=== PATIENT | male | born 1955 | race Caucasian/White ===

== ENCOUNTER 2018-11-24 04:56 | Inpatient (IN) ==
[2018-11-24] MEDS ORDERED: FUROSEMIDE 40 MG/4 ML VIAL IV ONE (05:33)
--- NOTE | 2018-11-24 05:40 | Emergency Department Note ---
SOB HPI - General Chief Complaint: Shortness of Breath/Dyspnea Stated Complaint: short of breathe Time Seen by Provider: 11/24/18 05:25 Mode of arrival: EMS - History of Present Illness This is a dialysis patient was supposed to start dialysis 1/2-hour ago but he was too short of breath and so came to the emergency room. He has a history of heart failure cardiac arrest respiratory failure in the past. He does appear to grossly be fluid overloaded. However he did break a rib last week and saw Dr. Viera on for some sort of cough syndrome but was not given any medication. He does have a history of congestive heart failure fluid overload cardiac arrest and respiratory failure in the past. He is lethargic. - Related Data Home Medications Medication Instructions Recorded Confirmed aspirin 81 mg tablet,delayed 81 mg PO QDAY tab 02/10/15 05/24/17 release insulin U- 100 regular human 100 See Dose Instructions SUB-Q 02/10/15 05/24/17 unit/mL injection solution .COMPLEX ml insulin glargine (U- 100) 100 60 unit SUB-Q BID ml 01/03/16 05/24/17 unit/mL subcutaneous solution prednisoLONE 1% OPHTH DROPS [Pred 1 gtt OD DAILY 08/22/16 05/24/17 Forte Ophth Drops] amLODIPine [Norvasc] 0.5 tab PO DAILY 05/24/17 05/24/17 cyanocobalamin (vit B-12) 1,000 1,000 mcg PO QDAY 10/18/17 mcg tablet lubiprostone 24 mcg capsule 24 mcg PO QDAY PRN cap 10/18/17 minocycline 50 mg capsule 50 mg PO BID cap 10/18/17 Previous Rx's Medication Instructions Recorded pramipexole 0.25 mg tablet 0.25 mg PO HS #30 tab 04/09/18 calcium acetate 667 mg tablet 667 mg PO TID #90 tab 05/15/18 sevelamer HCl 800 mg tablet 2,400 mg PO TID #270 tab 06/23/18 vitamin B complex-vitamin C 100 1 tab PO QDAY #90 tab 07/21/18 mg-folic acid 1 mg tablet gabapentin 100 mg capsule 300 mg PO QDAY #90 cap 10/08/18 allopurinol 100 mg tablet 50 mg PO QDAY 90 Days #45 tab 10/21/18 losartan 50 mg tablet 50 mg PO QDAY #90 tab 10/21/18 rosuvastatin 10 mg tablet 10 mg PO QDAY #30 tab 10/21/18 Allergies Allergy/AdvReac Type Severity Reaction Status Date / Time iron [IRON] Allergy Severe Anaphylaxis Verified 11/19/16 10:55 acetaminophen [From [place]] Allergy Mild Hives Verified 11/19/16 10:55 hydrocodone [From [place]] Allergy Mild Hives Verified 11/19/16 10:55 exenatide [From [place]] Allergy Unknown Unknown Verified 11/19/16 10:55 lisinopril Allergy Unknown Unknown Verified 11/19/16 10:55 Review of Systems All systems ED: reviewed and negative except as stated. Past Medical History - Past Medical History [facility] Narrative: Medical History Cardiac arrest (Acute) Respiratory failure (Acute) Congestive heart failure (Acute) Fluid overload (Acute) Acute decompensated heart failure (Acute) Cellulitis of toe (Acute) Hypoxia (Acute) Acute respiratory failure (Acute) Pulmonary edema with congestive heart failure (Acute) Acute respiratory failure with hypoxia (Acute) Anemia (Chronic) Upper respiratory tract infection (Chronic) Hypertensive renal disease with renal failure (Chronic) Hypertensive renal disease (Chronic) Edema (Chronic) Diabetes mellitus type 2 in obese (Chronic) Chronic kidney disease, stage IV (severe) (Chronic) Vitamin D deficiency (Acute) Tobacco abuse (Acute) Testosterone deficiency (Acute) Sleep apnea (Chronic) Secondary hyperparathyroidism of renal origin (Chronic 08/12/13) Proteinuria (Chronic) Peripheral neuropathy (Acute) Peptic ulcer disease (Acute) Osteoarthritis, knee (Acute) Obesity (Acute) Muscle cramps (Acute 03/07/14) 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 (Acute) Hypertension, essential (Acute) Hyperlipemia (Acute) Hyperkalemia (Acute 07/12/14) HTN (hypertension) (Chronic) Gastroesophageal reflux (Acute) Erectile dysfunction (Acute) Diabetic nephropathy (Acute) Diabetes mellitus type II, uncontrolled (Chronic) Osteoarthrosis (Acute) Congestive heart failure (Acute) Colon polyps (Acute) Chronic obstructive pulmonary disease (Acute) Chronic kidney disease, stage II (mild) (Acute) CAD (coronary artery disease) (Acute) Back pain (Acute) Anemia in chronic kidney disease (Chronic 08/12/13) Past Surgical History History of arthroscopic knee surgery (Acute) History of cataract surgery (Chronic) Family History Sister Diabetes mellitus Father Acute myocardial infarction, Onset Age: 52 Mother Obesity Medical history: Reports: arthritis, COPD, DM, hyperlipidemia, hypertension, renal disease - Social History smoking status: Never smoker Physical Exam Limitations: altered mental status General appearance: lethargic Head: atraumatic Eye: Present: normal appearance ENT: normal exam Neck: Present: normal inspection Chest: Present: normal inspection Respiratory: Present: rales/crackles Cardiovascular: Present: regular rate, normal rhythm, normal heart sounds Abdominal: Present: soft. Absent: distention, tenderness Neurological: Present: alert Psychiatric: Present: normal affect Skin: Present: dry Course Vital Signs Pulse Rate 80 11/24/18 04:57 Respiratory Rate 27 H 11/24/18 04:57 Blood Pressure 153/68 11/24/18 04:57 Pulse Oximetry (%) 100 11/24/18 04:57 Pulse Rate 77 11/24/18 07:17 Respiratory Rate 21 11/24/18 07:17 Blood Pressure 128/55 11/24/18 07:17 Pulse Oximetry (%) 97 11/24/18 07:17 Shortness of Breath/Dyspnea - [facility] Narrative Medical decision making narrative: Portable chest x-ray is not great quality but probably shows fluid overload. I discussed the case with Dr. Mendes and Dr. Ferris and we will start the patient on BiPAP moving to the ICU and initiate dialysis there. He also does still make some urine so we will give Lasix 40 mg IV. Chest x-ray also read by the radiologist as not excluding pneumonia. Did blood cultures and started him on Levaquin and Rocephin. - Lab Data Result diagrams: 11/24/18 05:40 11/24/18 05:40 Lab Results 11/24/18 11/24/18 11/24/18 Range/Units 05:40 05:40 05:40 WBC 14.6 H (4.5-11.0) K/mcL RBC 4.84 (4.50-5.90) M/mcL Hgb 13.0 L (13.5-16.5) g/dL Hct 42.3 (41.0-55.0) % MCV 87.4 (80.0-100.0) fL MCH 26.9 (26.0-34.0) pg MCHC 30.8 L (31.0-36.0) g/dL RDW 18.4 H (11.5-14.5) % Plt Count 256 (140-440) K/mcL MPV 8.8 (7.4-10.4) fL Gran % 91.0 H (38.0-78.0) % Lymph % (Auto) 2.8 L (15.5-49.0) % Grand % (Auto) 5.9 (1.0-12.0) % Eos % (Auto) 0.1 (0.0-7.0) % Baso % (Auto) 0.2 (0.0-2.0) % Gran # 13.3 H (1.8-8.0) K/mcL Lymph # (Auto) 0.4 L (1.5-4.8) K/mcL Grand # (Auto) 0.9 (0.1-0.9) K/mcL Eos # (Auto) 0 (0.0-0.7) K/mcL Baso # (Auto) 0 (0.0-0.3) K/mcL Sodium 135 (133-145) mmol/L Potassium 6.8 H* (3.3-5.1) mmol/L Chloride 88 L (96-108) mmol/L Carbon Dioxide 19 L (22-30) mmol/L Anion Gap 28.0 H (8-16) BUN 91 H (8-23) mg/dl Creatinine 8.7 H* (0.7-1.2) mg/dl GFR Calculation 6 Glucose 111 H (70-105) mg/dL Calcium 8.0 L (8.6-10.4) mg/dl Total Bilirubin 0.6 (0.0-1.0) mg/dL AST 54 H (0-37) U/l ALT 36 (0-40) U/l Alkaline Phosphatase 133 H (39-117) U/L Troponin T 0.23 H* (0-0.03) ng/ml NT-Pro-B Natriuret Pep 88336.0 H (0-125) pg/ml Total Protein 7.5 (5.9-8.4) gm/dL Albumin 4.0 (3.2-5.2) gm/dL Globulin 3.5 (2.2-3.7) gm/dL Albumin/Globulin Ratio 1.1 (1.0-2.3) Procalcitonin (<0.10) ng/mL 11/24/18 Range/Units 05:40 WBC (4.5-11.0) K/mcL RBC (4.50-5.90) M/mcL Hgb (13.5-16.5) g/dL Hct (41.0-55.0) % MCV (80.0-100.0) fL MCH (26.0-34.0) pg MCHC (31.0-36.0) g/dL RDW (11.5-14.5) % Plt Count (140-440) K/mcL MPV (7.4-10.4) fL Gran % (38.0-78.0) % Lymph % (Auto) (15.5-49.0) % Grand % (Auto) (1.0-12.0) % Eos % (Auto) (0.0-7.0) % Baso % (Auto) (0.0-2.0) % Gran # (1.8-8.0) K/mcL Lymph # (Auto) (1.5-4.8) K/mcL Grand # (Auto) (0.1-0.9) K/mcL Eos # (Auto) (0.0-0.7) K/mcL Baso # (Auto) (0.0-0.3) K/mcL Sodium (133-145) mmol/L Potassium (3.3-5.1) mmol/L Chloride (96-108) mmol/L Carbon Dioxide (22-30) mmol/L Anion Gap (8-16) BUN (8-23) mg/dl Creatinine (0.7-1.2) mg/dl GFR Calculation Glucose (70-105) mg/dL Calcium (8.6-10.4) mg/dl Total Bilirubin (0.0-1.0) mg/dL AST (0-37) U/l ALT (0-40) U/l Alkaline Phosphatase (39-117) U/L Troponin T (0-0.03) ng/ml NT-Pro-B Natriuret Pep (0-125) pg/ml Total Protein (5.9-8.4) gm/dL Albumin (3.2-5.2) gm/dL Globulin (2.2-3.7) gm/dL Albumin/Globulin Ratio (1.0-2.3) Procalcitonin 0.99 (<0.10) ng/mL - Radiology Data Radiology results reviewed: Yes I reviewed the patient's radiology results. Disposition Pt seen by CABLEWAY OPERATOR/PA only: No Clinical Impression: Community acquired pneumonia, Congestive heart failure, Fluid overload, Chronic kidney disease, stage IV (severe) Disposition: Xfer As Inpt ([facility]) Condition: Fair Time of Disposition: 08:54
--- NOTE | 2018-11-24 05:47 | XRay Report ---
INDICATION: History of congestive heart failure. Dyspnea. TECHNIQUE: AP chest x-ray,portable semiupright COMPARISON: Previous examination dated 03/12/2017 FINDINGS:Previous median sternotomy. There is mild cardiomegaly. Upper lobe vascularity is prominent suggesting pulmonary congestion. Upright PA and lateral chest x-ray recommended when clinically appropriate. There is mild left basilar infiltrate. This may be benign volume loss but pneumonia is possible. Clinical correlation and follow-up radiographs are necessary. IMPRESSION: 1. Mild cardiomegaly and probable pulmonary congestion 2. Left lower lobe parenchymal density consistent with atelectasis or pneumonia. 3. Upright PA and lateral chest x-ray is recommended when clinically appropriate Interpreted and Authenticated by: Chris Pérez 11/24/18
[2018-11-24] MEDS ORDERED: LEVOFLOXACIN 750 MG/150 ML BAG IV ONE (06:16)
[2018-11-24] MEDS ORDERED: cefTRIAXone 1 GM VIAL IV ONE (06:16)
[2018-11-24 06:41] LABS: Basophils # (Auto) 0 K/mcL (0.0-0.3); Basophils % (Auto) 0.2 % (0.0-2.0); Eosinophils # (Auto) 0 K/mcL (0.0-0.7); Eosinophils % (Auto) 0.1 % (0.0-7.0); Lymphocytes # (Auto) 0.4 K/mcL (1.5-4.8); Lymphocytes % (Auto) 2.8 % (15.5-49.0); Mean Cell Volume 87.4 fL (80.0-100.0); Mean Corpuscular HGB Conc 30.8 g/dL (31.0-36.0); Monocytes # (Auto) 0.9 K/mcL (0.1-0.9); Monocytes % (Auto) 5.9 % (1.0-12.0); Platelet Count 256 K/mcL (140-440); RBC 4.84 M/mcL (4.50-5.90); Red Cell Distribution Width 18.4 % (11.5-14.5)
[2018-11-24] MEDS ORDERED: VANCOMYCIN 1,500 MG in 0.9 % SODIUM CHLORIDE 500 ML IV ONE ×2 (06:53→15:30)
[2018-11-24 06:59] LABS: ALT/SGPT 36 U/l (0-40); Albumin/Globulin Ratio 1.1 (1.0-2.3); Alkaline Phosphatase 133 U/L (39-117); Blood Urea Nitrogen 91 mg/dl (8-23)
[2018-11-24] MEDS ORDERED: CALCIUM GLUCONATE 4.65 MEQ/10 ML VIAL IV ONE (07:10)
--- NOTE | 2018-11-24 07:50 | Internal Med History&Physical ---
Medical - H&P: HPI Patient information: Note initiated : 11/24/18 at 7:40 am Service Date, if different from initiated Date: [] Patient: Delonte Gutierres a 63 y/o M admitted on for SOB . Chief Complaint: [] History of present illness: Mr. Gutierres is a 63 year old M with a very complicated medical history, and sees multiple providers in different medical systems, he presents to the ER today accompanied by his daughter for evaluation of shortness of breath, cough, weakness and lethargy. The patient is unable to provide a meaningful history, most of the history is from chart review and talking with the daughter who is at bed side. The patient has been in his usual self, and had his dialysis as per schedule. The patient had a fall a day before his previous dialysis I believe, he had pain on the left side of the chest, he was admitted at [facility] and diagnosed with a rib fracture. Patient was given pain medications, the patient had some cough, but otherwise did not have any other issues. Yesterday the patient was noted to be weak, had cough, and had shortness of breath on minimal exertion. The daughter this morning when she woke up to get the patient for dialysis noted that he was unable to stand and his mental status was noted at baseline. He was therefore brought to the emergency room for further evaluation. The patient has had right-sided below-knee amputation done I believe for peripheral vascular disease, according to the daughter the patient left leg was not significantly discolored when she put the socks on. During my evaluation today in the emergency room the patient's left leg appeared to be purplish in color, and was cold to touch. According to the daughter this was new since last night. In the emergency room on presentation patient was afebrile, tachypneic, heart rate 80 blood pressure 155/ 60 saturating 100% on 2 L, the patient labs show WBC count of 14.6 hemoglobin 13 platelets 256, sodium 135 potassium 6.8 bicarbonate 19 creatinine 8.7 glucose 111, lactic acid 1.8, troponin 0 0.23 has been elevated in the past, pro calcitonin 0.99. Blood gas, venous, shows pH of 7.13, PCO2 66 PO2 32 EKG shows sinus rhythm incomplete right bundle branch block. Chest x-ray shows left lower lobe pneumonia versus atelectasis mild cardiomegaly and pulmonary congestion. Echocardiogram done in 2014 showed mild aortic stenosis left ventricular hypertrophy and normal left ventricular ejection fraction. The left lower extremity had positive Doppler, however no palpable pulses, the foot was cool to touch, not sure if this is a chronic finding or an acute findi ng however according to the daughter this is a new finding since yesterday. We will get a CT angios done on the left foot. Nephrology has been consulted in the ED, urgent dialysis scheduled. Patient is being admitted to the hospital for further management ROS unobtainable: due to mental status Medical - H&P: PMH Medical history: Medical History Diabetes Mellitus Type II,Polyneuropathy in Diabetes Mellitus,Degenerative Joint Disease,Chronic Back Pain,CHF,Left Knee Osteoarthritis,CAD,COPD,Right Plantar Fasciitis,Colon Polyp(s),GERD,Hyperkalemia,PUD,Secondary Hyperparathyroidism, hx of MRSA, SCC Left neck Webster exc 01/22/18. Surgical history: Past Surgical History Past Surgical History: Reviewed, no changes required. Left Knee Arthroscopy x 3, Left Heart Catheterization and Angiography, 12/19/2005, Lucita, Right Foot I&D with Wound Debridement, 09/19/2010, Lino, Colonoscopy x 2, 01/23/2006 and 10/12/2014, Marissa, EGD, 10/13/2014, Marissa, Radionuclide Myocardial Perfusion, 10/02/2010, Excision of Left Cataract(s), 11/2015, Open heart surgery, Right 5th toe amputation, 08/31/16, [facility], Right partial 5th metatarsal amputation, 09/20/16, [facility], Right 3rd and 4th TMA, 11/25/16, Sayda [facility],, Right 1st, 2nd and 4th transmetatarsal amputation, 03/12/17, Ahmed tube shunt with graft right eye, 06/17/2017 - Dann [facility]lejo [facility] at [facility], Right knee amputation MAY 2017.Revised Amputation August 2017 Pertinent family history: Family History Sister Diabetes mellitus Father Acute myocardial infarction, Onset Age: 52 Mother Obesity Medical - H&P: Meds Home Medications Medication Instructions Recorded Confirmed Type aspirin 81 mg tablet,delayed 81 mg PO QDAY tab 02/10/15 05/24/17 History release insulin U- 100 regular human 100 See Dose Instructions SUB-Q 02/10/15 05/24/17 History unit/mL injection solution .COMPLEX ml insulin glargine (U- 100) 100 60 unit SUB-Q BID ml 01/03/16 05/24/17 History unit/mL subcutaneous solution prednisoLONE 1% OPHTH DROPS [Pred 1 gtt OD DAILY 08/22/16 05/24/17 History Forte Ophth Drops] amLODIPine [Norvasc] 0.5 tab PO DAILY 05/24/17 05/24/17 History cyanocobalamin (vit B-12) 1,000 1,000 mcg PO QDAY 10/18/17 History mcg tablet lubiprostone 24 mcg capsule 24 mcg PO QDAY PRN cap 10/18/17 History minocycline 50 mg capsule 50 mg PO BID cap 10/18/17 History pramipexole 0.25 mg tablet 0.25 mg PO HS #30 tab 04/09/18 Rx calcium acetate 667 mg tablet 667 mg PO TID #90 tab 05/15/18 Rx sevelamer HCl 800 mg tablet 2,400 mg PO TID #270 tab 06/23/18 Rx vitamin B complex-vitamin C 100 1 tab PO QDAY #90 tab 07/21/18 Rx mg-folic acid 1 mg tablet gabapentin 100 mg capsule 300 mg PO QDAY #90 cap 10/08/18 Rx allopurinol 100 mg tablet 50 mg PO QDAY 90 Days #45 tab 10/21/18 Rx losartan 50 mg tablet 50 mg PO QDAY #90 tab 10/21/18 Rx rosuvastatin 10 mg tablet 10 mg PO QDAY #30 tab 10/21/18 Rx Allergies Allergy/AdvReac Type Severity Reaction Status Date / Time iron [IRON] Allergy Severe Anaphylaxis Verified 11/19/16 10:55 acetaminophen [From [place]] Allergy Mild Hives Verified 11/19/16 10:55 hydrocodone [From [place]] Allergy Mild Hives Verified 11/19/16 10:55 exenatide [From [place]] Allergy Unknown Unknown Verified 11/19/16 10:55 lisinopril Allergy Unknown Unknown Verified 11/19/16 10:55 Medical - H&P: Exam - Constitutional Vitals: Pulse Resp BP Pulse Ox 77 21 128/55 97 11/24/18 07:17 11/24/18 07:17 11/24/18 07:17 11/24/18 07:17 Exam: GENERAL: The patient is a well-developed, obese , well-nourished in no apparent distress. Is drowys, and and oriented x 1. VITAL SIGNS: Reviewed and as noted elsewhere. HEENT: Head is normocephalic and atraumatic. Extraocular muscles are intact. Pupils are equal, round, and reactive to light. Nares appeared normal. Mouth appears any without lesions. Mucous membranes are dry. NECK: Normal to inspection, Supple, No lymphadenopathy or thyromegaly. LUNGS: Air entry equal on both sides, decreased air entry on both sides, prolonged exp phase, mild exp wheeze, bibasilar crackles, No accessory muscles of respiration, pt on bipap. HEART: Regular rate and rhythm normal, S1 and S2 heard, no Gallop, S3 or Rub Noted, systolic murmur mitral region, s4 heard, ABDOMEN: Soft, nontender, and nondistended. Positive bowel sounds. No hepatosplenomegaly was noted. EXTREMITIES: No cyanosis, clubbing, rash, Right bka, Left leg, has edema ++, foot cold to touch, purplish huse, but has significant v aricosities, no DP to palpation, but doppler positive. NEUROLOGIC: Cranial nerves II through XII are grossly intact. Motor and Sensory System Grossly Intact PSYCHIATRIC: drowsy on bipap SKIN: No jaundice, No rash noted. Medical - H&P: Reslt - Labs CBC & Chem 7: 11/24/18 05:40 11/24/18 05:40 Labs: Short CBC 11/24/18 Range/Units 05:40 WBC 14.6 H (4.5-11.0) K/mcL Hgb 13.0 L (13.5-16.5) g/dL Hct 42.3 (41.0-55.0) % Plt Count 256 (140-440) K/mcL BMP 11/24/18 05:40 Sodium 135 Potassium 6.8 H* Chloride 88 L Carbon Dioxide 19 L BUN 91 H Creatinine 8.7 H* Glucose 111 H Calcium 8.0 L Cardiac Enzymes 11/24/18 Range/Units 05:40 Troponin T 0.23 H* (0-0.03) ng/ml Liver Function 11/24/18 Range/Units 05:40 Total Bilirubin 0.6 (0.0-1.0) mg/dL AST 54 H (0-37) U/l ALT 36 (0-40) U/l Alkaline Phosphatase 133 H (39-117) U/L Albumin 4.0 (3.2-5.2) gm/dL Medical - H&P: A/P - Narrative A/P Narrative: A/P Acute on chr Hypoxic/Hypercapenic Respiratory Failure Acute COPD Exacerbation Acute CHF Exacerbation, Diastolic End Stage Renal Disease, On HD, followed by Dr Mendes Peripheral Vascular disease Health Care Associated Pneumonia. Acute Hyperkalemia Diabetes Mellitus CAD s/p CABG HTN HLD Chr back pain Peripheral neuropathy Plan Admit to ICU on BIPAP for respirtory management. Nephrology consulted for urgent Hemodialysis Given possible acute on chronic limb ischemia, will get CTA of the left leg, before HD. Medical Management of Hyperkalemia/ Calcium and lasix given, HD planned soon. 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
[2018-11-24] MEDS ORDERED: IOPAMIDOL 100 ML BOTTLE IV ONE (08:34)
[2018-11-24] MEDS ORDERED: NALOXONE HCL 0.4 MG/ML VIAL IV PRN (09:00)
[2018-11-24] MEDS ORDERED: DEXTROSE 31 GM ORAL.SUSP PO PRN (09:00)
[2018-11-24] MEDS ORDERED: ONDANSETRON 4 MG/2 ML VIAL IV PRN (09:00)
[2018-11-24] MEDS ORDERED: ACETAMINOPHEN 325 MG TABLET PO PRN (09:00)
[2018-11-24] MEDS ORDERED: NALOXONE HCL 0.4 MG/ML VIAL ONE (09:00)
[2018-11-24] MEDS ORDERED: VANCOMYCIN PER PHARMACY IV ONE (09:00)
[2018-11-24] MEDS ORDERED: DEXTROSE 50% 50 ML VIAL IV PRN (09:00)
[2018-11-24] MEDS ORDERED: IPRATROPIUM/ALBUTEROL 3 ML AMPUL.NEB NEB ONE (09:01)
--- NOTE | 2018-11-24 09:08 | Cat Scan Report ---
CLINICAL INFORMATION: Diabetes. Previous right below the knee amputation. Cold left foot TECHNIQUE: 80 mL contrast material injected. Routine distal aortogram and runoff performed. MIP and MPR reformatted images were obtained COMPARISON: None FINDINGS: Previous right below the knee amputation. Calcifications in the distal abdominal aorta. No abdominal aortic aneurysm. There is dense calcification in the common iliac arteries bilaterally. There is no stenosis or occlusion. External iliac arteries are negative. There is calcification in the right common femoral artery. This vessel is patent without stenosis. There is extensive calcification in the right superficial femoral artery. There are multiple stenoses estimated at approximately 50% diameter. There is a stent in the distal right superficial femoral artery. No definite contrast is identified within the stent lumen consistent with complete occlusion. The right popliteal artery is opacified proximally. There is dense calcification of the distal popliteal artery. I believe this is patent. There is calcification of the anterior tibial artery without definite occlusion. Posterior tibial artery and peroneal artery are calcified and probably occluded. There is a 3 cm subcutaneous fluid collection at the right BKA stump. There is dense calcification of the left common femoral artery. There is 50% diameter stenosis of the proximal left superficial femoral artery. There are is extensive calcified plaque in the left superficial femoral artery. There is extensive luminal irregularity with short segment stenoses and occlusions. Left popliteal artery is patent. There is 50% diameter stenosis of the distal left popliteal artery. There is calcification of the left tibial peroneal trunk and short segment occlusion. Anterior and posterior tibial arteries are calcified. Left anterior tibial artery is occluded. There is distal reconstitution. Left posterior tibial artery is patent to the ankle. Incidental note is made of a popliteal cyst There is no pelvic mass. No free pelvic fluid. No localized fluid collections. There is prominent fecal material within the rectum. No pelvic or sacral fracture. No hip fracture. No evidence for osteomyelitis. No fracture. IMPRESSION: 1. Extensive calcified atherosclerotic plaque. Previous right below the knee amputation 2. Stent in the distal right superficial femoral artery. This is occluded. Multiple stenoses of 50% or greater in the right superficial femoral artery 3. Extensive calcification of the left superficial femoral artery with short segmental stenoses and occlusions. Left popliteal artery is patent 4. Hemodynamically significant stenosis of the distal left popliteal artery 5. Occlusion of the left tibial peroneal trunk. Complete occlusion of the left anterior tibial artery with distal reconstitution Interpreted and Authenticated by: Chris Pérez 11/24/18
[2018-11-24] MEDS: PANTOPRAZOLE 40 MG TABLET PO SCH (09:13)
[2018-11-24] MEDS: HEPARIN 5,000 UNIT/ML VIAL SQ SCH ×2 (09:17→22:17)
[2018-11-24] MEDS: methylPREDNISolone SOD SUCC 125 MG/2 ML VIAL IV SCH ×3 (09:18→22:17)
[2018-11-24] MEDS ORDERED: CEFEPIME 1 GM VIAL IV ONE (10:00)
[2018-11-24] MEDS ORDERED: LORazepam 2 MG/ML VIAL IV ONE (10:04)
[2018-11-24] MEDS: IPRATROPIUM/ALBUTEROL 3 ML AMPUL.NEB NEB SCH ×4 (11:12→22:48)
[2018-11-24] MEDS: INSULIN LISPRO 1 UNIT/0.01 ML UNIT SQ SCH ×3 (14:38→21:10)
[2018-11-24] MEDS: 0.9 % SODIUM CHLORIDE 10 ML SYRINGE IV SCH ×2 (14:38→22:17)
[2018-11-24] MEDS ORDERED: VANCOMYCIN PER PHARMACY IV SCH (15:30)
[2018-11-24] MEDS ORDERED: 0.9 % SODIUM CHLORIDE 250 ML IV ONE (15:45)
[2018-11-24] MEDS ORDERED: 0.9 % SODIUM CHLORIDE 500 ML IV ONE ×2 (16:23→21:48)
--- NOTE | 2018-11-24 18:14 | Nephrology Consult Note ---
History of Present Illness - Reason for Consult Patient information: Note initiated : 11/24/18 at 6:08 pm Service Date, if different from initiated Date: [] Patient: Delonte Gutierres 63 y/o M admitted on 11/24/18 for SOB . 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 His daughter was driving him to dialysis this am and found him very SOB and confused and she reports an episode of vomiting and hence brought him to ED instead. Patient was evaluated in the ED and found hypoxic, encephalopathic and his labs were significant for elevated white count, hyperkalemia, acidosis and his CXR showed mild pulmonary congestion and possible atelectasis vs pna He was also noted to purplish discoloration of his right LE and it was cold and hence CTA was obtained The patient was started on bipap ventilation The patient was ? hospitalised at [facility] for his rib fracture He is been treated for possible HCAP PNA, and encephalopathy Review of Systems All systems PM: reviewed and no additional remarkable complaints except as stated (in HPI) Past History Past medical history: DM type 2 with retinopathy, neuropathy, nephropathy ESRD on HD anemia of CKD secondary hyperparathyroidism HTN CHF KEY on cpap dyslipidemia PVD ? COPD Past surgical history: S/P avf s/p CABG and mitral valve repair h/o left BKA Past family history: not pertinent Past social history: lives with his retired h/o smoking, currently using nicotine patch remote history of smoking marijuana and use of cocaine Medications and Allergies Home Medications Medication Instructions Recorded Confirmed Type aspirin 81 mg tablet,delayed 81 mg PO QDAY tab 02/10/15 11/24/18 History release insulin U- 100 regular human 100 See Dose Instructions SUB-Q 02/10/15 11/24/18 History unit/mL injection solution .COMPLEX ml insulin glargine (U- 100) 100 55 unit SUB-Q BID ml 01/03/16 11/24/18 History unit/mL subcutaneous solution prednisoLONE 1% OPHTH DROPS [Pred 1 gtt OD DAILY 08/22/16 11/24/18 History Forte Ophth Drops] amLODIPine [Norvasc] 2.5 mg PO DAILY 05/24/17 11/24/18 History cyanocobalamin (vit B-12) 1,000 1,000 mcg PO QDAY 10/18/17 11/24/18 History mcg tablet lubiprostone 24 mcg capsule 24 mcg PO QDAY PRN cap 10/18/17 11/24/18 History minocycline 50 mg capsule 50 mg PO BID cap 10/18/17 11/24/18 History calcium acetate 667 mg tablet 667 mg PO TID #90 tab 05/15/18 11/24/18 Rx vitamin B complex-vitamin C 100 1 tab PO QDAY #90 tab 07/21/18 11/24/18 Rx mg-folic acid 1 mg tablet allopurinol 100 mg tablet 50 mg PO QDAY 90 Days #45 tab 10/21/18 11/24/18 Rx losartan 50 mg tablet 50 mg PO QDAY #90 tab 10/21/18 11/24/18 Rx rosuvastatin 10 mg tablet 10 mg PO QDAY #30 tab 10/21/18 11/24/18 Rx DULoxetine HCL [Cymbalta] 60 mg PO DAILY 11/24/18 11/24/18 History Furosemide [Lasix] 160 mg PO BID 11/24/18 11/24/18 History Gabapentin [Neurontin] 100 mg PO QDAY 11/24/18 11/24/18 History Gabapentin [Neurontin] 200 mg PO HS 11/24/18 11/24/18 History Latanoprost/Pf [Latanoprost 0.005% 1 drp OU DAILY 11/24/18 11/24/18 History Eye Drop] Pramipexole [Mirapex] 0.125 mg PO HS 11/24/18 11/24/18 History Pramipexole [Mirapex] 0.25 mg PO HS 11/24/18 11/24/18 History Ranitidine HCl [Heartburn Relief] 150 mg PO BID 11/24/18 11/24/18 History Sevelamer HCl [Renagel] 800 mg PO TID 11/24/18 11/24/18 History oxyCODONE HCL [Oxycodone HCl] 1 - 2 tab PO Q6 PRN 11/24/18 11/24/18 History Allergies Allergy/AdvReac Type Severity Reaction Status Date / Time iron [IRON] Allergy Severe Anaphylaxis Verified 11/19/16 10:55 acetaminophen [From [place]] Allergy Mild Hives Verified 11/19/16 10:55 hydrocodone [From [place]] Allergy Mild Hives Verified 11/19/16 10:55 exenatide [From [place]] Allergy Unknown Unknown Verified 11/19/16 10:55 lisinopril AdvReac Mild Cough Verified 11/24/18 09:25 Exam - Vital Signs Vital signs: Temp Pulse Resp BP Pulse Ox 99.5 F H 86 18 74/44 95 11/24/18 14:35 11/24/18 16:03 11/24/18 16:03 11/24/18 16:01 11/24/18 16:03 - General Appearance General appearance: appears started age, chronically ill EENT: mucous membranes moist Neck: no JVD Respiratory: rales, course breath sounds Cardiology: no rub, edema, irregular rhythm Gastrointestinal: no tenderness, no guarding Integumentary: no rash Neurologic: obtunded Musculoskeletal: no erythema, no cyanosis Results - Lab Results 11/24/18 05:40 11/24/18 05:40 Most recent lab results Calcium 8.0 mg/dl (8.6-10.4) L 11/24/18 05:40 Assessment and Plan (1) ESRD (end stage renal disease) on dialysis Status: Acute (2) Metabolic acidosis with respiratory acidosis Status: Acute (3) Community acquired pneumonia Status: Acute (4) Acute respiratory failure Status: Acute (5) Hyperkalemia Status: Acute - Narrative A/P Narrative: esrd on HD, patient with hyperkalemia, severe metabolic and respiratory acidosis, PNA, AMS from multifactorial etiology HD done today for 4 hrs using revaclear dialyser, 1K/2K dialysate for 2 hrs each, 2.5Ca, UF goal of 3.8L achieved with using QB 350ml/min, QD 800ml/min patient did become mildly hypotensive post dialysis for which he received IV fluid bolus consider pressors if no improvement will monitor for needs of HD please dose meds to dialysis Will follow along
[2018-11-24] MEDS ORDERED: THIAMINE 100 MG in 0.9 % SODIUM CHLORIDE 50 ML IV ONE (20:36)
[2018-11-24] MEDS ORDERED: THIAMINE 100 MG/ML VIAL ONE (20:50)
[2018-11-24 21:40] LABS: Basophils # (Auto) 0 K/mcL (0.0-0.3); Basophils % (Auto) 0 % (0.0-2.0); Eosinophils # (Auto) 0 K/mcL (0.0-0.7); Eosinophils % (Auto) 0 % (0.0-7.0); Granulocytes % (Auto) 93.4 % (38.0-78.0); Lymphocytes # (Auto) 0.2 K/mcL (1.5-4.8); Mean Cell Volume 86.8 fL (80.0-100.0); Monocytes # (Auto) 0.5 K/mcL (0.1-0.9); Monocytes % (Auto) 4.6 % (1.0-12.0); Platelet Count 188 K/mcL (140-440); RBC 4.78 M/mcL (4.50-5.90); Red Cell Distribution Width 17.9 % (11.5-14.5)
[2018-11-24 22:02] LABS: ALT/SGPT 41 U/l (0-40); Albumin 3.4 gm/dL (3.2-5.2); Albumin/Globulin Ratio 1.1 (1.0-2.3); Alkaline Phosphatase 101 U/L (39-117); Bilirubin,Direct < 0.2 mg/dL (0.0-0.3); Blood Urea Nitrogen 47 mg/dl (8-23); Gamma Glutamyl Transpeptidase 34 U/L (8-61); Uric Acid 4.7 mg/dL (2.5-8.0)
[2018-11-25 02:50] LABS: Amphetamine Screen,Urine SUSPECT POSITIVE (NONDETECTED); Benzodiazepines Screen,Urine NONE DETECTED (NONDETECTED); Cocaine Screen,Urine NONE DETECTED (NONDETECTED); Opiate Screen,Urine NONE DETECTED (NONDETECTED); Oxycodone, Urine Screen SUSPECT POSITIVE (NONDETECTED)
[2018-11-25] MEDS: IPRATROPIUM/ALBUTEROL 3 ML AMPUL.NEB NEB SCH ×3 (03:19→11:02)
[2018-11-25] MEDS: 0.9 % SODIUM CHLORIDE 10 ML SYRINGE IV SCH ×2 (05:28→13:53)
[2018-11-25] MEDS: methylPREDNISolone SOD SUCC 125 MG/2 ML VIAL IV SCH ×2 (05:28→13:53)
[2018-11-25 06:17] LABS: Basophils # (Auto) 0 K/mcL (0.0-0.3); Basophils % (Auto) 0 % (0.0-2.0); Eosinophils # (Auto) 0 K/mcL (0.0-0.7); Eosinophils % (Auto) 0 % (0.0-7.0); Granulocytes % (Auto) 93.4 % (38.0-78.0); Lymphocytes # (Auto) 0.3 K/mcL (1.5-4.8); Mean Cell Volume 87.6 fL (80.0-100.0); Mean Corpuscular HGB Conc 31.1 g/dL (31.0-36.0); Monocytes # (Auto) 0.7 K/mcL (0.1-0.9); Monocytes % (Auto) 4.6 % (1.0-12.0); Platelet Count 170 K/mcL (140-440); RBC 4.46 M/mcL (4.50-5.90); Red Cell Distribution Width 18.1 % (11.5-14.5)
[2018-11-25] MEDS: PANTOPRAZOLE 40 MG TABLET PO SCH (07:23)
[2018-11-25 07:43] LABS: ALT/SGPT 40 U/l (0-40); Albumin 3.1 gm/dL (3.2-5.2); Alkaline Phosphatase 94 U/L (39-117); Bilirubin,Direct < 0.2 mg/dL (0.0-0.3); Blood Urea Nitrogen 57 mg/dl (8-23); Gamma Glutamyl Transpeptidase 31 U/L (8-61); Uric Acid 5.7 mg/dL (2.5-8.0)
--- NOTE | 2018-11-25 08:30 | XRay Report ---
INDICATION: Pneumonia TECHNIQUE: AP chest x-ray,portable semiupright COMPARISON: Previous examinations dated 11/24/2018 and 03/12/2017 FINDINGS:Significant interval worsening. Bilateral diffuse pulmonary parenchymal infiltrates are not present. These are new. This rapid change suggests diffuse pulmonary edema. Clinical correlation is necessary. Pneumonia or ARDS or possible. IMPRESSION: 1. Significantly worse chest x-ray since 11/24/2018 2. Diffuse pulmonary parenchymal infiltrates. Findings are most consistent with pulmonary edema. Pneumonia or ARDS are possible Interpreted and Authenticated by: Chris Pérez 11/25/18
[2018-11-25] MEDS: HEPARIN 5,000 UNIT/ML VIAL SQ SCH (08:46)
[2018-11-25] MEDS: INSULIN LISPRO 1 UNIT/0.01 ML UNIT SQ SCH ×2 (08:46→13:51)
[2018-11-25] MEDS ORDERED: CEFEPIME 1 GM VIAL IV SCH (09:00)
[2018-11-25] MEDS ORDERED: THIAMINE 100 MG in 0.9 % SODIUM CHLORIDE 50 ML IV SCH (09:00)
--- NOTE | 2018-11-25 11:40 | Transfer Summary ---
Transfer Discharge Sum: Prov Patient information: Note initiated : 11/25/18 at 11:38 am Service Date, if different from initiated Date: [] Patient: eDlonte Gutierres 63 y/o M admitted on 11/24/18 for SOB . Chief Complaint: [] Date of admission: 11/24/18 08:29 Discharge Date: 11/25/18 Consults: 11/24/18 Consult to Physician [CONS] Stat Comment: Consulting Provider: Melinda Mendes Reason For Exam: Physician to Consult Consult to Physician [CONS] Stat Comment: Consulting Provider: Sridevi Ferris Reason For Exam: Physician to Consult Discharging clinician: Sridevi Ferris Transfer Discharge Sum: Med - Medications Active and Home Medications: Home Medications aspirin 81 mg tablet,delayed release 81 mg PO QDAY tab 02/10/15 [History Confirmed 11/24/18] insulin U- 100 regular human 100 unit/mL injection solution See Dose Instructions SUB-Q .COMPLEX ml 02/10/15 [History Confirmed 11/24/18] insulin glargine (U- 100) 100 unit/mL subcutaneous solution 55 unit SUB-Q BID ml 01/03/16 [History Confirmed 11/24/18] prednisoLONE 1% OPHTH DROPS [Pred Forte Ophth Drops] 1 gtt OD DAILY 08/22/16 [History Confirmed 11/24/18] amLODIPine [Norvasc] 2.5 mg PO DAILY 05/24/17 [History Confirmed 11/24/18] cyanocobalamin (vit B-12) 1,000 mcg tablet 1,000 mcg PO QDAY 10/18/17 [History Confirmed 11/24/18] lubiprostone 24 mcg capsule 24 mcg PO QDAY PRN cap 10/18/17 [History Confirmed 11/24/18] minocycline 50 mg capsule 50 mg PO BID cap 10/18/17 [History Confirmed 11/24/18] calcium acetate 667 mg tablet 667 mg PO TID #90 tab 05/15/18 [Rx Confirmed 11/24/18] vitamin B complex-vitamin C 100 mg-folic acid 1 mg tablet 1 tab PO QDAY #90 tab 07/21/18 [Rx Confirmed 11/24/18] allopurinol 100 mg tablet 50 mg PO QDAY 90 Days #45 tab 10/21/18 [Rx Confirmed 11/24/18] losartan 50 mg tablet 50 mg PO QDAY #90 tab 10/21/18 [Rx Confirmed 11/24/18] rosuvastatin 10 mg tablet 10 mg PO QDAY #30 tab 10/21/18 [Rx Confirmed 11/24/18] DULoxetine HCL [Cymbalta] 60 mg PO DAILY 11/24/18 [History Confirmed 11/24/18] Furosemide [Lasix] 160 mg PO BID 11/24/18 [History Confirmed 11/24/18] Gabapentin [Neurontin] 100 mg PO QDAY 11/24/18 [History Confirmed 11/24/18] Gabapentin [Neurontin] 200 mg PO HS 11/24/18 [History Confirmed 11/24/18] Latanoprost/Pf [Latanoprost 0.005% Eye Drop] 1 drp OU DAILY 11/24/18 [History Confirmed 11/24/18] Pramipexole [Mirapex] 0.125 mg PO HS 11/24/18 [History Confirmed 11/24/18] Pramipexole [Mirapex] 0.25 mg PO HS 11/24/18 [History Confirmed 11/24/18] Ranitidine HCl [Heartburn Relief] 150 mg PO BID 11/24/18 [History Confirmed 11/24/18] Sevelamer HCl [Renagel] 800 mg PO TID 11/24/18 [History Confirmed 11/24/18] oxyCODONE HCL [Oxycodone HCl] 1 - 2 tab PO Q6 PRN 11/24/18 [History Confirmed 11/24/18] Active Medications Acetaminophen (Tylenol) 650 mg PO Q4-6HP PRN PRN Reason: PAIN/FEVER > 101 Albuterol/Ipratropium (Duoneb) 3 ml NEB Q4HRT [facility] Last Admin: 11/25/18 11:02 Dose: 3 ml Documented by: Cefepime HCl (Maxipime) 0.5 gm IV Q24H [facility] Last Admin: 11/25/18 09:48 Dose: 0.5 gm Documented by: Dextrose (Dextrose 50%) 0 ml IV UD PRN PRN Reason: Hypoglycemia Diagnostic Test (Pha) (Accu-Chek) 1 each FS ACHS [facility] Last Admin: 11/25/18 08:17 Dose: 1 each Documented by: Glucose (Insta-Glucose) 15 gm PO PRN PRN PRN Reason: Hypoglycemia Heparin Sodium (Porcine) (Heparin) 5,000 unit SQ Q12 [facility] Last Admin: 11/25/18 08:46 Dose: 5,000 unit Documented by: Thiamine HCl 100 mg/ Sodium (Chloride) 51 mls @ 50 mls/hr IV DAILY [facility] Stop: 11/27/18 10:02 Last Infusion: 11/25/18 09:49 Dose: Infused Documented by: Insulin Human Lispro (Humalog) 0 unit SQ ACHS [facility]; Protocol Last Admin: 11/25/18 08:46 Dose: 6 unit Documented by: Methylprednisolone Sodium Succinate (Solu-Medrol) 62.5 mg IV Q8 [facility] Last Admin: 11/25/18 05:28 Dose: 62.5 mg Documented by: Naloxone HCl (Narcan) 0.1 mg IV Q2MIN PRN PRN Reason: Opiate Reversal Last Admin: 11/24/18 16:57 Dose: 0.1 mg Documented by: Ondansetron HCl (Zofran) 4 mg IV Q4-6HP PRN PRN Reason: Nausea And Vomiting Pantoprazole Sodium (Protonix) 40 mg PO QAMAC [facility] Last Admin: 11/25/18 07:23 Dose: Not Given Documented by: Sodium Chloride (Saline Flush) 10 ml IV Q8 [facility] Last Admin: 11/25/18 05:28 Dose: 10 ml Documented by: Vancomycin HCl (Vancomycin Per Pharmacy) 1 order IV UD [facility]; Protocol Transfer Discharge Sum: Hosp Hospital course: Mr. Gutierres is a 63 year old M with a very complicated medical history, and sees multiple providers in different medical systems, he presents to the ER today accompanied by his daughter for evaluation of shortness of breath, cough, weakness and lethargy. The patient is unable to provide a meaningful history, most of the history is from chart review and talking with the daughter who is at bed side. The patient has been in his usual self, and had his dialysis as per schedule. The patient had a fall a day before his previous dialysis I believe, he had pain on the left side of the chest, he was admitted at [facility] and diagnosed with a rib fracture. Patient was given pain medications, the patient had some cough, but otherwise did not have any other issues. Yesterday the patient was noted to be weak, had cough, and had shortness of breath on minimal exertion. The daughter this morning when she woke up to get the patient for dialysis noted that he was unable to stand and his mental status was noted at baseline. He was therefore brought to the emergency room for further evaluation. The patient has had right-sided below-knee amputation done I believe for peripheral vascular disease, according to the daughter the patient left leg was not significantly discolored when she put the socks on. During my evaluation today in the emergency room the patient's left leg appeared to be purplish in color, and was cold to touch. According to the daughter this was new since last night. In the emergency room on presentation patient was afebrile, tachypneic, heart rate 80 blood pressure 155/ 60 saturating 100% on 2 L, the patient labs show WBC count of 14.6 hemoglobin 13 platelets 256, sodium 135 potassium 6.8 bicarbonate 19 creatinine 8.7 glucose 111, lactic acid 1.8, troponin 0 0.23 has been elevated in the past, pro calcitonin 0.99. Blood gas, venous, shows pH of 7.13, PCO2 66 PO2 32 EKG shows sinus rhythm incomplete right bundle branch block. Chest x-ray shows left lower lobe pneumonia versus atelectasis mild cardiomegaly and pulmonary congestion. Echocardiogram done in 2014 showed mild aortic stenosis left ventricular hypertrophy and normal left ventricular ejection fraction. The left lower extremity had positive Doppler, however no palpable pulses, the foot was cool to touch, not sure if this is a chronic finding or an acute finding however according to the daughter this is a new finding since yesterday. We will get a CT angios done on the left foot. Nephrology has been consulted in the ED, urgent dialysis scheduled. The patient was altered throughout yesterday, and briefly responding to narcan, the patient had HD done, post hemodialysis labs showed persisting acidosis. The patient continued to need BiPAP support since yesterday, patient's ABG done today shows pH of 7.23, PCO2 44 PO2 99, lactic acid is 3.3, the patient had a lactic acid of 1.8 on presentation, it was 2.8 yesterday evening and has gone up to 3.3 today. The patient's leukocytosis is worse today, has more than 10% bands. The patient's labs chemistry shows persistent acidosis with a bicarb of 17. Hyperkalemia thankfully has resolved. Chest x-ray done today shows bilateral ARDS which is significantly changed compared to yesterday. The patient troponin also is worse from 0.23 on admission to 0.6 today. Although the patient's mental status is better he remains on BiPAP, with high oxygen needs, the patient has persistent acidosis with worsening lactic acidosis. The patient has severe vasculopathy, end-stage renal disease on dialysis, although he is maintaining his blood pressure at this time I feel that the patient needs more intensive management with the help of an power system electrical engineer and possibly a asphalt machine operator. The patient was presented to Dr. Schultz at [facility] who aggressively accepted the patient for transfer - Time Spent with Patient Total time spent providing and/or coordinating transfer services: Greater than 30 minutes Transfer Discharge Sum: Exam - Constitutional Vitals: Vital Signs Temp Pulse Resp BP Pulse Ox 11/25/18 11:01 99.4 F H 17 122/46 98 11/25/18 10:00 99.7 F H 20 110/39 97 11/25/18 09:44 87 25 H 97 11/25/18 09:00 99.6 F H 18 97/64 97 11/25/18 08:00 99.4 F H 18 124/55 97 11/25/18 07:47 99.6 F H 11/25/18 07:28 84 17 95 11/25/18 07:15 84 11/25/18 07:00 99.5 F H 19 113/55 88 L 11/25/18 06:00 99.7 F H 84 13 123/56 100 11/25/18 05:59 99.7 F H 12 11/25/18 05:10 99.8 F H 88 9 L 98 11/25/18 05:01 99.8 F H 87 14 129/57 100 11/25/18 04:01 87 12 132/57 97 11/25/18 03:13 85 8 L 96 11/25/18 03:01 86 15 132/56 97 11/25/18 03:00 86 12 96 11/25/18 02:01 85 14 121/55 98 11/25/18 02:00 98 11/25/18 01:01 85 0 L 117/53 97 11/25/18 01:00 82 14 96 11/25/18 00:01 62 15 131/64 86 L 04/01/19 23:02 81 14 97 11/24/18 23:01 83 14 106/44 97 11/24/18 22:48 84 15 95 11/24/18 22:45 87 16 11/24/18 22:01 86 16 125/45 97 11/24/18 21:01 86 25 H 107/47 96 11/24/18 20:46 17 83/51 11/24/18 20:31 86 18 92/57 92 11/24/18 20:30 88 23 H 94 11/24/18 20:25 83 18 90 11/24/18 20:16 85 20 101/53 90 11/24/18 20:01 135 H 19 106/60 92 11/24/18 20:00 94 11/24/18 19:46 85 19 118/59 97 11/24/18 19:31 84 16 114/56 95 11/24/18 19:16 84 18 99/60 98 11/24/18 19:01 84 14 103/59 97 11/24/18 18:46 82 14 98/53 97 11/24/18 18:45 86 18 11/24/18 18:44 83 16 97 11/24/18 18:31 83 16 101/54 97 11/24/18 18:16 84 14 102/56 96 11/24/18 18:12 79 15 96 11/24/18 18:01 81 14 100/55 98 11/24/18 17:46 93.8 F L 84 15 103/59 97 11/24/18 17:31 99.1 F H 84 23 H 93/57 96 11/24/18 17:16 97.1 F 79 16 90/49 97 11/24/18 17:01 97.6 F 79 17 82/44 96 11/24/18 16:58 97.0 F 77 13 79/48 96 11/24/18 16:46 13 77/42 11/24/18 16:31 17 72/45 11/24/18 16:16 85 13 74/40 96 11/24/18 16:04 86 17 81/41 95 11/24/18 16:03 86 18 95 11/24/18 16:01 80 16 74/44 94 11/24/18 15:50 91 H 22 95 11/24/18 15:46 21 89/70 04/19 15:37 81 20 81/53 93 11/24/18 15:32 19 76/41 11/24/18 15:19 18 84/47 11/24/18 15:17 19 76/50 11/24/18 15:02 77 20 81/56 94 11/24/18 15:00 93 H 104/70 11/24/18 14:57 98 H 20 104/70 94 11/24/18 14:56 98 H 22 87/58 93 11/24/18 14:51 21 69/50 11/24/18 14:50 103 H 85/49 11/24/18 14:48 42 L 22 80/63 91 11/24/18 14:47 23 H 85/49 11/24/18 14:39 22 118/47 11/24/18 14:36 32 L 25 H 78/64 90 11/24/18 14:35 99.5 F H 104 H 118/47 11/24/18 14:31 23 H 89/75 11/24/18 14:22 35 H 115/70 11/24/18 14:20 98 H 23 H 89/56 11/24/18 14:16 35 H 76/64 11/24/18 14:05 102 H 117/95 11/24/18 14:00 16 117/95 95 11/24/18 13:50 104 H 117/61 11/24/18 13:47 101 H 26 H 97 11/24/18 13:45 23 H 117/61 11/24/18 13:35 98 H 104/70 11/24/18 13:30 23 H 104/70 11/24/18 13:20 97 H 125/68 11/24/18 13:16 24 H 125/68 11/24/18 13:05 98 H 118/66 11/24/18 13:02 28 H 118/66 11/24/18 12:50 95 H 118/73 11/24/18 12:46 26 H 118/73 11/24/18 12:35 100 H 123/64 11/24/18 12:30 22 123/64 11/24/18 12:22 24 H 11/24/18 12:20 101 H 106/65 11/24/18 12:15 26 H 106/65 11/24/18 12:05 95 H 98/71 11/24/18 12:00 28 H 98/71 11/24/18 11:50 92 H 100/61 11/24/18 11:45 90 25 H 100/61 100 Intake and Output 11/24/18 11/25/18 11/25/18 21:59 05:59 13:59 Intake Total 1183 500 51 Output Total 6392 165 Balance -5209 335 51 Intake: IV 1183 500 51 Sodium Chloride 0.9% 250 ml @ 250 Wide Open IV BOLUS ONE Rx#: [id number] Sodium Chloride 0.9% 500 ml @ 433 500 Wide Open IV BOLUS ONE Rx#: [id number] Vitamin B1 100 mg In Sodium 51 Chloride 0.9% 50 ml @ 50 mls/hr IV DAILY [facility] Rx#:[id number] Vancomycin 1,500 mg In Sodium 500 Chloride 0.9% 500 ml @ 333.3 mls/hr IV ONCE ONE Rx#: [id number] Output: Urine Catheter Amount 165 Hemodialysis UF 6392 Other: Urine Appearance Clear Clear Uretheral (Torrez) Clear Clear Urine Color Light Laurita Light Laurita Uretheral (Torrez) Bright Yellow Light Laurita Urine Odor Strong Uretheral (Torrez) Strong Stool Size Large Moderate Stool Color Ziggy Colored Brown Stool Consistency Soft Soft # of times incontinent of 1 Bowels Weight 245 lb 2 oz Additional comments: Constitutional; Afebrile, cooperative, alert, not in distress. Respiratory system: Air Entry equal on both sides, on bipap, dorothy rales, no wheezing CVS- Rate rhythm regular, S1,S2 heard, no gallop, no rub. Abdomen- Soft nontender abdomen, no organomegaly, no tenderness, no guarding or rigidity, MONOTYPER- AOOx3, moving all extremities, no gross focal deficit noted. Transfer Discharge Sum: Data Procedures and tests throughout hospitalization: Pending Orders 11/24/18 Consult to Physician [CONS] Stat Consult to Physician [CONS] Stat 11/24/18 06:35 Blood Culture Stat 11/24/18 07:04 DIALYSIS [Hemodialysis Treatment] .ROUTINE 11/24/18 07:15 Resuscitation Status Routine 11/24/18 09:00 Case Management Referral .Routine Admit as Inpatient Routine Bedrest w/bedside commode .ROUTINE Condition Routine Elevate head of bed .ROUTINE IV Insertion/Management QSHIFT Intake and Output Q4H Oral hygiene .ROUTINE VTE Risk: Assessment ONCE Weight Monitoring QHS Renal/Consistent Carbohydrate Diet Acetaminophen [Tylenol] 650 mg PO Q4-6HP PRN Dextrose 50% See Dose Instructions IV UD PRN Dextrose [Insta-Glucose] 15 gm PO PRN PRN Heparin 5,000 unit SQ Q12 Naloxone HCl [Narcan] 0.1 mg IV Q2MIN PRN Ondansetron [Zofran] 4 mg IV Q4-6HP PRN Pantoprazole [Protonix] 40 mg PO QAMAC methylPREDNISolone SOD SUCC [Solu-MEDROL] 62.[address] to Adjust Diet/Supplements as Needed Routine Occupational Therapy Eval & Tx DAILY Physical Therapy Eval & Tx QD-BID Continuous pulse oximetry .ROUTINE Incentive Spirometry Assess/Tx Q4H Nebulizer management .Routine 11/24/18 11:00 Ipratropium/Albuterol [Duoneb] 3 ml NEB Q4HRT 11/24/18 11:30 Accu-Chek 1 each FS ACHS Insulin Lispro [HumaLOG] See Dose Instructions SQ ACHS 11/24/18 14:00 0.9 % Sodium Chloride [Saline Flush] 10 ml IV Q8 11/24/18 15:30 Vancomycin Per Pharmacy 1 order IV UD 11/24/18 16:58 Torrez [Indwelling Urinary Catheter] CONT 11/25/18 09:00 Cefepime [Maxipime] 0.5 gm IV Q24H Thiamine [Vitamin B1] 100 mg 0.9 % Sodium Chloride [Sodium Chloride 0.9%] 50 ml IV DAILY Transfer Discharge Sum: A/P - Plan Overall status at transfer: patient is not back to baseline Disposition: Xfer [facility] [place] [place] Quality Measure Queries - VTE Deep Vein Thrombosis/Pulmonary Embolism Present on Admission: No
[2018-12-01 09:52] LABS: Blood Urea Nitrogen 129 mg/dl (8-23)
== END 2018-11-25 14:17 | disposition short-term general hospital (02) | DRG 190 ==
LOC: ED 04:56 → ICU 08:29
PROVIDERS: ADMIT Internal Medicine; ATTEND Internal Medicine

== ENCOUNTER 2019-03-16 04:57 | Inpatient (IN) ==
[2019-03-16] MEDS ORDERED: CLINDAMYCIN 150 MG CAPSULE PO ONE (05:54)
[2019-03-16] MEDS ORDERED: 0.9 % SODIUM CHLORIDE 500 ML IV ONE ×2 (05:54→19:04)
[2019-03-16] MEDS ORDERED: AZITHROMYCIN 500 MG in DEXTROSE 5% IN WATER 250 ML IV ONE (05:54)
[2019-03-16] MEDS ORDERED: cefTRIAXone 1 GM in DEXTROSE 5% IN WATER 50 ML IV ONE (05:54)
--- NOTE | 2019-03-16 06:09 | Emergency Department Note ---
Fever HPI - General Chief Complaint: Fever Stated Complaint: fever Time Seen by Provider: 03/16/19 05:53 Mode of arrival: EMS - History of Present Illness HPI Narrative: Patient sent over from dialysis before his dialysis run secondary to temperature of 100.5 when he checked in for dialysis. He does wear BiPAP at 90. O2 sats were less than 90%. MD complaint: fever - Related Data Home Medications Medication Instructions Recorded Confirmed aspirin 81 mg tablet,delayed 81 mg PO QDAY tab 02/10/15 11/24/18 release insulin U- 100 regular human 100 See Dose Instructions SUB-Q 02/10/15 11/24/18 unit/mL injection solution .COMPLEX ml insulin glargine (U- 100) 100 55 unit SUB-Q BID ml 01/03/16 11/24/18 unit/mL subcutaneous solution prednisoLONE 1% OPHTH DROPS [Pred 1 gtt OD DAILY 08/22/16 11/24/18 [place]e Ophth Drops] amLODIPine [Norvasc] 2.5 mg PO DAILY 05/24/17 11/24/18 cyanocobalamin (vit B-12) 1,000 1,000 mcg PO QDAY 10/18/17 11/24/18 mcg tablet lubiprostone 24 mcg capsule 24 mcg PO QDAY PRN cap 10/18/17 11/24/18 minocycline 50 mg capsule 50 mg PO BID cap 10/18/17 11/24/18 DULoxetine HCL [Cymbalta] 60 mg PO DAILY 11/24/18 11/24/18 Furosemide [Lasix] 160 mg PO BID 11/24/18 11/24/18 Gabapentin [Neurontin] 100 mg PO QDAY 11/24/18 11/24/18 Gabapentin [Neurontin] 200 mg PO HS 11/24/18 11/24/18 Latanoprost/Pf [Latanoprost 0.005% 1 drp OU DAILY 11/24/18 11/24/18 Eye Drop] Pramipexole [Mirapex] 0.125 mg PO HS 11/24/18 11/24/18 Pramipexole [Mirapex] 0.25 mg PO HS 11/24/18 11/24/18 Ranitidine HCl [Heartburn Relief] 150 mg PO BID 11/24/18 11/24/18 Sevelamer HCl [Renagel] 800 mg PO TID 11/24/18 11/24/18 oxyCODONE HCL [Oxycodone HCl] 1 - 2 tab PO Q6 PRN 11/24/18 11/24/18 Previous Rx's Medication Instructions Recorded calcium acetate 667 mg tablet 667 mg PO TID #90 tab 05/15/18 vitamin B complex-vitamin C 100 1 tab PO QDAY #90 tab 07/21/18 mg-folic acid 1 mg tablet allopurinol 100 mg tablet 50 mg PO QDAY 90 Days #45 tab 10/21/18 losartan 50 mg tablet 50 mg PO QDAY #90 tab 10/21/18 rosuvastatin 10 mg tablet 10 mg PO QDAY #30 tab 10/21/18 vitamin B complex-vitamin C-folic 1 tab PO QDAY #30 tab 02/16/19 acid 0.8 mg tablet Allergies Allergy/AdvReac Type Severity Reaction Status Date / Time iron [IRON] Allergy Severe Anaphylaxis Verified 11/19/16 10:55 acetaminophen [From [place]] Allergy Mild Hives Verified 11/19/16 10:55 hydrocodone [From [place]] Allergy Mild Hives Verified 11/19/16 10:55 exenatide [From [place]] Allergy Unknown Unknown Verified 11/19/16 10:55 lisinopril AdvReac Mild Cough Verified 11/24/18 09:25 Review of Systems All systems ED: reviewed and negative except as stated. Constitutional: Reports: fever, chills, sweats, other (shaking chills this morning and.) ENT ED: Denies: ear pain Cardiovascular: Denies: chest pain Respiratory: Reports: shortness of breath, cough, wheezes Gastrointestinal: Denies: abdominal pain, nausea, vomiting, diarrhea, constipation Genitourinary: Denies: dysuria, frequency, urgency Musculoskeletal: Denies: back pain Neurological: Reports: weakness Endocrine: Reports: fatigue Fever PMH - Past Medical History Medical history: Reports: arthritis, COPD, DM, hyperlipidemia, hypertension, ob esity, renal disease Reports: Decubitus Ulcers, Cellulitis, Other (history of osteomyelitis) Surgical history ED: Reports: orthopedic, other, other (status post BKA amputation right leg) Family history: Reports: non-contributory - Social History smoking status: Current every day smoker Alcohol use: Reports: Occasionally Drug use: Reports: none Physical Exam General appearance: alert, in distress Head: atraumatic, normocephalic Eye: Present: normal appearance, EOMI ENT: normal exam, normal oropharynx, mucous membranes moist, TM's normal bila terally, normal external ear exam Neck: Present: normal inspection, full ROM, trachea midline. Absent: tenderness, meningismus, lymphadenopathy Chest: Present: normal inspection, symmetric chest wall rise. Absent: tenderness Respiratory: Present: respiratory distress, rales/crackles, wheezes Cardiovascular: Present: regular rate, normal rhythm, tachycardia, normal heart sounds Abdominal: Present: soft, normal bowel sounds. Absent: distention, tenderness, guarding, rebound : Present: normal inspection Extremities: Present: normal inspection, other (status post BKA on the right leg without ulcerations.) Back: Absent: CVA tenderness (R), CVA tenderness (L) Neurological: Present: alert, oriented X3, CN II-XII intact Psychiatric: Present: normal affect Skin: Present: warm, diaphoretic, normal color Course Vital Signs Temperature 99.5 F H 03/16/19 04:58 Pulse Rate 91 H 03/16/19 04:58 Respiratory Rate 18 03/16/19 04:58 Blood Pressure 130/76 03/16/19 04:58 Pulse Oximetry (%) 83 L 03/16/19 04:58 Temperature 100.8 F H 03/16/19 06:09 Pulse Rate 78 03/16/19 07:32 Respiratory Rate 18 03/16/19 04:58 Blood Pressure 112/70 03/16/19 07:32 Pulse Oximetry (%) 93 03/16/19 07:32 Fever - MDM Narrative Medical decision making narrative: Patient started on IV antibiotics. Given clindamycin as he does have a risk factors for aspiration in. He is scheduled to have a barium swallow study done this week to evaluate his esophagus. He might be chronically aspirating, pneumonia is right-sided which would also favor aspiration in. It does however have risk factors i.e. smoking one half pack a day. He was started on nebulizer treatments. It is not particularly wheezy thus the steroids not indicated at this time. His potassium came back elevated thus we gave him some calcium in. I discussed hospitalization with the store group manager and Dr. Ferris - Lab Data Lab results reviewed: Yes I reviewed the patient's lab results. Result diagrams: 03/16/19 06:28 03/16/19 06:27 Lab Results 03/16/19 03/16/19 03/16/19 Range/Units 06:27 06:27 06:28 WBC 19.4 H (4.5-11.0) K/mcL RBC 3.47 L (4.50-5.90) M/mcL Hgb 9.7 L (13.5-16.5) g/dL Hct 29.3 L (41.0-55.0) % MCV 84.5 (80.0-100.0) fL MCH 27.9 (26.0-34.0) pg MCHC 33.1 (31.0-36.0) g/dL RDW 16.0 H (11.5-14.5) % Plt Count 296 (140-440) K/mcL MPV 8.0 (7.4-10.4) fL Gran % 92.6 H (38.0-78.0) % Lymph % (Auto) 2.9 L (15.5-49.0) % [place] % (Auto) 3.0 (1.0-12.0) % Eos % (Auto) 0.9 (0.0-7.0) % Baso % (Auto) 0.6 (0.0-2.0) % Gran # 17.9 H (1.8-8.0) K/mcL Lymph # (Auto) 0.6 L (1.5-4.8) K/mcL [place] # (Auto) 0.6 (0.1-0.9) K/mcL Eos # (Auto) 0.2 (0.0-0.7) K/mcL Baso # (Auto) 0.1 (0.0-0.3) K/mcL VBG Lactic Acid (0.5-2.0) mmol/L Sodium 134 (133-145) mmol/L Potassium 6.1 H* (3.3-5.1) mmol/L Chloride 94 L (96-108) mmol/L Carbon Dioxide 24 (22-30) mmol/L Anion Gap 16.0 (8-16) BUN 58 H (8-23) mg/dl Creatinine 8.0 H* (0.7-1.2) mg/dl GFR Calculation 6 Glucose 160 H (70-105) mg/dL Calcium 7.8 L (8.6-10.4) mg/dl Total Bilirubin 0.3 (0.0-1.0) mg/dL AST 19 (0-37) U/l ALT 18 (0-40) U/l Alkaline Phosphatase 108 (39-117) U/L C-Reactive Protein 6.2 H (0.0-0.8) mg/dl Total Protein 6.5 (5.9-8.4) gm/dL Albumin 3.3 (3.2-5.2) gm/dL Globulin 3.2 (2.2-3.7) gm/dL Albumin/Globulin Ratio 1.0 (1.0-2.3) Procalcitonin 0.74 (<0.10) ng/mL 03/16/19 Range/Units 06:28 WBC (4.5-11.0) K/mcL RBC (4.50-5.90) M/mcL Hgb (13.5-16.5) g/dL Hct (41.0-55.0) % MCV (80.0-100.0) fL MCH (26.0-34.0) pg MCHC (31.0-36.0) g/dL RDW (11.5-14.5) % Plt Count (140-440) K/mcL MPV (7.4-10.4) fL Gran % (38.0-78.0) % Lymph % (Auto) (15.5-49.0) % [place] % (Auto) (1.0-12.0) % Eos % (Auto) (0.0-7.0) % Baso % (Auto) (0.0-2.0) % Gran # (1.8-8.0) K/mcL Lymph # (Auto) (1.5-4.8) K/mcL [place] # (Auto) (0.1-0.9) K/mcL Eos # (Auto) (0.0-0.7) K/mcL Baso # (Auto) (0.0-0.3) K/mcL VBG Lactic Acid 1.2 (0.5-2.0) mmol/L Sodium (133-145) mmol/L Potassium (3.3-5.1) mmol/L Chloride (96-108) mmol/L Carbon Dioxide (22-30) mmol/L Anion Gap (8-16) BUN (8-23) mg/dl Creatinine (0.7-1.2) mg/dl GFR Calculation Glucose (70-105) mg/dL Calcium (8.6-10.4) mg/dl Total Bilirubin (0.0-1.0) mg/dL AST (0-37) U/l ALT (0-40) U/l Alkaline Phosphatase (39-117) U/L C-Reactive Protein (0.0-0.8) mg/dl Total Protein (5.9-8.4) gm/dL Albumin (3.2-5.2) gm/dL Globulin (2.2-3.7) gm/dL Albumin/Globulin Ratio (1.0-2.3) Procalcitonin (<0.10) ng/mL Disposition Pt seen by GLASS GLAZIER/PA only: No Clinical Impression: Pneumonia, Diabetes mellitus type 2 in obese, Anemia in chronic kidney disease, Gastroesophageal reflux, Congestive heart failure Disposition: Xfer As Inpt ([facility]) Condition: Fair
[2019-03-16] MEDS ORDERED: IPRATROPIUM/ALBUTEROL 3 ML AMPUL.NEB NEB ONE (06:13)
[2019-03-16 07:08] LABS: Basophils # (Auto) 0.1 K/mcL (0.0-0.3); Basophils % (Auto) 0.6 % (0.0-2.0); Eosinophils # (Auto) 0.2 K/mcL (0.0-0.7); Eosinophils % (Auto) 0.9 % (0.0-7.0); Granulocytes % (Auto) 92.6 % (38.0-78.0); Hematocrit 29.3 % (41.0-55.0); Hemoglobin 9.7 g/dL (13.5-16.5); Lymphocytes # (Auto) 0.6 K/mcL (1.5-4.8); Lymphocytes % (Auto) 2.9 % (15.5-49.0); Mean Cell Volume 84.5 fL (80.0-100.0); Mean Corpuscular HGB Conc 33.1 g/dL (31.0-36.0); Monocytes # (Auto) 0.6 K/mcL (0.1-0.9); Platelet Count 296 K/mcL (140-440); RBC 3.47 M/mcL (4.50-5.90); WBC 19.4 K/mcL (4.5-11.0)
[2019-03-16 07:28] LABS: ALT/SGPT 18 U/l (0-40); AST/SGOT 19 U/l (0-37); Albumin 3.3 gm/dL (3.2-5.2); Alkaline Phosphatase 108 U/L (39-117); Bilirubin,Total 0.3 mg/dL (0.0-1.0); Blood Urea Nitrogen 58 mg/dl (8-23); C-Reactive Protein 6.2 mg/dl (0.0-0.8); Calcium 7.8 mg/dl (8.6-10.4); Carbon Dioxide 24 mmol/L (22-30); Chloride 94 mmol/L (96-108); Globulin 3.2 gm/dL (2.2-3.7); Glomerular Filtration Rate 6; Glucose 160 mg/dL (70-105)
[2019-03-16] MEDS ORDERED: CALCIUM GLUCONATE 7 MEQ in DEXTROSE 5% IN WATER 50 ML IV ONE (07:50)
[2019-03-16] MEDS ORDERED: PANTOPRAZOLE 40 MG VIAL IV ONE (07:54)
--- NOTE | 2019-03-16 08:23 | XRay Report ---
HISTORY: Pneumonia and fever FINDINGS: There are patchy alveolar infiltrates throughout both lungs, right worse than left. There is mild elevation of the right diaphragm. The heart is mildly enlarged but magnified by portable technique. The patient has had prior coronary bypass surgery. Pulmonary vessels cannot be evaluated due to the infiltrates. No pleural effusion is present. Comparison with the prior exam from 11/25/18 shows the pneumonia is less severe today than it was previously. IMPRESSION: Moderate bilateral pneumonia Interpreted and Authenticated by: Charles Viera 03/16/19
--- NOTE | 2019-03-16 08:27 | Internal Med History&Physical ---
Medical - H&P: HPI Patient information: Note initiated : 03/16/19 at 8:21 am Service Date, if different from initiated Date: [] Patient: Delonte Gutierres a 63 y/o M admitted on for Fever. Chief Complaint: [] History of present illness: Mr. Gutierres is a 63 year old M with multiple medical issues, presents to the emergency room today from dialysis unit for evaluation of fever. The patient did not have dialysis. The patient woke up at around 3 AM this morning for his regular dialysis session, his noticed that he had a low-grade temperature and given some aspirin. He showed up to the dialysis center and they noted that he had a fever, and they sent him to the emergency room for evaluation. The patient admits to having some chronic cough that has been bothering him for the last 2 months, he has some difficulty in swallowing and notes that food does get stuck in his esophagus, he does have some nausea and reflux disease secondary to this. He has scheduled GI follow-up for further evaluation of this issue. The patient has no chest pain, nonproductive cough, does have some shortness of breath, but no wheezing. He has nausea secondary to his GI issues no vomiting no abdominal pain no bowel bladder complaints. No new joint pains, he does have chronic wounds and scabs all over his body, he does have a wound on his left hand which he believes is new, denies any acute trauma to that hand. No evidence of infection there.The patient has chronic eye issues, I believe diabetic retinopathy and is followed by ophthalmology for same. On presenting to the emergency room he had a low-grade temperature 99.5, 100.51 rectal, heart rate around 90 blood pressure 130/76 saturating 83% on room air. He uses BiPAP at night otherwise no oxygen needs. Labs showed a white count of 19,400 hemoglobin 9.7 platelets 96 lactic acid 1.2 chemistry relevant for potassium of 6.1 bicarb of 24 creatinine of 8 glucose 160 procalcitonin 0.74 chest x-ray shows pneumonia predominantly on the right side but there are some infiltrates on the left official read is pending Patient is given Rocephin azithromycin and clindamycin in the emergency room, and admitted to the hospital for further management nephrology has been consulted from the emergency room Blood cultures were not drawn prior to antibiotic administration All systems: reviewed and no additional remarkable complaints except as stated (as per HPI rest negative) Medical - H&P: PMH Medical history: Medical History Cardiac arrest (Acute) Respiratory failure (Acute) Congestive heart failure (Acute) Fluid overload (Acute) Acute decompensated heart failure (Acute) Cellulitis of toe (Acute) Hypoxia (Acute) Acute respiratory failure (Acute) Pulmonary edema with congestive heart failure (Acute) Acute respiratory failure with hypoxia (Acute) Anemia (Chronic) Upper respiratory tract infection (Chronic) Hypertensive renal disease with renal failure (Chronic) Hypertensive renal disease (Chronic) Edema (Chronic) Diabetes mellitus type 2 in obese (Chronic) Chronic kidney disease, stage IV (severe) (Chronic) Vitamin D deficiency (Acute) Tobacco abuse (Acute) Testosterone deficiency (Acute) Sleep apnea (Chronic) Secondary hyperparathyroidism of renal origin (Chronic 08/12/13) Proteinuria (Chronic) Peripheral neuropathy (Acute) Peptic ulcer disease (Acute) Osteoarthritis, knee (Acute) Obesity (Acute) Muscle cramps (Acute 03/07/14) [facility] current use of insulin (Acute) Hypertension, essential (Acute) Hyperlipemia (Acute) Hyperkalemia (Acute 07/12/14) HTN (hypertension) (Chronic) Gastroesophageal reflux (Acute) Erectile dysfunction (Acute) Diabetic nephropathy (Acute) Diabetes mellitus type II, uncontrolled (Chronic) Osteoarthrosis (Acute) Congestive heart failure (Acute) Colon polyps (Acute) Chronic obstructive pulmonary disease (Acute) Chronic kidney disease, stage II (mild) (Acute) CAD (coronary artery disease) (Acute) Back pain (Acute) Anemia in chronic kidney disease (Chronic 08/12/13) Surgical history: Past Surgical History History of arthroscopic knee surgery (Acute) History of cataract surgery (Chronic) Pertinent family history: Family History Sister Diabetes mellitus Father Acute myocardial infarction, Onset Age: 52 Mother Obesity Medical - H&P: Meds Home Medications Medication Instructions Recorded Confirmed Type aspirin 81 mg tablet,delayed 81 mg PO QDAY tab 02/10/15 11/24/18 History release insulin U- 100 regular human 100 See Dose Instructions SUB-Q 02/10/15 11/24/18 History unit/mL injection solution .COMPLEX ml insulin glargine (U- 100) 100 55 unit SUB-Q BID ml 01/03/16 11/24/18 History unit/mL subcutaneous solution prednisoLONE 1% OPHTH DROPS [Pred 1 gtt OD DAILY 08/22/16 11/24/18 History Forte Ophth Drops] amLODIPine [Norvasc] 2.5 mg PO DAILY 05/24/17 11/24/18 History cyanocobalamin (vit B-12) 1,000 1,000 mcg PO QDAY 10/18/17 11/24/18 History mcg tablet lubiprostone 24 mcg capsule 24 mcg PO QDAY PRN cap 10/18/17 11/24/18 History minocycline 50 mg capsule 50 mg PO BID cap 10/18/17 11/24/18 History calcium acetate 667 mg tablet 667 mg PO TID #90 tab 05/15/18 11/24/18 Rx vitamin B complex-vitamin C 100 1 tab PO QDAY #90 tab 07/21/18 11/24/18 Rx mg-folic acid 1 mg tablet allopurinol 100 mg tablet 50 mg PO QDAY 90 Days #45 tab 10/21/18 11/24/18 Rx losartan 50 mg tablet 50 mg PO QDAY #90 tab 10/21/18 11/24/18 Rx rosuvastatin 10 mg tablet 10 mg PO QDAY #30 tab 10/21/18 11/24/18 Rx DULoxetine HCL [Cymbalta] 60 mg PO DAILY 11/24/18 11/24/18 History Furosemide [Lasix] 160 mg PO BID 11/24/18 11/24/18 History Gabapentin [Neurontin] 100 mg PO QDAY 11/24/18 11/24/18 History Gabapentin [Neurontin] 200 mg PO HS 11/24/18 11/24/18 History Latanoprost/Pf [Latanoprost 0.005% 1 drp OU DAILY 11/24/18 11/24/18 History Eye Drop] Pramipexole [Mirapex] 0.125 mg PO HS 11/24/18 11/24/18 History Pramipexole [Mirapex] 0.25 mg PO HS 11/24/18 11/24/18 History Ranitidine HCl [Heartburn Relief] 150 mg PO BID 11/24/18 11/24/18 History Sevelamer HCl [Renagel] 800 mg PO TID 11/24/18 11/24/18 History oxyCODONE HCL [Oxycodone HCl] 1 - 2 tab PO Q6 PRN 11/24/18 11/24/18 History vitamin B complex-vitamin C-folic 1 tab PO QDAY #30 tab 02/16/19 Rx acid 0.8 mg tablet Allergies Allergy/AdvReac Type Severity Reaction Status Date / Time iron [IRON] Allergy Severe Anaphylaxis Verified 11/19/16 10:55 acetaminophen [From [place]] Allergy Mild Hives Verified 11/19/16 10:55 hydrocodone [From [place]] Allergy Mild Hives Verified 11/19/16 10:55 exenatide [From [place]] Allergy Unknown Unknown Verified 11/19/16 10:55 lisinopril AdvReac Mild Cough Verified 11/24/18 09:25 Medical - H&P: Exam - Constitutional Vitals: Temp Pulse Resp BP Pulse Ox 100.8 F H 84 18 102/83 90 03/16/19 06:09 03/16/19 07:47 03/16/19 04:58 03/16/19 08:02 03/16/19 07:47 Exam: GENERAL: The patient is a well-developed, well-nourished in no apparent distress. Is alert and oriented x3. VITAL SIGNS: Reviewed and as noted elsewhere. HEENT: Head is normocephalic and atraumatic. Extraocular muscles are intact. Pupils are equal, oval bilaterally (post procedure), and reactive to light. Nares appeared normal. Mouth appears any without lesions. Mucous membranes are dry NECK: Normal to inspection, Supple, No lymphadenopathy or thyromegaly. LUNGS: Air entry equal on both sides, no wheezing, crackles or rhonchi noted. No accessory muscles of respiration HEART: Regular rate and rhythm normal, S1 and S2 heard, no Gallop, S3 or Rub Noted, systolic murmur, tricuspid,mitral region. ABDOMEN: Soft, nontender, and nondistended. Positive bowel sounds. No hepatosplenomegaly was noted. large panns EXTREMITIES: No cyanosis, clubbing, rash, lesions or edema. Rigth bka, multiple ulcerative lesions on left little finger. no e/o acute infection NEUROLOGIC: Cranial nerves II through XII are grossly intact. Motor and Sensory System Grossly Intact PSYCHIATRIC: Normal affect, Normal Mood. Appropriate Behavior. SKIN: No ulceration or wounds noted, No jaundice, Medical - H&P: Reslt - Labs CBC & Chem 7: 03/16/19 06:28 03/16/19 06:27 Labs: Short CBC 03/16/19 Range/Units 06:28 WBC 19.4 H (4.5-11.0) K/mcL Hgb 9.7 L (13.5-16.5) g/dL Hct 29.3 L (41.0-55.0) % Plt Count 296 (140-440) K/mcL BMP 03/16/19 06:27 Sodium 134 Potassium 6.1 H* Chloride 94 L Carbon Dioxide 24 BUN 58 H Creatinine 8.0 H* Glucose 160 H Calcium 7.8 L Liver Function 03/16/19 Range/Units 06:27 Total Bilirubin 0.3 (0.0-1.0) mg/dL AST 19 (0-37) U/l ALT 18 (0-40) U/l Alkaline Phosphatase 108 (39-117) U/L Albumin 3.3 (3.2-5.2) gm/dL Medical - H&P: A/P - Narrative A/P Narrative: A/P Acute hypoxic Respiratory Failure Health care associated Pneumonia DM with vascular complications Diabetic Retinopathy S/p BKA Skin wounds Diabetic Retinopathy HTN ESRD on HD HLD CAD s/p CABG Mitral Valve replacement Chronic Anticoagulation Sepsis, per SIRS criteria Hyperkalemia Chronic Gout Chronic wounds Plan Admit to Tele nephrology consulted for HD, IV vanco, zosyn, Zithromax for HCAP pna, blood and sputum cx, deescalate abx per microbiology results SSI insulin for glucose control Resume home meds once appropriate hold bp meds x 24 hrs till bp is stable Resume cardiac meds check inr, Coumadin management per pharmacy cover wounds with guaze, topical bacitracin DVT on coumadin Full code Cardiac, renal, carb consistent diet. 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
[2019-03-16 08:59] LABS: INR 3.1 (0.9-1.1); Prothrombin Time 31.2 sec (11.9-14.5)
--- NOTE | 2019-03-16 09:00 | Nephrology Consult Note ---
History of Present Illness - Reason for Consult Patient information: Note initiated : 03/16/19 at 8:58 am Patient: Delonte Gutierres 63 y/o M admitted on for Fever. Chief Complaint: Fever Consult date: 03/16/19 end stage renal disease, hyperkalemia Requesting physician: Sridevi Ferris - Chief Complaint Fever - History of Present Illness Delonte Gutierres is a 63-year-old male with end-stage renal disease on chronic hemodialysis (at [facility], on MWF), referred to ED this morning for fever. He was diagnosed with pneumonia and being admitted. He reported chronic cough some difficulty in swallowing for the past 2 months. Review of Systems Constitutional: fever(s), lethargy Nose, mouth and throat: no nasal congestion, no sore throat Cardiovascular: no chest pain, no palpatations Respiratory: cough, dyspnea Gastrointestinal: no nausea, no vomiting Genitourinary: no dysuria, no hematuria Musculoskeletal: deformity, no joint swelling Integumentary: no rash, no wounds Neurological: no confusion, no focal weakness Psychiatric: no anxiety, no panic attacks Endocrine: no cold intolerance, no heat intolerance Hematologic/Lymphatic: no easy bleeding, no easy bruising Allergic/Immunologic: no tongue swelling, no uticaria Past History Past medical history: Medical History Cardiac arrest (Acute) Respiratory failure (Acute) Congestive heart failure (Acute) Fluid overload (Acute) Acute decompensated heart failure (Acute) Cellulitis of toe (Acute) Hypoxia (Acute) Acute respiratory failure (Acute) Pulmonary edema with congestive heart failure (Acute) Acute respiratory failure with hypoxia (Acute) Anemia (Chronic) Upper respiratory tract infection (Chronic) Hypertensive renal disease with renal failure (Chronic) Hypertensive renal disease (Chronic) Edema (Chronic) Diabetes mellitus type 2 in obese (Chronic) Chronic kidney disease, stage IV (severe) (Chronic) Vitamin D deficiency (Acute) Tobacco abuse (Acute) Testosterone deficiency (Acute) Sleep apnea (Chronic) Secondary hyperparathyroidism of renal origin (Chronic 08/12/13) Proteinuria (Chronic) Peripheral neuropathy (Acute) Peptic ulcer disease (Acute) Osteoarthritis, knee (Acute) Obesity (Acute) Muscle cramps (Acute 03/07/14) 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 (Acute) Hypertension, essential (Acute) Hyperlipemia (Acute) Hyperkalemia (Acute 07/12/14) HTN (hypertension) (Chronic) Gastroesophageal reflux (Acute) Erectile dysfunction (Acute) Diabetic nephropathy (Acute) Diabetes mellitus type II, uncontrolled (Chronic) Osteoarthrosis (Acute) Congestive heart failure (Acute) Colon polyps (Acute) Chronic obstructive pulmonary disease (Acute) Chronic kidney disease, stage II (mild) (Acute) CAD (coronary artery disease) (Acute) Back pain (Acute) Anemia in chronic kidney disease (Chronic 08/12/13) Past surgical history: Past Surgical History History of arthroscopic knee surgery (Acute) History of cataract surgery (Chronic) Past family history: Family History Sister Diabetes mellitus Father Acute myocardial infarction, Onset Age: 52 Mother Obesity Medications and Allergies Home Medications Medication Instructions Recorded Confirmed Type aspirin 81 mg tablet,delayed 81 mg PO QDAY tab 02/10/15 11/24/18 History release insulin U- 100 regular human 100 See Dose Instructions SUB-Q 02/10/15 11/24/18 History unit/mL injection solution .COMPLEX ml insulin glargine (U- 100) 100 55 unit SUB-Q BID ml 01/03/16 11/24/18 History unit/mL subcutaneous solution prednisoLONE 1% OPHTH DROPS [Pred 1 gtt OD DAILY 08/22/16 11/24/18 History Forte Ophth Drops] amLODIPine [Norvasc] 2.5 mg PO DAILY 05/24/17 11/24/18 History cyanocobalamin (vit B-12) 1,000 1,000 mcg PO QDAY 10/18/17 11/24/18 History mcg tablet lubiprostone 24 mcg capsule 24 mcg PO QDAY PRN cap 10/18/17 11/24/18 History minocycline 50 mg capsule 50 mg PO BID cap 10/18/17 11/24/18 History calcium acetate 667 mg tablet 667 mg PO TID #90 tab 05/15/18 11/24/18 Rx vitamin B complex-vitamin C 100 1 tab PO QDAY #90 tab 07/21/18 11/24/18 Rx mg-folic acid 1 mg tablet allopurinol 100 mg tablet 50 mg PO QDAY 90 Days #45 tab 10/21/18 11/24/18 Rx losartan 50 mg tablet 50 mg PO QDAY #90 tab 10/21/18 11/24/18 Rx rosuvastatin 10 mg tablet 10 mg PO QDAY #30 tab 10/21/18 11/24/18 Rx DULoxetine HCL [Cymbalta] 60 mg PO DAILY 11/24/18 11/24/18 History Furosemide [Lasix] 160 mg PO BID 11/24/18 11/24/18 History Gabapentin [Neurontin] 100 mg PO QDAY 11/24/18 11/24/18 History Gabapentin [Neurontin] 200 mg PO HS 11/24/18 11/24/18 History Latanoprost/Pf [Latanoprost 0.005% 1 drp OU DAILY 11/24/18 11/24/18 History Eye Drop] Pramipexole [Mirapex] 0.125 mg PO HS 11/24/18 11/24/18 History Pramipexole [Mirapex] 0.25 mg PO HS 11/24/18 11/24/18 History Ranitidine HCl [Heartburn Relief] 150 mg PO BID 11/24/18 11/24/18 History Sevelamer HCl [Renagel] 800 mg PO TID 11/24/18 11/24/18 History oxyCODONE HCL [Oxycodone HCl] 1 - 2 tab PO Q6 PRN 11/24/18 11/24/18 History vitamin B complex-vitamin C-folic 1 tab PO QDAY #30 tab 02/16/19 Rx acid 0.8 mg tablet Allergies Allergy/AdvReac Type Severity Reaction Status Date / Time iron [IRON] Allergy Severe Anaphylaxis Verified 11/19/16 10:55 acetaminophen [From Jones] Allergy Mild Hives Verified 11/19/16 10:55 hydrocodone [From [facility]] Allergy Mild Hives Verified 11/19/16 10:55 exenatide [From [place]] Allergy Unknown Unknown Verified 11/19/16 10:55 lisinopril AdvReac Mild Cough Verified 11/24/18 09:25 Exam - Vital Signs Vital signs: Temp Pulse Resp BP Pulse Ox 100.8 F H 84 18 111/68 90 03/16/19 06:09 03/16/19 07:47 03/16/19 04:58 03/16/19 08:31 03/16/19 07:47 - General Appearance General appearance: chronically ill, fatigue EENT: mucous membranes moist Neck: supple Respiratory: rales Cardiology: edema Gastrointestinal: no tenderness Integumentary: warm and dry Neurologic: no focal deficit, alert and oriented x3 Musculoskeletal: deformities Psychiatric: mood/affect appropriate, cooperative Results - Lab Results 03/16/19 06:28 03/16/19 06:27 Most recent lab results Calcium 7.8 mg/dl (8.6-10.4) L 03/16/19 06:27 Assessment and Plan (1) ESRD (end stage renal disease) on dialysis Delonte Gutierres is a 63-year-old male with end-stage renal disease on chronic hemodialysis (at [facility], on MWF), referred to ED this morning for fever. He was diagnosed with pneumonia and being admitted. End-stage renal disease on chronic hemodialysis, last dialysis on 03/13/19. Hyperkalemia. Fluid overload. Chronic anemia due to ESRD. Plan: Hemodialysis today for 4 hours, QB/QD 400/800, dialysate (Potassium 2, Bicarbonate 30, Calcium 2.5, Sodium 138), UF target 4000 ml, Heparin 1000 unit bolus, 500 unit per hour. Status: Chronic Priority: Medium (2) Hyperkalemia Please see above Status: Acute Priority: High (3) Fluid overload Please see above Status: Chronic Priority: Medium (4) Anemia due to end stage renal disease Please see above Status: Chronic Priority: Medium
[2019-03-16] MEDS ORDERED: VANCOMYCIN PER PHARMACY IV SCH (09:37)
[2019-03-16] MEDS ORDERED: ACETAMINOPHEN 325 MG TABLET PO PRN (09:37)
[2019-03-16] MEDS ORDERED: PIPERACILLIN SODIUM/TAZOBACTAM 4.5 GM in DEXTROSE 5% IN WATER 50 ML IV ONE (09:37)
[2019-03-16] MEDS ORDERED: ONDANSETRON 4 MG/2 ML VIAL IV PRN (09:37)
[2019-03-16] MEDS ORDERED: NALOXONE HCL 0.4 MG/ML VIAL IV PRN (09:37)
[2019-03-16] MEDS ORDERED: DEXTROSE 50% 50 ML VIAL IV PRN (09:37)
[2019-03-16] MEDS ORDERED: DEXTROSE 31 GM ORAL.SUSP PO PRN (09:37)
[2019-03-16] MEDS ORDERED: VANCOMYCIN 1,500 MG in 0.9 % SODIUM CHLORIDE 500 ML IV ONE ×2 (10:00→20:00)
[2019-03-16] MEDS: INSULIN LISPRO 1 UNIT/0.01 ML UNIT SQ SCH ×3 (12:03→20:52)
[2019-03-16] MEDS ORDERED: ESOMEPRAZOLE 40 MG VIAL IV ONE (12:15)
[2019-03-16] MEDS: IPRATROPIUM/ALBUTEROL 3 ML AMPUL.NEB NEB SCH ×2 (13:16→18:54)
[2019-03-16] MEDS: PIPERACILLIN SODIUM/TAZOBACTAM 2.25 GM in DEXTROSE 5% IN WATER 50 ML IV SCH ×2 (16:45→20:53)
[2019-03-16] MEDS: 0.9 % SODIUM CHLORIDE 10 ML SYRINGE IV SCH ×2 (17:15→20:53)
[2019-03-16] MEDS ORDERED: HYDROmorphone 2 MG TABLET ONE (20:28)
[2019-03-16] MEDS: HYDROmorphone 2 MG TABLET PO PRN (20:30)
[2019-03-16] MEDS: FUROSEMIDE 80 MG TABLET PO SCH (20:52)
[2019-03-16] MEDS: ATORVASTATIN 20 MG TABLET PO SCH (20:52)
[2019-03-16] MEDS: TIMOLOL 0.5% OPHTH DROPS BOTTLE 5ML OD SCH (20:53)
[2019-03-16] MEDS: EYE OU SCH (20:53)
[2019-03-16] MEDS: LATANOPROST 0.005% OU SCH (20:53)
[2019-03-16] MEDS ORDERED: ROSUVASTATIN 10 MG TABLET PO SCH (21:00)
[2019-03-16] MEDS ORDERED: INSULIN GLARGINE, HUMAN 1 UNIT/0.01 ML SQ SCH (21:00)
[2019-03-16] MEDS: PRAMIPEXOLE 0.25 MG TABLET PO SCH (21:12)
[2019-03-17] MEDS: HYDROmorphone 2 MG TABLET PO PRN ×3 (00:38→20:57)
[2019-03-17] MEDS: IPRATROPIUM/ALBUTEROL 3 ML AMPUL.NEB NEB SCH ×4 (00:38→18:33)
[2019-03-17] MEDS: PIPERACILLIN SODIUM/TAZOBACTAM 2.25 GM in DEXTROSE 5% IN WATER 50 ML IV SCH (05:42)
[2019-03-17] MEDS: 0.9 % SODIUM CHLORIDE 10 ML SYRINGE IV SCH ×3 (05:42→21:00)
[2019-03-17 06:45] LABS: Basophils # (Auto) 0.1 K/mcL (0.0-0.3); Basophils % (Auto) 0.5 % (0.0-2.0); Eosinophils # (Auto) 0.1 K/mcL (0.0-0.7); Eosinophils % (Auto) 1.3 % (0.0-7.0); Granulocytes % (Auto) 83.7 % (38.0-78.0); Hematocrit 26.7 % (41.0-55.0); Hemoglobin 8.6 g/dL (13.5-16.5); INR 3.1 (0.9-1.1); Lymphocytes # (Auto) 0.8 K/mcL (1.5-4.8); Lymphocytes % (Auto) 7.7 % (15.5-49.0); Mean Cell Volume 87.2 fL (80.0-100.0); Mean Corpuscular HGB Conc 32.1 g/dL (31.0-36.0); Mean Platelet Volume 7.9 fL (7.4-10.4); Monocytes # (Auto) 0.7 K/mcL (0.1-0.9); Monocytes % (Auto) 6.8 % (1.0-12.0); Platelet Count 251 K/mcL (140-440); Prothrombin Time 31.8 sec (11.9-14.5); RBC 3.06 M/mcL (4.50-5.90); Red Cell Distribution Width 17.4 % (11.5-14.5); WBC 10.7 K/mcL (4.5-11.0)
[2019-03-17 06:53] LABS: ALT/SGPT 17 U/l (0-40); AST/SGOT 14 U/l (0-37); Albumin 2.8 gm/dL (3.2-5.2); Albumin/Globulin Ratio 0.9 (1.0-2.3); Alkaline Phosphatase 92 U/L (39-117); Bilirubin,Direct < 0.2 mg/dL (0.0-0.3); Bilirubin,Total 0.3 mg/dL (0.0-1.0); Blood Urea Nitrogen 35 mg/dl (8-23); Calcium 7.3 mg/dl (8.6-10.4); Carbon Dioxide 21 mmol/L (22-30); Chloride 99 mmol/L (96-108); Globulin 3.1 gm/dL (2.2-3.7); Glomerular Filtration Rate 11; Glucose 313 mg/dL (70-105); Lactate Dehydrogenase 238 U/L (94-250); Phosphorous 4.6 mg/dL (2.7-4.5); Triglycerides 110 mg/dl (<150); Uric Acid 3.4 mg/dL (2.5-8.0)
--- NOTE | 2019-03-17 07:06 | Nephrology Progress Note ---
Subjective Patient information: Note initiated : 03/17/19 at 7:03 am Patient: Delonte Gutierres 63 y/o M admitted on 03/16/19 for Fever. Chief Complaint: Fever Pertinent ROS: Weakness Feels better Objective - Vital Signs Vital signs: Vital Signs Temp Pulse Resp BP BP Pulse Ox 03/17/19 04:01 98.1 F 16 116/67 97 03/17/19 00:01 97.8 F 16 115/46 96 03/16/19 20:01 98.2 F 16 124/53 97 03/16/19 20:00 16 97 03/16/19 18:55 84 18 03/16/19 16:50 72 102/50 03/16/19 16:31 97.6 F 16 110/44 100 03/16/19 16:28 106/58 03/16/19 16:25 97.3 F 66 106/58 03/16/19 16:16 111/51 03/16/19 16:10 67 111/51 03/16/19 16:01 108/50 98 03/16/19 15:55 71 108/50 03/16/19 15:51 94/67 03/16/19 15:46 101/20 03/16/19 15:44 95/54 03/16/19 15:40 73 94/67 03/16/19 15:31 80/55 03/16/19 15:29 84/44 03/16/19 15:25 72 84/55 03/16/19 15:16 91/52 98 03/16/19 15:10 72 91/52 03/16/19 15:01 107/52 95 03/16/19 14:55 75 107/52 03/16/19 14:40 77 102/55 03/16/19 14:30 104/53 03/16/19 14:25 73 03/16/19 14:16 102/53 98 03/16/19 14:10 70 102/53 03/16/19 14:01 78 114/61 96 03/16/19 13:55 75 114/61 03/16/19 13:46 77 119/54 95 03/16/19 13:40 68 119/54 03/16/19 13:33 76 118/63 100 03/16/19 13:25 72 118/63 03/16/19 13:19 82 89/61 92 03/16/19 13:16 85 99/59 94 03/16/19 13:15 80 18 94 03/16/19 13:10 71 99/59 03/16/19 13:01 88 119/72 98 03/16/19 12:55 76 119/72 03/16/19 12:46 88 126/69 98 03/16/19 12:40 85 126/66 03/16/19 12:31 80 126/66 97 03/16/19 12:25 81 115/66 03/16/19 12:23 78 115/66 95 03/16/19 12:01 98.2 F 78 18 128/67 98 03/16/19 12:00 98.2 F 81 128/67 03/16/19 11:01 78 126/75 95 03/16/19 10:10 82 133/61 97 03/16/19 09:21 98.1 F 70 18 118/55 87 L 03/16/19 09:00 98.1 F 18 118/55 88 L 03/16/19 08:31 111/68 03/16/19 08:17 98/63 03/16/19 08:13 105/69 03/16/19 08:02 102/83 03/16/19 07:47 84 115/67 90 03/16/19 07:32 78 112/70 93 03/16/19 07:17 84 128/74 92 Intake and Output 03/16/19 03/17/19 03/17/19 21:59 05:59 13:59 Intake Total 600 1630 50 Output Total 250 200 Balance 350 1430 50 Intake: IV 550 550 50 Sodium Chloride 0.9% 500 ml @ 500 Wide Open IV BOLUS ONE Rx#: [id number] Zosyn 2.25 gm In Dextrose 5% in 50 50 50 Water 50 ml @ 100 mls/hr IV Q8H [facility] Rx#:[id number] Vancomycin 1,500 mg In Sodium 500 Chloride 0.9% 500 ml @ 333.3 mls/hr IV ONCE ONE Rx#: [id number] Oral 50 1080 Output: Void Amount 250 200 Other: Meal snack Percent of Meal Consumed 100% Feeding Ability Assist with Tray Set Up Urine Appearance Clear Clear Urine Color Dark Yellow Light Laurita Weight 241 lb 3.2 oz Intake & Output: Intake & Output 03/16/19 03/17/19 03/17/19 21:59 05:59 13:59 Intake Total 600 1630 50 Output Total 250 200 Balance 350 1430 50 Weight 241 lb 3.2 oz Intake: IV 550 550 50 Sodium Chloride 0.9% 500 ml @ 500 Wide Open IV BOLUS ONE Rx#: [id number] Zosyn 2.25 gm In Dextrose 5% in 50 50 50 Water 50 ml @ 100 mls/hr IV Q8H [facility] Rx#:[id number] Vancomycin 1,500 mg In Sodium 500 Chloride 0.9% 500 ml @ 333.3 mls/hr IV ONCE ONE Rx#: [id number] Oral 50 1080 Output: Void Amount 250 200 Other: Meal snack Percent of Meal Consumed 100% Feeding Ability Assist with Tray Set Up Urine Appearance Clear Clear Urine Color Dark Yellow Light Laurita - General Appearance General appearance: chronically ill, fatigue EENT: mucous membranes moist Neck: supple Respiratory: rales Cardiology: edema Gastrointestinal: no tenderness Integumentary: warm and dry Neurologic: no focal deficit, alert and oriented x3 Musculoskeletal: deformities Psychiatric: mood/affect appropriate, cooperative - Lab 03/17/19 03:45 03/17/19 03:45 Most recent lab results Calcium 7.3 mg/dl (8.6-10.4) L 03/17/19 03:45 Phosphorus 4.6 mg/dL (2.7-4.5) H 03/17/19 03:45 Magnesium 2.1 mg/dL (1.6-2.5) 03/17/19 03:45 Assessment and Plan (1) ESRD (end stage renal disease) on dialysis Delonte Gutierres is a 63-year-old male with end-stage renal disease on chronic hemodialysis (at [facility], on MWF), referred to ED from dialysis unit for fever and admitted for sepsis from pneumonia. End-stage renal disease on chronic hemodialysis. Progress: Last dialysis on 03/16/19. Hyperkalemia, persistent. Metabolic acidosis, new. Fluid overload, about 3-4 kg above dry weight. Chronic anemia due to ESRD. Plan: Hemodialysis today for 4 hours, QB/QD 400/800, dialysate (Potassium 2, Bicarbonate 35, Calcium 2.5, Sodium 138), UF target 3000 ml, Heparin 1000 unit bolus, 500 unit per hour. Recommend discontinuation of Spironolactone. Status: Chronic Priority: Medium (2) Hyperkalemia Please see above Status: Acute Priority: High (3) Metabolic acidosis Please see above Status: Acute Priority: High (4) Fluid overload Please see above Status: Chronic Priority: Medium (5) Anemia due to end stage renal disease Please see above Status: Chronic Priority: Medium
[2019-03-17] MEDS: INSULIN LISPRO 1 UNIT/0.01 ML UNIT SQ SCH ×4 (08:26→20:47)
[2019-03-17] MEDS: DULoxetine 30 MG CAPSULE PO SCH (08:26)
[2019-03-17] MEDS: SEVELAMER 800 MG TABLET PO SCH ×3 (08:27→17:58)
[2019-03-17] MEDS: CALCIUM ACETATE 667 MG CAPSULE PO SCH ×3 (08:27→17:58)
[2019-03-17] MEDS: GABAPENTIN 300 MG CAPSULE PO SCH (08:27)
[2019-03-17] MEDS: ALLOPURINOL 100 MG TABLET PO SCH (08:27)
[2019-03-17] MEDS: FOLIC ACID/VITAMIN B COMP W-C 1 TAB TABLET PO SCH (08:27)
[2019-03-17] MEDS: PANTOPRAZOLE 40 MG TABLET PO SCH (08:27)
[2019-03-17] MEDS: TIMOLOL 0.5% OPHTH DROPS BOTTLE 5ML OD SCH ×3 (08:28→20:48)
[2019-03-17] MEDS ORDERED: AZITHROMYCIN 250 MG TABLET PO SCH (09:00)
[2019-03-17] MEDS ORDERED: SPIRONOLACTONE 25 MG TABLET PO SCH (09:00)
[2019-03-17] MEDS ORDERED: AMIODARONE HCL 200 MG TABLET PO SCH (09:00)
[2019-03-17] MEDS: AMIODARONE HCL 200 MG TABLET PO SCH (09:18)
--- NOTE | 2019-03-17 10:04 | Internal Med Progress Note ---
Medical - PN: Subj Patient information: Note initiated : 03/17/19 at 9:58 am Service Date, if different from initiated Date: [] Patient: Delonte Gutierres a 63 y/o M admitted on 03/16/19 for Fever. Chief Complaint: [] Interval history: Mr. Gutierres is a 63 year old M with multiple medical issues, presents to the emergency room today from dialysis unit for evaluation of fever. The patient did not have dialysis. The patient woke up at around 3 AM this morning for his regular dialysis session, his noticed that he had a low-grade temperature and given some aspirin. He showed up to the dialysis center and they noted that he had a fever, and they sent him to the emergency room for evaluation. The patient admits to having some chronic cough that has been bothering him for the last 2 months, he has some difficulty in swallowing and notes that food does get stuck in his esophagus, he does have some nausea and reflux disease secondary to this. He has scheduled GI follow-up for further evaluation of this issue. The patient has no chest pain, nonproductive cough, does have some shortness of breath, but no wheezing. He has nausea secondary to his GI issues no vomiting no abdominal pain no bowel bladder complaints. No new joint pains, he does have chronic wounds and scabs all over his body, he does have a wound on his left hand which he believes is new, denies any acute trauma to that hand. No evidence of infection there.The patient has chronic eye issues, I believe diabetic retinopathy and is followed by ophthalmology for same. On presenting to the emergency room he had a low-grade temperature 99.5, 100.51 rectal, heart rate around 90 blood pressure 130/76 saturating 83% on room air. He uses BiPAP at night otherwise no oxygen needs. Labs showed a white count of 19,400 hemoglobin 9.7 platelets 96 lactic acid 1.2 chemistry relevant for potassium of 6.1 bicarb of 24 creatinine of 8 glucose 160 procalcitonin 0.74 chest x-ray shows pneumonia predominantly on the right side but there are some infiltrates on the left official read is pending Patient is given Rocephin azithromycin and clindamycin in the emergency room, and admitted to the hospital for further management nephrology has been consulted from the emergency room Blood cultures were not drawn prior to antibiotic administration 03/17 Patient seen and examined, no acute overnight events. Doing well. Had hemodialysis yesterday, potassium still elevated today. Patient is on spironolactone. I reviewed this with the tobacco checkout clerk who advised to not continue this medication. Will stop spironolactone. Patient's blood cultures in 1 bottle is positive, gene isolation pending, patient is on vancomycin and Zosyn. Clinically improving Patient does not want to be on a cardiac diet I will remove his restrictions Pertinent ROS: Denies headache, dizziness Denies chest pain, palpitations Denies cough or shortness of breath Denies abdominal pain, nausea or vomiting. - Constitutional Vitals: Vital Signs Temp Pulse Resp BP Pulse Ox 96.8 F L 70 18 132/60 99 03/17/19 09:25 03/17/19 09:49 03/17/19 07:40 03/17/19 09:49 03/17/19 07:40 Period Temp Pulse Resp BP Sys/Michael Pulse Ox Last 24 Hr 96.8 F-98.2 F 66-88 16-18 80-133/20-75 92-100 Intake and Output 03/16/19 03/17/19 03/17/19 21:59 05:59 13:59 Intake Total 600 1630 410 Output Total 250 200 Balance 350 1430 410 Weight 241 lb 3.2 oz Intake & Output: Intake & Output 03/16/19 03/17/19 03/17/19 21:59 05:59 13:59 Intake Total 600 1630 410 Output Total 250 200 Balance 350 1430 410 Weight 241 lb 3.2 oz Intake: IV 550 550 50 Sodium Chloride 0.9% 500 ml @ 500 Wide Open IV BOLUS ONE Rx#: [id number] Zosyn 2.25 gm In Dextrose 5% in 50 50 50 Water 50 ml @ 100 mls/hr IV Q8H [facility] Rx#:[id number] Vancomycin 1,500 mg In Sodium 500 Chloride 0.9% 500 ml @ 333.3 mls/hr IV ONCE ONE Rx#: [id number] Oral 50 1080 360 Output: Void Amount 250 200 Other: Meal snack Breakfast Percent of Meal Consumed 100% 100% Feeding Ability Assist with Tray Set Up Assist with Tray Set Up Urine Appearance Clear Clear Urine Color Dark Yellow Light Laurita Exam: Constitutional; Afebrile, cooperative, alert, not in distress. Respiratory system: Air Entry equal on both sides, No crackles or wheezing, no rhonchi. CVS- Rate rhythm regular, S1,S2 heard, no gallop, no rub. Abdomen- Soft nontender abdomen, no organomegaly, no tenderness, no guarding or rigidity, ENTRY LEVEL ACCOUNT MANAGER- AOOx3, moving all extremities, no gross focal deficit noted. . Medical - PN: Obj Da - Labs CBC & Chem 7: 03/17/19 03:45 03/17/19 03:45 Labs: Abnormal Lab Results 03/17/19 03/17/19 03/17/19 03:45 03:45 03:45 WBC RBC 3.06 L Hgb 8.6 L Hct 26.7 L RDW 17.4 H Gran % 83.7 H Lymph % (Auto) 7.7 L Gran # 9.0 H Lymph # (Auto) 0.8 L PT 31.8 H INR 3.1 H Potassium 5.6 H Chloride Carbon Dioxide 21 L BUN 35 H Creatinine 5.1 H* Glucose 313 H Calcium 7.3 L Phosphorus 4.6 H C-Reactive Protein Albumin 2.8 L Albumin/Globulin Ratio 0.9 L 03/16/19 03/16/19 03/16/19 06:28 06:27 06:27 WBC 19.4 H RBC 3.47 L Hgb 9.7 L Hct 29.3 L RDW 16.0 H Gran % 92.6 H Lymph % (Auto) 2.9 L Gran # 17.9 H Lymph # (Auto) 0.6 L PT 31.2 H INR 3.1 H Potassium 6.1 H* Chloride 94 L Carbon Dioxide BUN 58 H Creatinine 8.0 H* Glucose 160 H Calcium 7.8 L Phosphorus C-Reactive Protein 6.2 H Albumin Albumin/Globulin Ratio Meds: Medications Acetaminophen (Tylenol) 650 mg PO Q6HP PRN PRN Reason: PAIN/FEVER > 101 Albuterol/Ipratropium (Duoneb) 3 ml NEB Q6HRT [facility] Last Admin: 03/17/19 07:30 Dose: 3 ml Documented by: Allopurinol (Zyloprim) 50 mg PO QDAY [facility] Last Admin: 03/17/19 08:27 Dose: 50 mg Documented by: Amiodarone HCl (Cordarone) 50 mg PO [facility] Last Admin: 03/17/19 09:18 Dose: 50 mg Documented by: Amlodipine Besylate (Norvasc) 2.5 mg PO DAILY [facility] Atorvastatin Calcium (Lipitor) 20 mg PO HS [facility] Last Admin: 03/16/19 20:52 Dose: 20 mg Documented by: Azithromycin (Zithromax) 250 mg PO DAILY [facility]; Protocol Stop: 03/20/19 09:01 Last Admin: 03/17/19 08:27 Dose: 250 mg Documented by: Calcium Acetate (Phoslo) 667 mg PO TIDCC [facility] Last Admin: 03/17/19 08:27 Dose: 667 mg Documented by: Dextrose (Dextrose 50%) 0 ml IV UD PRN PRN Reason: Hypoglycemia Diagnostic Test (Pha) (Accu-Chek) 1 each FS [facility] Last Admin: 03/17/19 08:26 Dose: 1 each Documented by: Duloxetine HCl (Cymbalta) 60 mg PO DAILY [facility] Last Admin: 03/17/19 08:26 Dose: 60 mg Documented by: Furosemide (Lasix) 160 mg PO BID [facility] Last Admin: 03/16/19 20:52 Dose: 160 mg Documented by: Gabapentin (Neurontin) 300 mg PO DAILY [facility] Last Admin: 03/17/19 08:27 Dose: 300 mg Documented by: Glucose (Insta-Glucose) 15 gm PO PRN PRN PRN Reason: Hypoglycemia Hydromorphone HCl (Dilaudid) 4 mg PO Q4HP PRN PRN Reason: PAIN LEVEL 3-6 Last Admin: 03/17/19 09:12 Dose: 4 mg Documented by: Piperacillin Sod/Tazobactam (Sod 2.25 gm/ Dextrose) 50 mls @ 100 mls/hr IV Q8H [facility]; Protocol Last Infusion: 03/17/19 06:15 Dose: Infused Documented by: Insulin Human Lispro (Humalog) 0 unit SQ [facility]; Protocol Last Admin: 03/17/19 08:26 Dose: 9 units Documented by: Losartan Potassium (Cozaar) 50 mg PO QDAY [facility] Multivit/Ca Carb/B Cmplx/FA/Prenat (Diatx) 1 tab PO QDAY [facility] Last Admin: 03/17/19 08:27 Dose: 1 tab Documented by: Naloxone HCl (Narcan) 0.1 mg IV Q2MIN PRN PRN Reason: Opiate Reversal Ondansetron HCl (Zofran) 4 mg IV Q4HP PRN PRN Reason: Nausea And Vomiting Pantoprazole Sodium (Protonix) 40 mg PO QAMAC [facility] Last Admin: 03/17/19 08:27 Dose: 40 mg Documented by: [Latanoprost 0.005% (Eye Drop) 1 dose OU [facility] Last Admin: 03/16/19 20:53 Dose: Not Given Documented by: Pramipexole Dihydrochloride (Mirapex) 0.25 mg PO [facility] Last Admin: 03/16/19 21:12 Dose: 0.25 mg Documented by: Sevelamer Carbonate (Renvela) 2,400 mg PO TIDCC [facility] Last Admin: 03/17/19 08:27 Dose: 2,400 mg Documented by: Sodium Chloride (Saline Flush) 10 ml IV Q8 [facility] Last Admin: 03/17/19 05:42 Dose: 10 ml Documented by: Timolol Maleate (Timoptic 0.5% Ophth Drops) 1 gtt OD BID [facility] Last Admin: 03/17/19 08:28 Dose: Not Given Documented by: Vancomycin HCl (Vancomycin Per Pharmacy) 1 order IV [facility] [place]; Protocol Warfarin Sodium (Coumadin Per Pharmacy) 1 order PO UD [facility] Medical - PN: A/P - Time Spent With Patient Total time spent is greater than 50% in coordination of care (as documented) at patient's floor/unit and/or counseling patient: - Narrative A/P Narrative: A/P Acute hypoxic Respiratory Failure (resolved, pt on room air) Health care associated Pneumonia DM with vascular complications Diabetic Retinopathy S/p BKA Skin wounds Diabetic Retinopathy HTN ESRD on HD HLD CAD s/p CABG Mitral Valve replacement Chronic Anticoagulation Sepsis, per SIRS criteria Hyperkalemia Chronic Gout Chronic wounds Gram-positive bacteremia Plan Continue to monitor until potassium is normalized nephrology consulted for HD, Discontinue Aldactone IV vanco, zosyn, Zithromax for HCAP pna, blood cultures growing gram-positive bacteremia, Get echocardiogram to evaluate valves blood and sputum cx, deescalate abx per microbiology results, given positive blood cultures in 1 bottle repeat set of blood cultures SSI insulin for glucose control, increase the dose of Lantus from 40 at bedtime to 55 at bedtime. Patient is home dose is 55 units I am not sure the patient will be able to tolerate that dose will gradually increase back to his home dose Resume home meds once appropriate hold bp meds x 24 hrs till bp is stable Resume cardiac meds check inr, Coumadin management per pharmacy cover wounds with guaze, DVT on coumadin Full code Cardiac, renal, carb consistent diet. Medical - PN: Qual - Stroke Symptom Onset Unknown: No - VTE Deep Vein Thrombosis/Pulmonary Embolism Present on Admission: No
[2019-03-17] MEDS: FUROSEMIDE 80 MG TABLET PO SCH ×2 (13:49→20:48)
[2019-03-17] MEDS: LOSARTAN 50 MG TABLET PO SCH (13:49)
[2019-03-17] MEDS: amLODIPine 5 MG TABLET PO SCH (13:50)
[2019-03-17] MEDS: cefTRIAXone 2 GM in DEXTROSE 5% IN WATER 50 ML IV SCH (13:58)
--- NOTE | 2019-03-17 14:45 | XRay Report ---
HISTORY: Pneumonia versus congestive heart failure FINDINGS: There are diffuse mild generalized infiltrates throughout both lungs. There is been improvement bilaterally since 03/16/19. The heart remains mildly enlarged. There has been prior coronary bypass surgery and patient is a prosthetic aortic valve. There is no pleural effusion. The pulmonary vessels are largely obscured by the infiltrates. IMPRESSION: Improving bilateral infiltrates. This could be due to widespread pneumonia, pulmonary edema or combination of both Interpreted and Authenticated by: Charles Viera 03/17/19
[2019-03-17 15:20] LABS: Vancomycin,Random 15.3 ug/mL
[2019-03-17] MEDS ORDERED: VANCOMYCIN 1,000 MG in 0.9 % SODIUM CHLORIDE 250 ML IV ONE (15:30)
[2019-03-17] MEDS: ATORVASTATIN 20 MG TABLET PO SCH (20:48)
[2019-03-17] MEDS: PRAMIPEXOLE 0.25 MG TABLET PO SCH (20:48)
[2019-03-17] MEDS: EYE OU SCH ×2 (20:49→20:55)
[2019-03-17] MEDS: LATANOPROST 0.005% OU SCH ×2 (20:49→20:55)
[2019-03-17] MEDS ORDERED: INSULIN GLARGINE, HUMAN 1 UNIT/0.01 ML SQ SCH (21:00)
--- NOTE | 2019-03-17 22:10 | Infectious Disease Consult ---
History of Present Illness Patient information: Note initiated : 03/17/19 at 9:54 pm Service Date, if different from initiated Date: [] Patient: Delonte Gutierres 63 y/o M admitted on 03/16/19 for Fever. Chief Complaint: [] Consult date: 03/17/19 Requesting Physician: Sridevi Ferris Reason for Consult: GPC bacteremia Chief complaint: I had hand sores, and felt febrile History of present illness: 63 year old man with PMHx of: - ESRD on HD through Lt arm AVF - GERD - CAD s/p CABG and valve replacement Pt was sent to [facility] on 03/16 from dialysis after being found to have fever. Pt did not have his HD. He was about 4 kg above his dry weight when he came to the dialysis unit. Pt had also noticed development of blisters over his left hand few days ago, while he was out in sun fishing. Pt denied any pus drainage, fever prior to yesterday. He endorsed chronic SOB with mildly productive cough with clear sputum. Denied any worsening of baseline SOB, chest pain, n/v, diarrhea. He also mentioned having swallowing problems since last few months and episodes of regurgitation. In ED: Temp 99.5F, HR 90, BP 130/76, O2 sats 83% on room air. Labs: WBC 19,400 Hb 9.7 platelets 96 lactic acid 1.2 Procalcitonin 0.74. CXR revealed b/l fluffy opacities, slightly better than in 11/2018. Pt was given Rocephin, azithromycin and clindamycin in the emergency room, and admitted to the hospital. Blood cultures weredrawn after admisssion. They came back +ve for Streptococcus species in 1/2 sets. Verigene was negative for common gram positive pathogens. Pt had been on IV Vanc and IV Zosyn, and PO Azithromax. At time of visit, he was feeling better. He denied any fever, chills, n/v, diarrhea, pain or redness around the lt arm AVF. He reeceives wound care for left hand wounds in [place]. Review of Systems All systems PM: reviewed and no additional remarkable complaints except as stated Past History Past family history: no hx of sick contacts Past social history: lives at home with in [place], [place] Medications and Allergies Home Medications Medication Instructions Recorded Confirmed Type insulin U- 100 regular human 100 See Dose Instructions SUB-Q 02/10/15 03/16/19 History unit/mL injection solution .COMPLEX ml insulin glargine (U- 100) 100 55 unit SUB-Q BID ml 01/03/16 03/16/19 History unit/mL subcutaneous solution amLODIPine [Norvasc] 2.5 mg PO DAILY 05/24/17 03/16/19 History allopurinol 100 mg tablet 50 mg PO QDAY 90 Days #45 tab 10/21/18 03/16/19 Rx losartan 50 mg tablet 50 mg PO QDAY #90 tab 10/21/18 03/16/19 Rx DULoxetine HCL [Cymbalta] 60 mg PO DAILY 11/24/18 03/16/19 History Furosemide [Lasix] 160 mg PO BID 11/24/18 03/16/19 History Latanoprost/Pf [Latanoprost 0.005% 1 gtt OU HS 11/24/18 03/16/19 History Eye Drop] Ranitidine HCl [Heartburn Relief] 150 mg PO BID 11/24/18 03/16/19 History Sevelamer HCl [Renagel] 2,400 mg PO TIDCC 11/24/18 03/16/19 History vitamin B complex-vitamin C-folic 1 tab PO QDAY #30 tab 02/16/19 03/16/19 Rx acid 0.8 mg tablet Amiodarone HCl [Pacerone] 50 mg PO DAILY 03/16/19 03/16/19 History Calcium Acetate [Calphron] 667 mg PO TIDCC 03/16/19 03/16/19 History Gabapentin [Neurontin] 300 mg PO DAILY 03/16/19 03/16/19 History HYDROmorphone [Dilaudid] 4 mg PO Q4HP PRN 03/16/19 03/16/19 History Pramipexole Di-HCl [Pramipexole 0.25 mg PO HSP PRN 03/16/19 03/16/19 History Dihydrochloride] Rosuvastatin [Crestor] 10 mg PO HS 03/16/19 03/16/19 History Semaglutide (Ozempic) 0.5 mg SC TU 03/16/19 03/16/19 History Spironolactone [Aldactone] 25 mg PO DAILY 03/16/19 03/16/19 History Timolol 0.5% Ophth Drops [Timoptic 1 gtt OD BID 03/16/19 03/16/19 History 0.5% Ophth Drops] Warfarin [Coumadin] 7.5 mg PO SUMOWEFRSA 03/16/19 03/16/19 History Warfarin [Coumadin] 10 mg PO TUTH 03/16/19 03/16/19 History Allergies Allergy/AdvReac Type Severity Reaction Status Date / Time iron [IRON] Allergy Severe Anaphylaxis Verified 11/19/16 10:55 acetaminophen [From [place]] Allergy Mild Hives Verified 11/19/16 10:55 hydrocodone [From [place]] Allergy Mild Hives Verified 11/19/16 10:55 exenatide [From [place]] Allergy Unknown Unknown Verified 11/19/16 10:55 lisinopril AdvReac Mild Cough Verified 11/24/18 09:25 Physical Examination Vital signs: Temp Pulse Resp BP Pulse Ox 36.9 C 82 24 H 141/58 98 03/17/19 20:08 03/17/19 20:08 03/17/19 20:08 03/17/19 20:08 03/17/19 20:08 General appearance: no acute distress Eyes pulmonary: nonicteric ENT: oropharynx moist Auscultation: bilateral: clear (in upper lung vidales), diminished breath sounds (at bases) Cardiovascular: other (s1 s2 normal, no m/r/g) Gastrointestinal: normoactive bowel sounds, soft, non-tender Integumentary: other (has scabbed wounds, 3-4 over his hands mainly on dorsum. ) Extremities: edema Results - Laboratory Findings CBC and BMP: 03/18/19 03:35 03/18/19 03:35 PT/INR, D-dimer PT 31.8 sec (11.9-14.5) H 03/17/19 03:45 INR 3.1 (0.9-1.1) H 03/17/19 03:45 Abnormal lab findings: Abnormal Labs 03/16/19 03/16/19 03/16/19 06:27 06:27 06:28 WBC 19.4 H RBC 3.47 L Hgb 9.7 L Hct 29.3 L RDW 16.0 H Gran % 92.6 H Lymph % (Auto) 2.9 L Gran # 17.9 H Lymph # (Auto) 0.6 L PT 31.2 H INR 3.1 H Potassium 6.1 H* Chloride 94 L Carbon Dioxide BUN 58 H Creatinine 8.0 H* Glucose 160 H Calcium 7.8 L Phosphorus C-Reactive Protein 6.2 H Albumin Albumin/Globulin Ratio 03/17/19 03/17/19 03/17/19 03:45 03:45 03:45 WBC RBC 3.06 L Hgb 8.6 L Hct 26.7 L RDW 17.4 H Gran % 83.7 H Lymph % (Auto) 7.7 L Gran # 9.0 H Lymph # (Auto) 0.8 L PT 31.8 H INR 3.1 H Potassium 5.6 H Chloride Carbon Dioxide 21 L BUN 35 H Creatinine 5.1 H* Glucose 313 H Calcium 7.3 L Phosphorus 4.6 H C-Reactive Protein Albumin 2.8 L Albumin/Globulin Ratio 0.9 L Microbiology: Microbiology 03/17/19 08:41 Sputum - Expectorated Gram Stain - Final 03/17/19 08:41 Sputum - Expectorated Sputum Culture - Final 03/16/19 09:30 Blood Blood Culture - Preliminary 03/16/19 08:34 Blood Blood Culture - Preliminary Gram positive cocci 03/16/19 10:38 Nose - Both Right and Left MRSA (PCR) - Final 03/16/19 08:41 Sputum - Expectorated Gram Stain - Final 03/16/19 08:41 Sputum - Expectorated Sputum Culture - Final Assessment and Plan - Narrative A/P Narrative: A: 1. Gram-positive bacteremia: prelim w/u reveals Streptococcus species growing from 2 bottles of 2 different sets [neg for Staph aureus, Strept pneumo, Gp A Strept, Strept anginosus, Enterococcus on verigene] - 1st neg blood Cx so far are from 03/17 - Pt meets 3 minor of Modified [place] criteria ---> Possible IE. A JOSE is optimal imaging to r/o IE - no sepsis - likely source is skin wounds as in (3) 2. ESRD on HD: - volume overload at admisssion with pulm edema, now resolved with improvement in serial CXR (admission vs today) 3. Lt hand superficial wounds: no signs of active infection Recommendations: - Stop IV Vanc and IV Zosyn, and PO Azithromax - Start IV Ceftriaxone 2 gm q24 hrs - repeat blood Cx every other day until neg - consider JOSE to r/o IE. Could be done as OP over next few days - will wait for final ID and sensi before deciding final choice of therapy. Most likely Cefazolin after HD as 2 gm on Saturday, 2 gm on Saturday and 3 gm on Saturday could be considered. Duration based on JOSE results - pt at high risk for aspiration given his swallowing issues. agree with Ba swallow/EGD scheduled over next few days & HOB elev at all times, and for 30 min after meals will follow Raheem Acevedo MD Infectious diseases
[2019-03-18] MEDS: IPRATROPIUM/ALBUTEROL 3 ML AMPUL.NEB NEB SCH ×4 (00:19→18:53)
[2019-03-18] MEDS: 0.9 % SODIUM CHLORIDE 10 ML SYRINGE IV SCH ×3 (05:21→20:44)
[2019-03-18 06:09] LABS: Basophils # (Auto) 0.1 K/mcL (0.0-0.3); Basophils % (Auto) 0.6 % (0.0-2.0); Eosinophils # (Auto) 0.3 K/mcL (0.0-0.7); Eosinophils % (Auto) 2.9 % (0.0-7.0); Granulocytes % (Auto) 72.4 % (38.0-78.0); Hematocrit 29.4 % (41.0-55.0); Hemoglobin 9.2 g/dL (13.5-16.5); Lymphocytes # (Auto) 1.2 K/mcL (1.5-4.8); Lymphocytes % (Auto) 13.3 % (15.5-49.0); Mean Cell Volume 87.8 fL (80.0-100.0); Mean Corpuscular HGB Conc 31.4 g/dL (31.0-36.0); Mean Platelet Volume 8.1 fL (7.4-10.4); Monocytes # (Auto) 0.9 K/mcL (0.1-0.9); Monocytes % (Auto) 10.8 % (1.0-12.0); Platelet Count 256 K/mcL (140-440); RBC 3.35 M/mcL (4.50-5.90); Red Cell Distribution Width 17.4 % (11.5-14.5); WBC 8.8 K/mcL (4.5-11.0)
[2019-03-18 06:15] LABS: INR 1.9 (0.9-1.1); Prothrombin Time 21.5 sec (11.9-14.5)
[2019-03-18 06:27] LABS: ALT/SGPT 15 U/l (0-40); AST/SGOT 15 U/l (0-37); Albumin 3.1 gm/dL (3.2-5.2); Alkaline Phosphatase 100 U/L (39-117); Bilirubin,Direct < 0.2 mg/dL (0.0-0.3); Bilirubin,Total 0.2 mg/dL (0.0-1.0); Blood Urea Nitrogen 25 mg/dl (8-23); Calcium 7.9 mg/dl (8.6-10.4); Carbon Dioxide 30 mmol/L (22-30); Chloride 98 mmol/L (96-108); Globulin 3.1 gm/dL (2.2-3.7); Glomerular Filtration Rate 16; Glucose 42 mg/dL (70-105); Lactate Dehydrogenase 282 U/L (94-250); Phosphorous 3.6 mg/dL (2.7-4.5); Triglycerides 104 mg/dl (<150); Uric Acid 2.7 mg/dL (2.5-8.0)
--- NOTE | 2019-03-18 07:11 | Nephrology Progress Note ---
Subjective Patient information: Note initiated : 03/18/19 at 7:09 am Patient: Delonte Gutierres 63 y/o M admitted on 03/16/19 for Fever. Chief Complaint: Fever Pertinent ROS: Weakness Feels better Objective - Vital Signs Vital signs: Vital Signs Temp Pulse Pulse Resp BP Pulse Ox 03/18/19 03:50 96.6 F L 18 123/65 94 03/17/19 22:55 129/57 03/17/19 21:04 121/76 03/17/19 20:48 97.9 F 20 129/52 93 03/17/19 20:31 130/53 03/17/19 20:16 125/49 03/17/19 20:08 98.5 F 82 24 H 141/58 98 03/17/19 20:04 141/58 03/17/19 20:01 119/36 03/17/19 19:46 111/37 03/17/19 19:31 112/51 03/17/19 19:17 124/44 03/17/19 19:01 133/56 03/17/19 18:46 95/75 03/17/19 18:35 84 18 03/17/19 18:32 122/53 03/17/19 18:17 127/61 03/17/19 18:01 135/61 03/17/19 17:46 120/61 03/17/19 17:32 124/47 03/17/19 17:17 133/52 03/17/19 17:02 125/52 03/17/19 16:47 127/57 03/17/19 16:31 123/48 03/17/19 16:16 118/52 03/17/19 14:01 118/56 03/17/19 13:46 102/50 03/17/19 13:31 114/58 03/17/19 13:28 109/50 03/17/19 13:16 96.8 F L 74 136/74 03/17/19 13:05 73 18 03/17/19 13:03 118/54 03/17/19 12:59 72 118/54 03/17/19 12:45 73 106/51 03/17/19 12:34 75 133/55 03/17/19 12:32 133/55 03/17/19 12:16 131/47 03/17/19 12:11 75 131/47 03/17/19 12:01 96.8 F L 18 116/57 95 03/17/19 11:46 20 120/67 95 03/17/19 11:42 63 120/67 03/17/19 11:31 17 129/63 97 03/17/19 11:27 67 129/63 03/17/19 11:19 67 134/60 03/17/19 11:16 12 134/60 95 03/17/19 11:01 18 125/59 97 03/17/19 10:46 17 129/59 95 03/17/19 10:42 66 129/59 03/17/19 10:31 16 137/58 95 03/17/19 10:30 73 137/58 03/17/19 10:19 70 132/64 03/17/19 10:16 18 132/64 95 03/17/19 10:01 17 131/65 97 03/17/19 09:57 73 131/65 03/17/19 09:49 70 132/60 03/17/19 09:46 18 132/60 95 03/17/19 09:31 76 19 122/53 95 03/17/19 09:25 96.8 F L 76 125/56 03/17/19 09:24 17 125/56 95 03/17/19 09:21 16 124/61 95 03/17/19 08:00 68 18 95 03/17/19 07:43 18 118/58 97 03/17/19 07:40 97.1 F 18 118/58 99 03/17/19 07:37 72 16 Intake and Output 03/17/19 03/18/19 03/18/19 21:59 05:59 13:59 Intake Total 660 Balance 660 Intake: IV 300 Vancomycin 1,000 mg In Sodium 250 Chloride 0.9% 250 ml @ 250 mls/ hr IV ONCE ONE Rx#:[id number] Rocephin 2 gm In Dextrose 5% in 50 Water 50 ml @ 100 mls/hr IV Q24H [facility] Rx#:[id number] Oral 360 Other: Meal Lunch Percent of Meal Consumed 100% Feeding Ability Assist with Tray Set Up Stool Size Moderate Stool Color Brown Stool Consistency Dry and Hard Weight 236 lb 9.6 oz Intake & Output: Intake & Output 03/17/19 03/18/19 03/18/19 21:59 05:59 13:59 Intake Total 660 Balance 660 Weight 236 lb 9.6 oz Intake: IV 300 Vancomycin 1,000 mg In Sodium 250 Chloride 0.9% 250 ml @ 250 mls/ hr IV ONCE ONE Rx#:[id number] Rocephin 2 gm In Dextrose 5% in 50 Water 50 ml @ 100 mls/hr IV Q24H [facility] Rx#:[id number] Oral 360 Other: Meal Lunch Percent of Meal Consumed 100% Feeding Ability Assist with Tray Set Up Stool Size Moderate Stool Color Brown Stool Consistency Dry and Hard - General Appearance General appearance: chronically ill, fatigue EENT: mucous membranes moist Neck: supple Respiratory: clear Cardiology: edema Gastrointestinal: no tenderness Integumentary: warm and dry Neurologic: no focal deficit, alert and oriented x3 Musculoskeletal: deformities Psychiatric: mood/affect appropriate, cooperative - Lab 03/18/19 03:35 03/18/19 03:35 Most recent lab results Calcium 7.9 mg/dl (8.6-10.4) L 03/18/19 03:35 Phosphorus 3.6 mg/dL (2.7-4.5) 03/18/19 03:35 Magnesium 2.1 mg/dL (1.6-2.5) 03/18/19 03:35 Assessment and Plan (1) ESRD (end stage renal disease) on dialysis Delonte Gutierres is a 63-year-old male with end-stage renal disease on chronic hemodialysis (at [facility], on [facility]), referred to ED from dialysis unit for fever and admitted for sepsis from bacteremia. End-stage renal disease on chronic hemodialysis. Progress: Hemodialysis on 03/16/19 and 03/17/19. Hyperkalemia and metabolic acidosis, resolved. Fluid overload, improved. Chronic anemia due to ESRD. Plan: Hemodialysis on and Saturday then [facility]. Status: Chronic Priority: Medium (2) Anemia due to end stage renal disease Please see above Status: Chronic Priority: Medium
--- NOTE | 2019-03-18 07:38 | Internal Med Progress Note ---
Medical - PN: Subj Patient information: Note initiated : 03/18/19 at 7:35 am Service Date, if different from initiated Date: [] Patient: Delonte Gutierres a 63 y/o M admitted on 03/16/19 for Fever. Chief Complaint: [] Interval history: Mr. Gutierres is a 63 year old M with multiple medical issues, presents to the emergency room today from dialysis unit for evaluation of fever. The patient did not have dialysis. The patient woke up at around 3 AM this morning for his regular dialysis session, his noticed that he had a low-grade temperature and given some aspirin. He showed up to the dialysis center and they noted that he had a fever, and they sent him to the emergency room for evaluation. The patient admits to having some chronic cough that has been bothering him for the last 2 months, he has some difficulty in swallowing and notes that food does get stuck in his esophagus, he does have some nausea and reflux disease secondary to this. He has scheduled GI follow-up for further evaluation of this issue. The patient has no chest pain, nonproductive cough, does have some shortness of breath, but no wheezing. He has nausea secondary to his GI issues no vomiting no abdominal pain no bowel bladder complaints. No new joint pains, he does have chronic wounds and scabs all over his body, he does have a wound on his left hand which he believes is new, denies any acute trauma to that hand. No evidence of infection there.The patient has chronic eye issues, I believe diabetic retinopathy and is followed by ophthalmology for same. On presenting to the emergency room he had a low-grade temperature 99.5, 100.51 rectal, heart rate around 90 blood pressure 130/76 saturating 83% on room air. He uses BiPAP at night otherwise no oxygen needs. Labs showed a white count of 19,400 hemoglobin 9.7 platelets 96 lactic acid 1.2 chemistry relevant for potassium of 6.1 bicarb of 24 creatinine of 8 glucose 160 procalcitonin 0.74 chest x-ray shows pneumonia predominantly on the right side but there are some infiltrates on the left official read is pending Patient is given Rocephin azithromycin and clindamycin in the emergency room, and admitted to the hospital for further management nephrology has been consulted from the emergency room Blood cultures were not drawn prior to antibiotic administration 03/17 Patient seen and examined, no acute overnight events. Doing well. Had hemodialysis yesterday, potassium still elevated today. Patient is on spironolactone. I reviewed this with the garbage man who advised to not continue this medication. Will stop spironolactone. Patient's blood cultures in 1 bottle is positive, gene isolation pending, patient is on vancomycin and Zosyn. Clinically improving Patient does not want to be on a cardiac diet I will remove his restrictions 03/18 Patient seen and examined, no acute overnight events. Potassium is less than 5 today. We will transfer the patient to [facility]. X-ray chest was done yesterday resolving infiltrate versus possible CHF. Blood cultures are negative so far Isolation and sensitivity of the Streptococcus is pending patient has been transitioned to Rocephin as per ID recommendations. Transesophageal echo has been advised by the infectious disease talent acquisition consultant which cannot be done in this facility. This will be done as an outpatient if possible and the patient can follow-up with the infectious disease clinic Transthoracic echo report is pending yet if it shows vegetations then the transesophageal echo would be a moot point. Patient is an AP with a dysphagia diet, he says he has no issues with swallowing. I will change his diet to renal carb consistent diet with no dysphagia restrictions Pertinent ROS: Denies headache, dizziness Denies chest pain, palpitations Denies cough or shortness of breath Denies abdominal pain, nausea or vomiting. - Constitutional Vitals: Vital Signs Temp Pulse Resp BP Pulse Ox 96.6 F L 82 18 123/65 94 03/18/19 03:50 03/17/19 20:08 03/18/19 03:50 03/18/19 03:50 03/18/19 03:50 Period Temp Pulse Resp BP Sys/Michael Pulse Ox Last 24 Hr 96.6 F-98.5 F 63-84 12-24 95-141/36-76 93-99 Intake and Output 03/17/19 03/18/19 03/18/19 21:59 05:59 13:59 Intake Total 660 Balance 660 Weight 236 lb 9.6 oz Intake & Output: Intake & Output 03/17/19 03/18/19 03/18/19 21:59 05:59 13:59 Intake Total 660 Balance 660 Weight 236 lb 9.6 oz Intake: IV 300 Vancomycin 1,000 mg In Sodium 250 Chloride 0.9% 250 ml @ 250 mls/ hr IV ONCE ONE Rx#:[id number] Rocephin 2 gm In Dextrose 5% in 50 Water 50 ml @ 100 mls/hr IV Q24H [facility] Rx#:[id number] Oral 360 Other: Meal Lunch Percent of Meal Consumed 100% Feeding Ability Assist with Tray Set Up Stool Size Moderate Stool Color Brown Stool Consistency Dry and Hard Exam: Constitutional; Afebrile, cooperative, alert, not in distress. Respiratory system: Air Entry equal on both sides, No crackles or wheezing, no rhonchi. CVS- Rate rhythm regular, S1,S2 heard, no gallop, no rub. 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 Medical - PN: Obj Da - Labs CBC & Chem 7: 03/18/19 03:35 03/18/19 03:35 Labs: Abnormal Lab Results 03/18/19 03/18/19 03/18/19 03:35 03:35 03:35 WBC RBC 3.35 L Hgb 9.2 L Hct 29.4 L RDW 17.4 H Gran % Lymph % (Auto) 13.3 L Gran # Lymph # (Auto) 1.2 L PT 21.5 H INR 1.9 H Potassium Chloride Carbon Dioxide BUN 25 H Creatinine 3.7 H Glucose 42 L Calcium 7.9 L Phosphorus Lactate Dehydrogenase 282 H C-Reactive Protein Albumin 3.1 L Albumin/Globulin Ratio 03/17/19 03/17/19 03/17/19 03:45 03:45 03:45 WBC RBC 3.06 L Hgb 8.6 L Hct 26.7 L RDW 17.4 H Gran % 83.7 H Lymph % (Auto) 7.7 L Gran # 9.0 H Lymph # (Auto) 0.8 L PT 31.8 H INR 3.1 H Potassium 5.6 H Chloride Carbon Dioxide 21 L BUN 35 H Creatinine 5.1 H* Glucose 313 H Calcium 7.3 L Phosphorus 4.6 H Lactate Dehydrogenase C-Reactive Protein Albumin 2.8 L Albumin/Globulin Ratio 0.9 L 03/16/19 03/16/19 03/16/19 06:28 06:27 06:27 WBC 19.4 H RBC 3.47 L Hgb 9.7 L Hct 29.3 L RDW 16.0 H Gran % 92.6 H Lymph % (Auto) 2.9 L Gran # 17.9 H Lymph # (Auto) 0.6 L PT 31.2 H INR 3.1 H Potassium 6.1 H* Chloride 94 L Carbon Dioxide BUN 58 H Creatinine 8.0 H* Glucose 160 H Calcium 7.8 L Phosphorus Lactate Dehydrogenase C-Reactive Protein 6.2 H Albumin Albumin/Globulin Ratio Meds: Medications Acetaminophen (Tylenol) 650 mg PO Q6HP PRN PRN Reason: PAIN/FEVER > 101 Albuterol/Ipratropium (Duoneb) 3 ml NEB Q6HRT [facility] Last Admin: 03/18/19 06:47 Dose: 3 ml Documented by: Allopurinol (Zyloprim) 50 mg PO QDAY [facility] Last Admin: 03/17/19 08:27 Dose: 50 mg Documented by: Amiodarone HCl (Cordarone) 50 mg PO QAC [facility] Last Admin: 03/17/19 09:18 Dose: 50 mg Documented by: Amlodipine Besylate (Norvasc) 2.5 mg PO DAILY [facility] Last Admin: 03/17/19 13:50 Dose: Not Given Documented by: Atorvastatin Calcium (Lipitor) 20 mg PO HS [facility] Last Admin: 03/17/19 20:48 Dose: 20 mg Documented by: Calcium Acetate (Phoslo) 667 mg PO TIDCC [facility] Last Admin: 03/17/19 17:58 Dose: 667 mg Documented by: Dextrose (Dextrose 50%) 0 ml IV UD PRN PRN Reason: Hypoglycemia Diagnostic Test (Pha) (Accu-Chek) 1 each FS ACHS [facility] Last Admin: 03/17/19 20:39 Dose: 1 each Documented by: Duloxetine HCl (Cymbalta) 60 mg PO DAILY [facility] Last Admin: 03/17/19 08:26 Dose: 60 mg Documented by: Furosemide (Lasix) 160 mg PO BID [facility] Last Admin: 03/17/19 20:48 Dose: 160 mg Documented by: Gabapentin (Neurontin) 300 mg PO DAILY [facility] Last Admin: 03/17/19 08:27 Dose: 300 mg Documented by: Glucose (Insta-Glucose) 15 gm PO PRN PRN PRN Reason: Hypoglycemia Hydromorphone HCl (Dilaudid) 4 mg PO Q4HP PRN PRN Reason: PAIN LEVEL 3-6 Last Admin: 03/17/19 20:57 Dose: 4 mg Documented by: Ceftriaxone Sodium 2 gm/ (Dextrose) 50 mls @ 100 mls/hr IV Q24H [facility]; Protocol Last Infusion: 03/17/19 14:30 Dose: Infused Documented by: Insulin Glargine (Lantus) 55 unit SQ [facility] Last Admin: 03/17/19 20:48 Dose: 55 unit Documented by: Insulin Human Lispro (Humalog) 0 unit SQ [facility]; Protocol Last Admin: 03/17/19 20:47 Dose: 15 units Documented by: Losartan Potassium (Cozaar) 50 mg PO QDAY [facility] Last Admin: 03/17/19 13:49 Dose: Not Given Documented by: Multivit/Ca Carb/B Cmplx/FA/Prenat (Diatx) 1 tab PO QDAY [facility] Last Admin: 03/17/19 08:27 Dose: 1 tab Documented by: Naloxone HCl (Narcan) 0.1 mg IV Q2MIN PRN PRN Reason: Opiate Reversal Ondansetron HCl (Zofran) 4 mg IV Q4HP PRN PRN Reason: Nausea And Vomiting Pantoprazole Sodium (Protonix) 40 mg PO QAMAC [facility] Last Admin: 03/17/19 08:27 Dose: 40 mg Documented by: [Latanoprost 0.005% (Eye Drop) 1 dose OU [facility] Last Admin: 03/17/19 20:55 Dose: Not Given Documented by: Pramipexole Dihydrochloride (Mirapex) 0.25 mg PO [facility] Last Admin: 03/17/19 20:48 Dose: 0.25 mg Documented by: Sevelamer Carbonate (Renvela) 2,400 mg PO TIDCC [facility] Last Admin: 03/17/19 17:58 Dose: 2,400 mg Documented by: Sodium Chloride (Saline Flush) 10 ml IV Q8 [facility] Last Admin: 03/18/19 05:21 Dose: 10 ml Documented by: Timolol Maleate (Timoptic 0.5% Ophth Drops) 1 gtt OD BID [facility] Last Admin: 03/17/19 20:48 Dose: 1 gtt Documented by: Vancomycin HCl (Vancomycin Per Pharmacy) 1 order IV UD [facility]; Protocol Warfarin Sodium (Coumadin Per Pharmacy) 1 order PO UD [facility] Medical - PN: A/P - Time Spent With Patient Total time spent is greater than 50% in coordination of care (as documented) at patient's floor/unit and/or counseling patient: - Narrative A/P Narrative: A/P Acute hypoxic Respiratory Failure (resolved, pt on room air) Health care associated Pneumonia DM with vascular complications Diabetic Retinopathy S/p BKA Skin wounds Diabetic Retinopathy HTN ESRD on HD HLD CAD s/p CABG Mitral Valve replacement Chronic Anticoagulation Sepsis, per SIRS criteria Hyperkalemia Chronic Gout Chronic wounds Gram-positive bacteremia, Streptococcus Paroxysmal atrial fibrillation, rate controlled patient is on chronic Coumadin anticoagulation for this reason Plan Transfer to [facility] nephrology consulted for HD, Discontinue Aldactone IV Rocephin 2 g daily, discontinue rest of antibiotics at the recommendation of infectious disease Get echocardiogram to evaluate valves, official report pending Repeat blood cultures drawn yesterday results not back yet SSI insulin for glucose control, increase the dose of Lantus from 40 at bedtime to 55 at bedtime. Patient is home dose is 55 units I am not sure the patient will be able to tolerate that dose will gradually increase back to his home dose Resume home meds once appropriate Resume cardiac meds check inr, Coumadin management per pharmacy cover wounds with guaze, DVT on coumadin Full code Cardiac, renal, carb consistent diet. Medical - PN: Qual - Stroke Symptom Onset Unknown: No - VTE Deep Vein Thrombosis/Pulmonary Embolism Present on Admission: No
[2019-03-18] MEDS: PANTOPRAZOLE 40 MG TABLET PO SCH (07:47)
[2019-03-18] MEDS: SEVELAMER 800 MG TABLET PO SCH ×3 (08:22→16:59)
[2019-03-18] MEDS: CALCIUM ACETATE 667 MG CAPSULE PO SCH ×3 (08:22→16:59)
[2019-03-18] MEDS: AMIODARONE HCL 200 MG TABLET PO SCH (08:22)
[2019-03-18] MEDS: FUROSEMIDE 80 MG TABLET PO SCH ×2 (08:23→20:37)
[2019-03-18] MEDS: GABAPENTIN 300 MG CAPSULE PO SCH (08:23)
[2019-03-18] MEDS: amLODIPine 5 MG TABLET PO SCH (08:23)
[2019-03-18] MEDS: DULoxetine 30 MG CAPSULE PO SCH (08:23)
[2019-03-18] MEDS: ALLOPURINOL 100 MG TABLET PO SCH (08:24)
[2019-03-18] MEDS: LOSARTAN 50 MG TABLET PO SCH (08:24)
[2019-03-18] MEDS: FOLIC ACID/VITAMIN B COMP W-C 1 TAB TABLET PO SCH (08:24)
[2019-03-18] MEDS: INSULIN LISPRO 1 UNIT/0.01 ML UNIT SQ SCH ×4 (08:25→20:43)
[2019-03-18] MEDS: TIMOLOL 0.5% OPHTH DROPS BOTTLE 5ML OD SCH ×2 (10:02→20:44)
[2019-03-18] MEDS: cefTRIAXone 2 GM in DEXTROSE 5% IN WATER 50 ML IV SCH (10:02)
[2019-03-18] MEDS ORDERED: DEXTROSE 31 GM ORAL.SUSP PO PRN (10:11)
[2019-03-18] MEDS ORDERED: DEXTROSE 50% 50 ML VIAL IV PRN (10:11)
[2019-03-18] MEDS ORDERED: ACETAMINOPHEN 325 MG TABLET PO PRN (10:11)
[2019-03-18] MEDS ORDERED: ONDANSETRON 4 MG/2 ML VIAL IV PRN (10:11)
[2019-03-18] MEDS ORDERED: NALOXONE HCL 0.4 MG/ML VIAL IV PRN (10:11)
[2019-03-18] MEDS: HYDROmorphone 2 MG TABLET PO PRN ×2 (11:35→20:36)
--- NOTE | 2019-03-18 13:05 | Infectious Disease Prog Note ---
Subjective Patient information: Note initiated : 03/18/19 at 12:58 pm Service Date, if different from initiated Date: [] Patient: Delonte Gutierres 63 y/o M admitted on 03/16/19 for Fever. Chief Complaint: [] Interval history: Pt feels much better. Denied any fever, chills, SOB, n/v, diarrhea. Sitting in chair. Denied any other symptoms. Objective Objective Narrative: ao x 3, in nad no thrush chest cta s1 s2 normal, 2/6 ssystolic murmur at Lt 2nd ICS AVF with good thrill 1+ pitting edema Has scabs over both legs, left hands; none appear infected - Vital Signs Vital signs: Vital Signs Temp Pulse Pulse Resp BP BP Pulse Ox 03/18/19 12:49 78 16 03/18/19 11:33 36.5 C 81 16 125/68 98 03/18/19 08:04 83 18 03/18/19 07:54 36.6 C 138/86 03/18/19 06:45 83 18 03/18/19 03:50 35.9 C L 18 123/65 94 03/17/19 22:55 129/57 03/17/19 21:04 121/76 03/17/19 20:48 36.6 C 20 129/52 93 03/17/19 20:31 130/53 03/17/19 20:16 125/49 03/17/19 20:08 36.9 C 82 24 H 141/58 98 03/17/19 20:04 141/58 03/17/19 20:01 119/36 03/17/19 19:46 111/37 03/17/19 19:31 112/51 03/17/19 19:17 124/44 03/17/19 19:01 133/56 03/17/19 18:46 95/75 03/17/19 18:35 84 18 03/17/19 18:32 122/53 03/17/19 18:17 127/61 03/17/19 18:01 135/61 03/17/19 17:46 120/61 03/17/19 17:32 124/47 03/17/19 17:17 133/52 03/17/19 17:02 125/52 03/17/19 16:47 127/57 03/17/19 16:31 123/48 03/17/19 16:16 118/52 03/17/19 14:01 118/56 03/17/19 13:46 102/50 03/17/19 13:31 114/58 03/17/19 13:28 109/50 03/17/19 13:16 36.0 C L 74 136/74 03/17/19 13:05 73 18 03/17/19 13:03 118/54 03/17/19 12:59 72 118/54 Intake and Output 03/17/19 03/18/19 03/18/19 21:59 05:59 13:59 Intake Total 660 290 Balance 660 290 Intake: IV 300 50 Vancomycin 1,000 mg In Sodium 250 Chloride 0.9% 250 ml @ 250 mls/ hr IV ONCE ONE Rx#:[id number] Rocephin 2 gm In Dextrose 5% in 50 50 Water 50 ml @ 100 mls/hr IV Q24H [facility] Rx#:[id number] Oral 360 240 Other: Meal Lunch Breakfast Percent of Meal Consumed 100% 100% Feeding Ability Assist with Tray Set Up Stool Size Moderate Stool Color Brown Stool Consistency Dry and Hard Weight 107.32 kg Intake & Output: Intake & Output 03/17/19 03/18/19 03/18/19 21:59 05:59 13:59 Intake Total 660 290 Balance 660 290 Weight 107.32 kg Intake: IV 300 50 Vancomycin 1,000 mg In Sodium 250 Chloride 0.9% 250 ml @ 250 mls/ hr IV ONCE ONE Rx#:[id number] Rocephin 2 gm In Dextrose 5% in 50 50 Water 50 ml @ 100 mls/hr IV Q24H [facility] Rx#:[id number] Oral 360 240 Other: Meal Lunch Breakfast Percent of Meal Consumed 100% 100% Feeding Ability Assist with Tray Set Up Stool Size Moderate Stool Color Brown Stool Consistency Dry and Hard - Lab 03/18/19 03:35 03/18/19 03:35 Most recent lab results Calcium 7.9 mg/dl (8.6-10.4) L 03/18/19 03:35 Phosphorus 3.6 mg/dL (2.7-4.5) 03/18/19 03:35 Magnesium 2.1 mg/dL (1.6-2.5) 03/18/19 03:35 Microbiology 03/17/19 09:16 Blood Blood Culture - Preliminary 03/17/19 09:09 Blood Blood Culture - Preliminary 03/16/19 09:30 Blood Blood Culture - Preliminary 03/17/19 08:41 Sputum - Expectorated Gram Stain - Final 03/17/19 08:41 Sputum - Expectorated Sputum Culture - Final 03/16/19 08:34 Blood Blood Culture - Preliminary Gram positive cocci 03/16/19 10:38 Nose - Both Right and Left MRSA (PCR) - Final 03/16/19 08:41 Sputum - Expectorated Gram Stain - Final 03/16/19 08:41 Sputum - Expectorated Sputum Culture - Final Medications Active Medications: Acetaminophen (Tylenol) 650 mg PO Q6HP PRN PRN Reason: PAIN/FEVER > 101 Albuterol/Ipratropium (Duoneb) 3 ml NEB Q6HRT [facility] Last Admin: 03/18/19 12:46 Dose: 3 ml Documented by: HGILTNER Allopurinol (Zyloprim) 50 mg PO QDAY [facility] Amiodarone HCl (Cordarone) 50 mg PO QAMCC [facility] Amlodipine Besylate (Norvasc) 2.5 mg PO DAILY [facility] Atorvastatin Calcium (Lipitor) 20 mg PO HS [facility] Calcium Acetate (Phoslo) 667 mg PO TIDCC [facility] Last Admin: 03/18/19 11:27 Dose: 667 mg Documented by: [email or web address] Dextrose (Dextrose 50%) 0 ml IV UD PRN PRN Reason: Hypoglycemia Diagnostic Test (Pha) (Accu-Chek) 1 each FS ACHS [facility] Last Admin: 03/18/19 11:26 Dose: 1 each Documented by: [email or web address] Duloxetine HCl (Cymbalta) 60 mg PO DAILY [facility] Furosemide (Lasix) 160 mg PO BID [facility] Gabapentin (Neurontin) 300 mg PO DAILY [facility] Glucose (Insta-Glucose) 15 gm PO PRN PRN PRN Reason: Hypoglycemia Hydromorphone HCl (Dilaudid) 4 mg PO Q4HP PRN PRN Reason: PAIN LEVEL 3-6 Last Admin: 03/18/19 11:35 Dose: 4 mg Documented by: [email or web address] Ceftriaxone Sodium 2 gm/ (Dextrose) 50 mls @ 100 mls/hr IV DAILY [facility]; Protocol Insulin Glargine (Lantus) 55 unit SQ HS [facility] Insulin Human Lispro (Humalog) 0 unit SQ ACHS [facility]; Protocol Last Admin: 03/18/19 11:27 Dose: 6 units Documented by: [email or web address] Losartan Potassium (Cozaar) 50 mg PO QDAY [facility] Multivit/Ca Carb/B Cmplx/FA/Prenat (Diatx) 1 tab PO QDAY [facility] Naloxone HCl (Narcan) 0.1 mg IV Q2MIN PRN PRN Reason: Opiate Reversal Ondansetron HCl (Zofran) 4 mg IV Q4HP PRN PRN Reason: Nausea And Vomiting Pantoprazole Sodium (Protonix) 40 mg PO QAMAC [facility] Latanoprost 0.005% (Eye Drop) 1 dose OU HS [facility] Pramipexole Dihydrochloride (Mirapex) 0.25 mg PO HS [facility] Sevelamer Carbonate (Renvela) 2,400 mg PO TIDCC [facility] Last Admin: 03/18/19 11:27 Dose: 2,400 mg Documented by: [email or web address] Sodium Chloride (Saline Flush) 10 ml IV Q8 [facility] Timolol Maleate (Timoptic 0.5% Ophth Drops) 1 gtt OD BID [facility] Warfarin Sodium (Coumadin) 7.5 mg PO ONCE@1400 ONE Stop: 03/18/19 14:01 Warfarin Sodium (Coumadin Per Pharmacy) 1 order PO UD [facility] Assessment and Plan - Narrative A/P Narrative: A: 1. Viridans Streptococcal bacteremia: Streptococcus species growing from 2 bottles of 2 different sets [neg for Staph aureus, Strept pneumo, Gp A Strept, Strept anginosus, Enterococcus on verigene] - 1st neg blood Cx so far are from 03/17 - Pt meets 3 minor of Modified Hall criteria ---> Possible IE. A JOSE is optimal imaging to r/o IE - no sepsis - likely source is skin wounds as in (3) 2. ESRD on HD: - volume overload at admisssion with pulm edema, now resolved with improvement in serial CXR (admission vs today) 3. Lt hand superficial wounds: no signs of active infection Recommendations: - Continue IV Ceftriaxone 2 gm q24 hrs, day 2 - consider JOSE to r/o IE. Could be done as OP over next few days - will await final ID and sensi before deciding final choice of therapy. Most likely Cefazolin after HD as 2 gm on Saturday, 2 gm on Saturday and 3 gm on Saturday could be considered. Duration based on JOSE results - pt at high risk for aspiration given his swallowing issues. agree with Ba swallow scheduled over next few days & HOB elev at all times, and for 30 min after meals will follow Raheem Acevedo MD Infectious diseases
[2019-03-18] MEDS ORDERED: WARFARIN 7.5 MG TABLET PO ONE (14:00)
[2019-03-18] MEDS: ATORVASTATIN 20 MG TABLET PO SCH (20:37)
[2019-03-18] MEDS: PRAMIPEXOLE 0.25 MG TABLET PO SCH (20:37)
[2019-03-18] MEDS: INSULIN GLARGINE, HUMAN 1 UNIT/0.01 ML SQ SCH (20:44)
[2019-03-19] MEDS: IPRATROPIUM/ALBUTEROL 3 ML AMPUL.NEB NEB SCH ×4 (01:44→19:15)
[2019-03-19] MEDS: 0.9 % SODIUM CHLORIDE 10 ML SYRINGE IV SCH ×3 (05:40→20:46)
[2019-03-19 06:48] LABS: INR 1.5 (0.9-1.1); Prothrombin Time 17.9 sec (11.9-14.5)
[2019-03-19 07:08] LABS: Basophils # (Auto) 0 K/mcL (0.0-0.3); Basophils % (Auto) 0.1 % (0.0-2.0); Eosinophils # (Auto) 0.3 K/mcL (0.0-0.7); Eosinophils % (Auto) 2.3 % (0.0-7.0); Granulocytes % (Auto) 86.5 % (38.0-78.0); Hematocrit 32.4 % (41.0-55.0); Hemoglobin 10.2 g/dL (13.5-16.5); Lymphocytes # (Auto) 0.8 K/mcL (1.5-4.8); Lymphocytes % (Auto) 6.3 % (15.5-49.0); Mean Cell Volume 87.7 fL (80.0-100.0); Mean Corpuscular HGB Conc 31.5 g/dL (31.0-36.0); Mean Platelet Volume 8.3 fL (7.4-10.4); Monocytes # (Auto) 0.6 K/mcL (0.1-0.9); Monocytes % (Auto) 4.8 % (1.0-12.0); Platelet Count 299 K/mcL (140-440); RBC 3.69 M/mcL (4.50-5.90); Red Cell Distribution Width 17.2 % (11.5-14.5); WBC 13.5 K/mcL (4.5-11.0)
[2019-03-19] MEDS: INSULIN LISPRO 1 UNIT/0.01 ML UNIT SQ SCH ×4 (07:13→20:36)
--- NOTE | 2019-03-19 07:46 | Nephrology Progress Note ---
Subjective Patient information: Note initiated : 03/19/19 at 7:44 am Patient: Delonte Gutierres 63 y/o M admitted on 03/16/19 for Fever. Chief Complaint: Weakness Pertinent ROS: Weakness Feels better Objective - Vital Signs Vital signs: Vital Signs Temp Pulse Pulse Resp BP BP Pulse Ox 03/19/19 07:27 102 H 18 90 03/19/19 07:20 98.6 F 68 18 133/68 87 L 03/19/19 03:58 97.9 F 88 16 142/67 93 03/19/19 01:45 72 16 03/18/19 23:34 97.2 F 67 15 130/72 90 03/18/19 20:00 97.2 F 66 20 146/68 93 03/18/19 18:53 78 20 03/18/19 16:00 97.4 F 67 20 135/67 95 03/18/19 12:49 78 16 03/18/19 11:33 97.7 F 81 16 125/68 98 03/18/19 08:04 83 18 03/18/19 07:54 97.8 F 138/86 Intake and Output 03/18/19 03/19/19 03/19/19 21:59 05:59 13:59 Intake Total 240 1220 Output Total 0 Balance 240 1220 Intake: Oral 240 1220 Output: Void Amount 0 Other: Meal Dinner Percent of Meal Consumed 100% # Voids 1 # Bowel Movements 1 Weight 245 lb Intake & Output: Intake & Output 03/18/19 03/19/19 03/19/19 21:59 05:59 13:59 Intake Total 240 1220 Output Total 0 Balance 240 1220 Weight 245 lb Intake: Oral 240 1220 Output: Void Amount 0 Other: Meal Dinner Percent of Meal Consumed 100% # Voids 1 # Bowel Movements 1 - General Appearance General appearance: chronically ill, fatigue EENT: mucous membranes moist Neck: supple Respiratory: clear Cardiology: edema Gastrointestinal: no tenderness Integumentary: warm and dry Neurologic: no focal deficit, alert and oriented x3 Musculoskeletal: deformities Psychiatric: mood/affect appropriate, cooperative - Lab 03/19/19 03:55 03/18/19 03:35 Most recent lab results Calcium 7.9 mg/dl (8.6-10.4) L 03/18/19 03:35 Phosphorus 3.6 mg/dL (2.7-4.5) 03/18/19 03:35 Magnesium 2.1 mg/dL (1.6-2.5) 03/18/19 03:35 Assessment and Plan (1) ESRD (end stage renal disease) on dialysis Delonte Gutierres is a 63-year-old male with end-stage renal disease on chronic hemodialysis (at [facility], on [facility]), referred to ED from dialysis unit for fever and admitted for sepsis from bacteremia. End-stage renal disease on chronic hemodialysis. Progress: Hemodialysis on 03/16/19 and 03/17/19. Chronic anemia due to ESRD. Gram positive bacteremia; anticipate IV antibiotics and JOSE as outpatient. Plan: Hemodialysis as outpatient if discharged today on and Saturday then [facility]. Status: Chronic Priority: Medium (2) Anemia due to end stage renal disease Please see above Status: Chronic Priority: Medium
[2019-03-19 07:58] LABS: ALT/SGPT 13 U/l (0-40); AST/SGOT 17 U/l (0-37); Albumin 3.4 gm/dL (3.2-5.2); Alkaline Phosphatase 94 U/L (39-117); Bilirubin,Direct < 0.2 mg/dL (0.0-0.3); Bilirubin,Total 0.2 mg/dL (0.0-1.0); Blood Urea Nitrogen 37 mg/dl (8-23); Carbon Dioxide 27 mmol/L (22-30); Chloride 92 mmol/L (96-108); Globulin 3.5 gm/dL (2.2-3.7); Glomerular Filtration Rate 11; Glucose 101 mg/dL (70-105); Lactate Dehydrogenase 267 U/L (94-250); Phosphorous 4.5 mg/dL (2.7-4.5); Triglycerides 132 mg/dl (<150); Uric Acid 3.9 mg/dL (2.5-8.0)
[2019-03-19] MEDS: AMIODARONE HCL 200 MG TABLET PO SCH (08:05)
[2019-03-19] MEDS: FUROSEMIDE 80 MG TABLET PO SCH ×2 (08:06→20:36)
[2019-03-19] MEDS: GABAPENTIN 300 MG CAPSULE PO SCH (08:07)
[2019-03-19] MEDS: DULoxetine 30 MG CAPSULE PO SCH (08:07)
[2019-03-19] MEDS: PANTOPRAZOLE 40 MG TABLET PO SCH (08:08)
[2019-03-19] MEDS: amLODIPine 5 MG TABLET PO SCH (08:08)
[2019-03-19] MEDS: LOSARTAN 50 MG TABLET PO SCH (08:09)
[2019-03-19] MEDS: FOLIC ACID/VITAMIN B COMP W-C 1 TAB TABLET PO SCH (08:09)
[2019-03-19] MEDS: CALCIUM ACETATE 667 MG CAPSULE PO SCH ×3 (08:09→17:35)
[2019-03-19] MEDS: ALLOPURINOL 100 MG TABLET PO SCH (08:10)
[2019-03-19] MEDS: SEVELAMER 800 MG TABLET PO SCH ×3 (08:10→17:16)
[2019-03-19] MEDS ORDERED: cefTRIAXone 2 GM in DEXTROSE 5% IN WATER 50 ML IV SCH (09:00)
[2019-03-19] MEDS ORDERED: VANCOMYCIN PER PHARMACY IV SCH (09:47)
[2019-03-19] MEDS: TIMOLOL 0.5% OPHTH DROPS BOTTLE 5ML OD SCH ×2 (10:12→20:39)
--- NOTE | 2019-03-19 11:35 | Internal Med Progress Note ---
Medical - PN: Subj Patient information: Note initiated : 03/19/19 at 11:32 am Service Date, if different from initiated Date: [] Patient: Delonte Gutierres a 63 y/o M admitted on 03/16/19 for Fever. Chief Complaint: [] Interval history: Mr. Gutierres is a 63 year old M with multiple medical issues, presents to the emergency room today from dialysis unit for evaluation of fever. The patient did not have dialysis. The patient woke up at around 3 AM this morning for his regular dialysis session, his noticed that he had a low-grade temperature and given some aspirin. He showed up to the dialysis center and they noted that he had a fever, and they sent him to the emergency room for evaluation. The patient admits to having some chronic cough that has been bothering him for the last 2 months, he has some difficulty in swallowing and notes that food does get stuck in his esophagus, he does have some nausea and reflux disease secondary to this. He has scheduled GI follow-up for further evaluation of this issue. The patient has no chest pain, nonproductive cough, does have some shortness of breath, but no wheezing. He has nausea secondary to his GI issues no vomiting no abdominal pain no bowel bladder complaints. No new joint pains, he does have chronic wounds and scabs all over his body, he does have a wound on his left hand which he believes is new, denies any acute trauma to that hand. No evidence of infection there.The patient has chronic eye issues, I believe diabetic retinopathy and is followed by ophthalmology for same. On presenting to the emergency room he had a low-grade temperature 99.5, 100.51 rectal, heart rate around 90 blood pressure 130/76 saturating 83% on room air. He uses BiPAP at night otherwise no oxygen needs. Labs showed a white count of 19,400 hemoglobin 9.7 platelets 96 lactic acid 1.2 chemistry relevant for potassium of 6.1 bicarb of 24 creatinine of 8 glucose 160 procalcitonin 0.74 chest x-ray shows pneumonia predominantly on the right side but there are some infiltrates on the left official read is pending Patient is given Rocephin azithromycin and clindamycin in the emergency room, and admitted to the hospital for further management nephrology has been consulted from the emergency room Blood cultures were not drawn prior to antibiotic administration 03/17 Patient seen and examined, no acute overnight events. Doing well. Had hemodialysis yesterday, potassium still elevated today. Patient is on spironolactone. I reviewed this with the generator worker who advised to not continue this medication. Will stop spironolactone. Patient's blood cultures in 1 bottle is positive, gene isolation pending, patient is on vancomycin and Zosyn. Clinically improving Patient does not want to be on a cardiac diet I will remove his restrictions 03/18 Patient seen and examined, no acute overnight events. Potassium is less than 5 today. We will transfer the patient to [facility]. X-ray chest was done yesterday resolving infiltrate versus possible CHF. Blood cultures are negative so far Isolation and sensitivity of the Streptococcus is pending patient has been transitioned to Rocephin as per ID recommendations. Transesophageal echo has been advised by the infectious disease marine consultant which cannot be done in this facility. This will be done as an outpatient if possible and the patient can follow-up with the infectious disease clinic Transthoracic echo report is pending yet if it shows vegetations then the transesophageal echo would be a moot point. Patient is an AP with a dysphagia diet, he says he has no issues with swallowing. I will change his diet to renal carb consistent diet with no dysphagia restrictions 03/19 Patient seen and examined no acute overnight events sitting comfortably in the chair Glucose values well control Patient is growing Streptococcus which is resistant to ceftriaxone Started on vancomycin ID helping management with antibiotics Patient to get dialysis today Clear discharge tomorrow will need to be discharged early in the morning as patient is scheduled for an outpatient transesophageal echocardiogram at 9 AM at [facility] Pertinent ROS: Denies headache, dizziness Denies chest pain, palpitations Denies cough or shortness of breath Denies abdominal pain, nausea or vomiting. - Constitutional Vitals: Vital Signs Temp Pulse Resp BP Pulse Ox 98.6 F 102 H 18 133/68 90 03/19/19 07:20 03/19/19 07:27 03/19/19 07:27 03/19/19 07:20 03/19/19 07:27 Period Temp Pulse Resp BP Sys/Michael Pulse Ox Last 24 Hr 97.2 F-98.6 F 66-102 15-20 125-146/67-72 87-98 Intake and Output 03/18/19 03/19/19 03/19/19 21:59 05:59 13:59 Intake Total 240 1220 240 Output Total 0 225 Balance 240 1220 15 Weight 245 lb Intake & Output: Intake & Output 03/18/19 03/19/19 03/19/19 21:59 05:59 13:59 Intake Total 240 1220 240 Output Total 0 225 Balance 240 1220 15 Weight 245 lb Intake: Oral 240 1220 240 Output: Void Amount 0 225 Other: Meal Dinner Breakfast Percent of Meal Consumed 100% 75% Feeding Ability Independent Urine Appearance Clear Urine Color Dark Laurita # Voids 1 # Bowel Movements 1 Exam: Constitutional; Afebrile, cooperative, alert, not in distress. Respiratory system: Air Entry equal on both sides, No crackles or wheezing, no rhonchi. CVS- Rate rhythm regular, S1,S2 heard, no gallop, no rub. Abdomen- Soft nontender abdomen, no organomegaly, no tenderness, no guarding or rigidity, [employer] ATTENDANT- AOOx3, moving all extremities, no gross focal deficit noted. Medical - PN: Obj Da - Labs CBC & Chem 7: 03/19/19 03:55 03/19/19 03:55 Labs: Abnormal Lab Results 03/19/19 03/19/19 03/19/19 03:55 03:55 03:55 WBC 13.5 H RBC 3.69 L Hgb 10.2 L Hct 32.4 L RDW 17.2 H Gran % 86.5 H Lymph % (Auto) 6.3 L Gran # 11.7 H Lymph # (Auto) 0.8 L PT 17.9 H INR 1.5 H Potassium Chloride 92 L Carbon Dioxide BUN 37 H Creatinine 5.2 H* Glucose Calcium 8.0 L Phosphorus Lactate Dehydrogenase 267 H Albumin Albumin/Globulin Ratio 03/18/19 03/18/19 03/18/19 03:35 03:35 03:35 WBC RBC 3.35 L Hgb 9.2 L Hct 29.4 L RDW 17.4 H Gran % Lymph % (Auto) 13.3 L Gran # Lymph # (Auto) 1.2 L PT 21.5 H INR 1.9 H Potassium Chloride Carbon Dioxide BUN 25 H Creatinine 3.7 H Glucose 42 L Calcium 7.9 L Phosphorus Lactate Dehydrogenase 282 H Albumin 3.1 L Albumin/Globulin Ratio 03/17/19 03/17/19 03/17/19 03:45 03:45 03:45 WBC RBC 3.06 L Hgb 8.6 L Hct 26.7 L RDW 17.4 H Gran % 83.7 H Lymph % (Auto) 7.7 L Gran # 9.0 H Lymph # (Auto) 0.8 L PT 31.8 H INR 3.1 H Potassium 5.6 H Chloride Carbon Dioxide 21 L BUN 35 H Creatinine 5.1 H* Glucose 313 H Calcium 7.3 L Phosphorus 4.6 H Lactate Dehydrogenase Albumin 2.8 L Albumin/Globulin Ratio 0.9 L Meds: Medications Acetaminophen (Tylenol) 650 mg PO Q6HP PRN PRN Reason: PAIN/FEVER > 101 Albuterol/Ipratropium (Duoneb) 3 ml NEB Q6HRT [facility] Last Admin: 03/19/19 07:26 Dose: 3 ml Documented by: Allopurinol (Zyloprim) 50 mg PO QDAY [facility] Last Admin: 03/19/19 08:10 Dose: 50 mg Documented by: Amiodarone HCl (Cordarone) 50 mg PO QAMCC [facility] Last Admin: 03/19/19 08:05 Dose: 50 mg Documented by: Amlodipine Besylate (Norvasc) 2.5 mg PO DAILY [facility] Last Admin: 03/19/19 08:08 Dose: 2.5 mg Documented by: Atorvastatin Calcium (Lipitor) 20 mg PO HS [facility] Last Admin: 03/18/19 20:37 Dose: 20 mg Documented by: Calcium Acetate (Phoslo) 667 mg PO TIDCC [facility] Last Admin: 03/19/19 08:09 Dose: 667 mg Documented by: Dextrose (Dextrose 50%) 0 ml IV UD PRN PRN Reason: Hypoglycemia Diagnostic Test (Pha) (Accu-Chek) 1 each FS ACHS [facility] Last Admin: 03/19/19 07:13 Dose: 1 each Documented by: Duloxetine HCl (Cymbalta) 60 mg PO DAILY [facility] Last Admin: 03/19/19 08:07 Dose: 60 mg Documented by: Furosemide (Lasix) 160 mg PO BID [facility] Last Admin: 03/19/19 08:06 Dose: 160 mg Documented by: Gabapentin (Neurontin) 300 mg PO DAILY [facility] Last Admin: 03/19/19 08:07 Dose: 300 mg Documented by: Glucose (Insta-Glucose) 15 gm PO PRN PRN PRN Reason: Hypoglycemia Hydromorphone HCl (Dilaudid) 4 mg PO Q4HP PRN PRN Reason: PAIN LEVEL 3-6 Last Admin: 03/18/19 20:36 Dose: 4 mg Documented by: Insulin Glargine (Lantus) 55 unit SQ [facility] Last Admin: 03/18/19 20:44 Dose: 55 units Documented by: Insulin Human Lispro (Humalog) 0 unit SQ [facility]; Protocol Last Admin: 03/19/19 07:13 Dose: Not Given Documented by: Losartan Potassium (Cozaar) 50 mg PO QDAY [facility] Last Admin: 03/19/19 08:09 Dose: 50 mg Documented by: Multivit/Ca Carb/B Cmplx/FA/Prenat (Diatx) 1 tab PO QDAY [facility] Last Admin: 03/19/19 08:09 Dose: 1 tab Documented by: Naloxone HCl (Narcan) 0.1 mg IV Q2MIN PRN PRN Reason: Opiate Reversal Nystatin (Nystatin) 500,000 units SSP QID [facility] Ondansetron HCl (Zofran) 4 mg IV Q4HP PRN PRN Reason: Nausea And Vomiting Pantoprazole Sodium (Protonix) 40 mg PO QAMAC [facility] Last Admin: 03/19/19 08:08 Dose: 40 mg Documented by: Latanoprost 0.005% (Eye Drop) 1 dose OU [facility] Last Admin: 03/18/19 20:44 Dose: Not Given Documented by: Pramipexole Dihydrochloride (Mirapex) 0.25 mg PO [facility] Last Admin: 03/18/19 20:37 Dose: 0.25 mg Documented by: Sevelamer Carbonate (Renvela) 2,400 mg PO TIDCC [facility] Last Admin: 03/19/19 08:10 Dose: 2,400 mg Documented by: Sodium Chloride (Saline Flush) 10 ml IV Q8 [facility] Last Admin: 03/19/19 05:40 Dose: 10 ml Documented by: Timolol Maleate (Timoptic 0.5% Ophth Drops) 1 gtt OD BID [facility] Last Admin: 03/19/19 10:12 Dose: 1 gtt Documented by: Vancomycin HCl (Vancomycin Per Pharmacy) 1 order IV ONCE ONE; Protocol Stop: 03/19/19 09:48 Warfarin Sodium (Coumadin Per Pharmacy) 1 order PO UD [facility] Medical - PN: A/P - Time Spent With Patient Total time spent is greater than 50% in coordination of care (as documented) at patient's floor/unit and/or counseling patient: - Narrative A/P Narrative: A/P Acute hypoxic Respiratory Failure (resolved, pt on room air) Health care associated Pneumonia DM with vascular complications Diabetic Retinopathy S/p BKA Skin wounds Diabetic Retinopathy HTN ESRD on HD HLD CAD s/p CABG Mitral Valve replacement Chronic Anticoagulation Sepsis, per SIRS criteria Hyperkalemia Chronic Gout Chronic wounds Gram-positive bacteremia, Streptococcus Paroxysmal atrial fibrillation, rate controlled patient is on chronic Coumadin anticoagulation for this reason Plan nephrology consulted for HD, Discontinue Aldactone IV vancomycin for now, discontinue Rocephin as Streptococcus is resistant to Streptococcus Get echocardiogram to evaluate valves, negative, transesophageal echo scheduled for 9 AM tomorrow Repeat blood cultures drawn are negative growth so far SSI insulin for glucose control, increase the dose of Lantus from 40 at bedtime to 55 at bedtime. Patient is home dose is 55 units I am not sure the patient will be able to tolerate that dose will gradually increase back to his home dose Resumed cardiac meds check inr, Coumadin management per pharmacy cover wounds with guaze, DVT on coumadin, INR subtherapeutic for now dose adjusted by pharmacy Full code Cardiac, renal, carb consistent diet. Medical - PN: Qual - Stroke Symptom Onset Unknown: No - VTE Deep Vein Thrombosis/Pulmonary Embolism Present on Admission: No
--- NOTE | 2019-03-19 13:16 | Discharge Summary ---
Medical - DS: Prov Patient information: Note initiated : 03/19/19 at 1:14 pm Service Date, if different from initiated Date: [] Patient: Delonte Gutierres 63 y/o M admitted on 03/16/19 for Fever. Chief Complaint: [] Date of admission: 03/16/19 09:00 Discharge date: 03/20/19 Consults: 03/16/19 Consult to Physician [CONS] Stat Comment: Consulting Provider: Sridevi Ferris Reason For Exam: Physician to Consult 03/16/19 08:00 Consult to Physician [CONS] Stat Comment: Consulting Provider: Miri Rivera Reason For Exam: Physician to Consult 03/17/19 10:40 Consult to Infectious Disease [CONS] Routine Comment: Consulting Provider: Raheem Acevedo Reason For Exam: Physician to Consult Medical - DS: Meds - Discharge Medications Prescriptions: Vancomycin 2 gm IV Q48H #1 vial Active and Home Medications: Home Medications insulin U- 100 regular human 100 unit/mL injection solution See Dose Instructions SUB-Q .COMPLEX ml 02/10/15 [History Confirmed 03/16/19 Last Taken 11/02/16] insulin glargine (U- 100) 100 unit/mL subcutaneous solution 55 unit SUB-Q BID ml 01/03/16 [History Confirmed 03/16/19 Last Taken 11/02/16] amLODIPine [Norvasc] 2.5 mg PO DAILY 05/24/17 [History Confirmed 03/16/19 Last Taken 03/16/19 03:30] allopurinol 100 mg tablet 50 mg PO QDAY 90 Days #45 tab 10/21/18 [Rx Confirmed 03/16/19 Last Taken 03/16/19 03:30] losartan 50 mg tablet 50 mg PO QDAY #90 tab 10/21/18 [Rx Confirmed 03/16/19 Last Taken 03/16/19 03:30] DULoxetine HCL [Cymbalta] 60 mg PO DAILY 11/24/18 [History Confirmed 03/16/19 Last Taken 03/16/19 03:30] Furosemide [Lasix] 160 mg PO BID 11/24/18 [History Confirmed 03/16/19 Last Taken 03/16/19 03:30] Latanoprost/Pf [Latanoprost 0.005% Eye Drop] 1 gtt OU HS 11/24/18 [History Confirmed 03/16/19 Last Taken 03/15/19 20:00] Ranitidine HCl [Heartburn Relief] 150 mg PO BID 11/24/18 [History Confirmed 03/16/19 Last Taken 03/16/19 03:30] Sevelamer HCl [Renagel] 2,400 mg PO TIDCC 11/24/18 [History Confirmed 03/16/19 Last Taken Unknown] vitamin B complex-vitamin C-folic acid 0.8 mg tablet 1 tab PO QDAY #30 tab 02/16/19 [Rx Confirmed 03/16/19 Last Taken 03/16/19 03:30] Amiodarone HCl [Pacerone] 50 mg PO DAILY 03/16/19 [History Confirmed 03/16/19 Last Taken 03/16/19 03:30] Calcium Acetate [Calphron] 667 mg PO TIDCC 03/16/19 [History Confirmed 03/16/19 Last Taken 03/16/19 03:30] Gabapentin [Neurontin] 300 mg PO DAILY 03/16/19 [History Confirmed 03/16/19 Last Taken 03/16/19 03:30] HYDROmorphone [Dilaudid] 4 mg PO Q4HP PRN 03/16/19 [History Confirmed 03/16/19 Last Taken Unknown] Pramipexole Di-HCl [Pramipexole Dihydrochloride] 0.25 mg PO HSP PRN 03/16/19 [History Confirmed 03/16/19 Last Taken Unknown] Rosuvastatin [Crestor] 10 mg PO HS 03/16/19 [History Confirmed 03/16/19 Last Taken Unknown] Semaglutide (Ozempic) 0.5 mg SC TU 03/16/19 [History Confirmed 03/16/19 Last Taken Unknown] Spironolactone [Aldactone] 25 mg PO DAILY 03/16/19 [History Confirmed 03/16/19 Last Taken Unknown] Timolol 0.5% Ophth Drops [Timoptic 0.5% Ophth Drops] 1 gtt OD BID 03/16/19 [History Confirmed 03/16/19 Last Taken 03/16/19 03:30] Warfarin [Coumadin] 7.5 mg PO SUMOWEFRSA 03/16/19 [History Confirmed 03/16/19 Last Taken 07/22/19 03:30] Warfarin [Coumadin] 10 mg PO TUTH 03/16/19 [History Confirmed 03/16/19 Last Taken Unknown] Medical - DS: Hosp Hospital course: Mr. Gutierres is a 63 year old M Mr. Gutierres is a 63 year old M with multiple medical issues, presents to the emergency room today from dialysis unit for evaluation of fever. The patient did not have dialysis. The patient woke up at around 3 AM this morning for his regular dialysis session, his noticed that he had a low-grade temperature and given some aspirin. He showed up to the dialysis center and they noted that he had a fever, and they sent him to the emergency room for evaluation. The patient admits to having some chronic cough that has been bothering him for the last 2 months, he has some difficulty in swallowing and notes that food does get stuck in his esophagus, he does have some nausea and reflux disease secondary to this. He has scheduled GI follow-up for further evaluation of this issue. The patient has no chest pain, nonproductive cough, does have some shortness of breath, but no wheezing. He has nausea secondary to his GI issues no vomiting no abdominal pain no bowel bladder complaints. No new joint pains, he does have chronic wounds and scabs all over his body, he does have a wound on his left hand which he believes is new, denies any acute trauma to that hand. No evidence of infection there.The patient has chronic eye issues, I believe diabetic retinopathy and is followed by ophthalmology for same. On presenting to the emergency room he had a low-grade temperature 99.5, 100.51 rectal, heart rate around 90 blood pressure 130/76 saturating 83% on room air. He uses BiPAP at night otherwise no oxygen needs. Labs showed a white count of 19,400 hemoglobin 9.7 platelets 96 lactic acid 1.2 chemistry relevant for potassium of 6.1 bicarb of 24 creatinine of 8 glucose 160 procalcitonin 0.74 chest x-ray shows pneumonia predominantly on the right side but there are some infiltrates on the left official read is pending Patient is given Rocephin azithromycin and clindamycin in the emergency room, and admitted to the hospital for further management nephrology has been consulted from the emergency room Blood cultures were not drawn prior to antibiotic administration 03/17 Patient seen and examined, no acute overnight events. Doing well. Had hemodialysis yesterday, potassium still elevated today. Patient is on spironolactone. I reviewed this with the hand ii thermal cutter who advised to not continue this medication. Will stop spironolactone. Patient's blood cultures in 1 bottle is positive, gene isolation pending, patient is on vancomycin and Zosyn. Clinically improving Patient does not want to be on a cardiac diet I will remove his restrictions 03/18 Patient seen and examined, no acute overnight events. Potassium is less than 5 today. We will transfer the patient to [facility]. X-ray chest was done yesterday resolving infiltrate versus possible CHF. Blood cultures are negative so far Isolation and sensitivity of the Streptococcus is pending patient has been transitioned to Rocephin as per ID recommendations. Transesophageal echo has been advised by the infectious disease service loss control consultant which cannot be done in this facility. This will be done as an outpatient if possible and the patient can follow-up with the infectious disease clinic Transthoracic echo report is pending yet if it shows vegetations then the transesophageal echo would be a moot point. Patient is an AP with a dysphagia diet, he says he has no issues with swallowing . I will change his diet to renal carb consistent diet with no dysphagia restrictions 03/19 Patient seen and examined no acute overnight events sitting comfortably in the chair Glucose values well control Patient is growing Streptococcus which is resistant to ceftriaxone Started on vancomycin ID helping management with antibiotics Patient to get dialysis today Clear discharge tomorrow will need to be discharged early in the morning as patient is scheduled for an outpatient transesophageal echocardiogram at 9 AM at [facility] 03/20 No issues overnight. Patient will over to [facility] for further testing A/P Narrative: A/P Acute hypoxic Respiratory Failure (resolved, pt on room air) Health care associated Pneumonia DM with vascular complications Diabetic Retinopathy S/p BKA Skin wounds Diabetic Retinopathy HTN ESRD on HD HLD CAD s/p CABG Mitral Valve replacement Chronic Anticoagulation Sepsis, per SIRS criteria Hyperkalemia Chronic Gout Chronic wounds Gram-positive bacteremia, Streptococcus Paroxysmal atrial fibrillation, rate controlled patient is on chronic Coumadin anticoagulation for this reason Plan nephrology consulted for HD, Discontinue Aldactone IV vancomycin for now, discontinue Rocephin as Streptococcus is resistant to Streptococcus Get echocardiogram to evaluate valves, negative, transesophageal echo scheduled for 9 AM Saturday Repeat blood cultures drawn are negative growth so far SSI insulin for glucose control, increase the dose of Lantus from 40 at bedtime to 55 at bedtime. Patient is home dose is 55 units I am not sure the patient will be able to tolerate that dose will gradually increase back to his home dose Resumed cardiac meds check inr, Coumadin management per pharmacy cover wounds with guaze, DVT on coumadin, INR subtherapeutic for now dose adjusted by pharmacy Full code Cardiac, renal, carb consistent diet. Discharge diagnosis: Acute hypoxic respiratory failure pneumonia Streptococcus bacteremia Secondary discharge diagnosis: Diabetes diabetic retinopathy hypertension end-stage renal disease hyperlipidemia CAD sepsis hyperkalemia gout chronic wounds paroxysmal Atrial fibrillation - Time Spent with Patient Total time spent providing and/or coordinating discharge services: Greater than 30 minutes Medical - DS: Exam - Constitutional Vitals: Vital Signs Temp Pulse Pulse Resp BP BP Pulse Ox 03/19/19 13:13 97 H 142/71 03/19/19 13:00 94 H 129/73 03/19/19 12:45 88 130/66 03/19/19 12:30 100.5 F H 96 H 130/70 03/19/19 07:27 102 H 18 90 03/19/19 07:20 98.6 F 68 18 133/68 87 L 03/19/19 03:58 97.9 F 88 16 142/67 93 03/19/19 01:45 72 16 03/18/19 23:34 97.2 F 67 15 130/72 90 03/18/19 20:00 97.2 F 66 20 146/68 93 03/18/19 18:53 78 20 03/18/19 16:00 97.4 F 67 20 135/67 95 Intake and Output 03/18/19 03/19/19 03/19/19 21:59 05:59 13:59 Intake Total 240 1220 240 Output Total 0 225 Balance 240 1220 15 Intake: Oral 240 1220 240 Output: Void Amount 0 225 Other: Meal Dinner Breakfast Percent of Meal Consumed 100% 75% Feeding Ability Independent Urine Appearance Clear Urine Color Dark Laurita # Voids 1 # Bowel Movements 1 Weight 111.13 kg Medical - DS: Data Labs on day of discharge: Labs from last 24 hours 03/19/19 03/19/19 03/19/19 03:55 03:55 03:55 WBC 13.5 H RBC 3.69 L Hgb 10.2 L Hct 32.4 L MCV 87.7 MCH 27.7 MCHC 31.5 RDW 17.2 H Plt Count 299 MPV 8.3 Gran % 86.5 H Lymph % (Auto) 6.3 L [place] % (Auto) 4.8 Eos % (Auto) 2.3 Baso % (Auto) 0.1 Gran # 11.7 H Lymph # (Auto) 0.8 L [place] # (Auto) 0.6 Eos # (Auto) 0.3 Baso # (Auto) 0 PT 17.9 H INR 1.5 H Sodium 135 Potassium 4.5 Chloride 92 L Carbon Dioxide 27 Anion Gap 16.0 BUN 37 H Creatinine 5.2 H* GFR Calculation 11 Glucose 101 Uric Acid 3.9 Calcium 8.0 L Phosphorus 4.5 Magnesium 2.3 Total Bilirubin 0.2 Direct Bilirubin < 0.2 GGT 14 AST 17 ALT 13 Alkaline Phosphatase 94 Lactate Dehydrogenase 267 H Total Protein 6.9 Albumin 3.4 Globulin 3.5 Albumin/Globulin Ratio 1.0 Triglycerides 132 Preliminary micro results at discharge 03/17/19 09:16 Blood Culture - Preliminary Blood 03/17/19 09:09 Blood Culture - Preliminary Blood 03/16/19 09:30 Blood Culture - Preliminary Blood 03/16/19 08:34 Blood Culture - Preliminary Blood Gram positive cocci Medical - DS: A/P - Patient/Caregiver Discharge Instructions Activity: increase activity as tolerated Diet: Consistent Carbohydrate Prescriptions: Vancomycin 2 gm IV Q48H #1 vial - Follow up Plan Follow up with: Raheem Acevedo MD [Physician] - Miri Rivera MD [Physician] - Disposition: [facility] Prognosis: Fair Rehab Potential: Fair Medical - DS: Qual - VTE Deep Vein Thrombosis/Pulmonary Embolism Present on Admission: No
[2019-03-19] MEDS ORDERED: WARFARIN 10 MG TABLET PO ONE (14:00)
[2019-03-19] MEDS: NYSTATIN 500,000 UNITS/5 ML ORAL.SUSP SSP SCH ×3 (15:24→20:39)
[2019-03-19] MEDS ORDERED: VANCOMYCIN 2,000 MG in 0.9 % SODIUM CHLORIDE 500 ML IV ONE (17:00)
--- NOTE | 2019-03-19 17:49 | Infectious Disease Prog Note ---
Subjective Patient information: Note initiated : 03/19/19 at 5:40 pm Service Date, if different from initiated Date: [] Patient: Delonte Gutierres 63 y/o M admitted on 03/16/19 for Fever. Chief Complaint: [] Interval history: Pt doing well, denied any fever/chills, nausea/vomiting/diarrhea. Shared plan for IV Vanc with HD. JOSE scheduled for tomorrow. ID f/u appointment in 1 week Objective Objective Narrative: ao x 3, in nad + ve thrush chest at with occasional basilar crackles s1 s2 normal, 2/6 systolic murmur at Lt 2nd ICS and at cardiac apex non tender bowel, BS ++ Lt hadn superficial wounds, well scabbed - Vital Signs Vital signs: Vital Signs Temp Pulse Pulse Resp BP BP Pulse Ox 03/19/19 16:30 37.3 C H 68 94/57 03/19/19 16:15 80 109/58 03/19/19 16:00 80 105/57 03/19/19 15:45 86 108/56 03/19/19 15:30 80 114/45 03/19/19 15:15 80 94/55 03/19/19 15:00 60 125/61 03/19/19 14:45 68 113/68 03/19/19 14:30 80 109/58 03/19/19 14:15 77 107/77 03/19/19 14:00 89 104/56 03/19/19 13:45 82 106/56 03/19/19 13:30 74 103/56 03/19/19 13:15 97 H 142/71 03/19/19 13:00 94 H 129/73 03/19/19 12:45 88 130/66 03/19/19 12:30 38.1 C H 96 H 130/70 03/19/19 07:27 102 H 18 90 03/19/19 07:20 37.0 C 68 18 133/68 87 L 03/19/19 03:58 36.6 C 88 16 142/67 93 03/19/19 01:45 72 16 03/18/19 23:34 36.2 C 67 15 130/72 90 03/18/19 20:00 36.2 C 66 20 146/68 93 03/18/19 18:53 78 20 Intake and Output 03/19/19 03/19/19 03/19/19 05:59 13:59 21:59 Intake Total 1220 240 240 Output Total 0 225 4000 Balance 1220 15 -3760 Intake: Oral 1220 240 240 Output: Void Amount 0 225 Hemodialysis UF 4000 Other: Meal Breakfast Lunch Percent of Meal Consumed 75% 100% Feeding Ability Independent Independent Urine Appearance Clear Urine Color Dark Laurita Intake & Output: Intake & Output 03/19/19 03/19/19 03/19/19 05:59 13:59 21:59 Intake Total 1220 240 240 Output Total 0 225 4000 Balance 1220 15 -3760 Intake: Oral 1220 240 240 Output: Void Amount 0 225 Hemodialysis UF 4000 Other: Meal Breakfast Lunch Percent of Meal Consumed 75% 100% Feeding Ability Independent Independent Urine Appearance Clear Urine Color Dark Laurita - Lab 03/19/19 03:55 03/19/19 03:55 Most recent lab results Calcium 8.0 mg/dl (8.6-10.4) L 03/19/19 03:55 Phosphorus 4.5 mg/dL (2.7-4.5) 03/19/19 03:55 Magnesium 2.3 mg/dL (1.6-2.5) 03/19/19 03:55 Microbiology 03/17/19 09:16 Blood Blood Culture - Preliminary 03/17/19 09:09 Blood Blood Culture - Preliminary 03/16/19 09:30 Blood Blood Culture - Preliminary 03/17/19 08:41 Sputum - Expectorated Gram Stain - Final 03/17/19 08:41 Sputum - Expectorated Sputum Culture - Final 03/16/19 08:34 Blood Blood Culture - Preliminary Gram positive cocci 03/16/19 10:38 Nose - Both Right and Left MRSA (PCR) - Final 03/16/19 08:41 Sputum - Expectorated Gram Stain - Final 03/16/19 08:41 Sputum - Expectorated Sputum Culture - Final Medications Active Medications: Acetaminophen (Tylenol) 650 mg PO Q6HP PRN PRN Reason: PAIN/FEVER > 101 Albuterol/Ipratropium (Duoneb) 3 ml NEB Q6HRT LEX Last Admin: 03/19/19 13:46 Dose: Not Given Documented by: LAURA Non-Admin Reason: Unavailable Admin: 03/19/19 07:26 Dose: 3 ml Documented by: Admin: 03/19/19 01:44 Dose: 3 ml Documented by: Admin: 03/18/19 18:53 Dose: 3 ml Documented by: Admin: 03/18/19 12:46 Dose: 3 ml Documented by: LEDY Allopurinol (Zyloprim) 50 mg PO QDAY [facility] Last Admin: 03/19/19 08:10 Dose: 50 mg Documented by: ISELA Amiodarone HCl (Cordarone) 50 mg PO QAMCC [facility] Last Admin: 03/19/19 08:05 Dose: 50 mg Documented by: ISELA Amlodipine Besylate (Norvasc) 2.5 mg PO DAILY [facility] Last Admin: 03/19/19 08:08 Dose: 2.5 mg Documented by: ISELA Atorvastatin Calcium (Lipitor) 20 mg PO HS [facility] Last Admin: 03/18/19 20:37 Dose: 20 mg Documented by: ANASTASIIA Calcium Acetate (Phoslo) 667 mg PO TIDCC [facility] Last Admin: 03/19/19 17:35 Dose: 667 mg Documented by: Admin: 03/19/19 14:29 Dose: Not Given Documented by: ISELA Non-Admin Reason: no meals at this time, starting dialysis Admin: 03/19/19 08:09 Dose: 667 mg Documented by: Admin: 03/18/19 16:59 Dose: 667 mg Documented by: Admin: 03/18/19 11:27 Dose: 667 mg Documented by: MARION Dextrose (Dextrose 50%) 0 ml IV UD PRN PRN Reason: Hypoglycemia Diagnostic Test (Pha) (Accu-Chek) 1 each FS ACHS [facility] Last Admin: 03/19/19 17:09 Dose: 1 each Documented by: Admin: 03/19/19 11:42 Dose: 1 each Documented by: Admin: 03/19/19 07:13 Dose: 1 each Documented by: Admin: 03/19/19 05:41 Dose: 1 each Documented by: Admin: 03/18/19 20:43 Dose: 1 each Documented by: Admin: 03/18/19 16:59 Dose: 1 each Documented by: [email or web address] Admin: 03/18/19 11:26 Dose: 1 each Documented by: MARION Duloxetine HCl (Cymbalta) 60 mg PO DAILY [facility] Last Admin: 03/19/19 08:07 Dose: 60 mg Documented by: ISELA Furosemide (Lasix) 160 mg PO BID [facility] Last Admin: 03/19/19 08:06 Dose: 160 mg Documented by: Admin: 03/18/19 20:37 Dose: 160 mg Documented by: ANASTASIIA Gabapentin (Neurontin) 300 mg PO DAILY [facility] Last Admin: 03/19/19 08:07 Dose: 300 mg Documented by: ISELA Glucose (Insta-Glucose) 15 gm PO PRN PRN PRN Reason: Hypoglycemia Hydromorphone HCl (Dilaudid) 4 mg PO Q4HP PRN PRN Reason: PAIN LEVEL 3-6 Last Admin: 03/18/19 20:36 Dose: 4 mg Documented by: Admin: 03/18/19 11:35 Dose: 4 mg Documented by: MARION Vancomycin HCl 2,000 mg/ (Sodium Chloride) 500 mls @ 250 mls/hr IV ONCE ONE Stop: 03/19/19 18:59 Last Admin: 03/19/19 17:08 Dose: 250 mls/hr Documented by: ISELA Insulin Glargine (Lantus) 55 unit SQ [facility] Last Admin: 03/18/19 20:44 Dose: 55 units Documented by: ANASTASIIA Insulin Human Lispro (Humalog) 0 unit SQ [facility]; Protocol Last Admin: 03/19/19 17:12 Dose: Not Given Documented by: ISELA Non-Admin Reason: No Coverage Needed Admin: 03/19/19 11:42 Dose: 6 units Documented by: Admin: 03/19/19 07:13 Dose: Not Given Documented by: ISELA Non-Admin Reason: No Coverage Needed Admin: 03/18/19 20:43 Dose: 6 units Documented by: Admin: 03/18/19 16:59 Dose: 6 units Documented by: Admin: 03/18/19 11:27 Dose: 6 units Documented by: MARION Losartan Potassium (Cozaar) 50 mg PO QDAY [facility] Last Admin: 03/19/19 08:09 Dose: 50 mg Documented by: ISELA Multivit/Ca Carb/B Cmplx/FA/Prenat (Diatx) 1 tab PO QDAY [facility] Last Admin: 03/19/19 08:09 Dose: 1 tab Documented by: ISELA Naloxone HCl (Narcan) 0.1 mg IV Q2MIN PRN PRN Reason: Opiate Reversal Nystatin (Nystatin) 500,000 units SSP QID [facility] Last Admin: 03/19/19 17:35 Dose: 500,000 units Documented by: Admin: 03/19/19 15:24 Dose: 500,000 units Documented by: ISELA Ondansetron HCl (Zofran) 4 mg IV Q4HP PRN PRN Reason: Nausea And Vomiting Pantoprazole Sodium (Protonix) 40 mg PO QAMAC [facility] Last Admin: 03/19/19 08:08 Dose: 40 mg Documented by: ISELA Latanoprost 0.005% (Eye Drop) 1 dose OU HS [facility] Last Admin: 03/18/19 20:44 Dose: Not Given Documented by: ANASTASIIA Non-Admin Reason: Unavailable Pramipexole Dihydrochloride (Mirapex) 0.25 mg PO [facility] Last Admin: 03/18/19 20:37 Dose: 0.25 mg Documented by: ANASTASIIA Sevelamer Carbonate (Renvela) 2,400 mg PO TIDCC [facility] Last Admin: 03/19/19 17:16 Dose: 2,400 mg Documented by: Admin: 03/19/19 14:30 Dose: Not Given Documented by: ISELA Non-Admin Reason: ate lunch earlier, about to start dialysis Admin: 03/19/19 08:10 Dose: 2,400 mg Documented by: Admin: 03/18/19 16:59 Dose: 2,400 mg Documented by: [email or web address] Admin: 03/18/19 11:27 Dose: 2,400 mg Documented by: MARION Sodium Chloride (Saline Flush) 10 ml IV Q8 [facility] Last Admin: 03/19/19 15:25 Dose: 10 ml Documented by: Admin: 03/19/19 05:40 Dose: 10 ml Documented by: Admin: 03/18/19 20:44 Dose: 10 ml Documented by: Admin: 03/18/19 13:13 Dose: 10 ml Documented by: [email or web address] Timolol Maleate (Timoptic 0.5% Ophth Drops) 1 gtt OD BID LEX Last Admin: 03/19/19 10:12 Dose: 1 gtt Documented by: [email or web address] Admin: 03/18/19 20:44 Dose: 1 gtt Documented by: ANASTASIIA Vancomycin HCl (Vancomycin Per Pharmacy) 1 order IV UD LEX; Protocol Warfarin Sodium (Coumadin Per Pharmacy) 1 order PO UD LEX Assessment and Plan - Narrative A/P Narrative: A: 1. Strept mitis bacteremia: growing from 2 bottles of 2 different sets - resistant to IV Ceftriaxone, sens to Vanc - 1st neg blood Cx so far are from 03/17 - Pt meets 3 minor of Modified Hall criteria ---> Possible IE. A JOSE is optimal imaging to r/o IE - no sepsis - likely source is skin wounds as in (3) 2. ESRD on HD: - volume overload at admisssion with pulm edema, now resolved with improvement in serial CXR (admission vs today) 3. Lt hand superficial wounds: no signs of active infection 4. History of CABG, prosthetic mitral valve 5. Oral thrush Recommendations: -Stop IV Ceftriaxone - Start IV Vanc at 25 mg/kg of actual body weight. Subsequent IV Vanc dosing post-HD per Pharmacy with checking of pre-HD serum levels (target 10-20). - consider JOSE to r/o IE. Could be done as OP over next few days - Duration to be decided based on JOSE results [scheduled for an outpatient transesophageal echocardiogram at 9 AM at [facility]]. - pt at high risk for aspiration given his swallowing issues. agree with Ba swallow scheduled over next few days & HOB elev at all times, and for 30 min after meals - Nystatin swish and spit, [id number] U qid x 7 days will follow Raheem Acevedo MD Infectious diseases
[2019-03-19] MEDS: INSULIN GLARGINE, HUMAN 1 UNIT/0.01 ML SQ SCH (20:28)
[2019-03-19] MEDS: PRAMIPEXOLE 0.25 MG TABLET PO SCH (20:36)
[2019-03-19] MEDS: ATORVASTATIN 20 MG TABLET PO SCH (20:39)
[2019-03-19] MEDS: HYDROmorphone 2 MG TABLET PO PRN (21:56)
[2019-03-20] MEDS: IPRATROPIUM/ALBUTEROL 3 ML AMPUL.NEB NEB SCH ×2 (01:29→07:35)
[2019-03-20] MEDS: 0.9 % SODIUM CHLORIDE 10 ML SYRINGE IV SCH (05:21)
[2019-03-20 06:45] LABS: INR 1.6 (0.9-1.1); Prothrombin Time 18.5 sec (11.9-14.5)
[2019-03-20] MEDS: PANTOPRAZOLE 40 MG TABLET PO SCH (06:52)
[2019-03-20] MEDS: CALCIUM ACETATE 667 MG CAPSULE PO SCH (06:53)
[2019-03-20] MEDS: AMIODARONE HCL 200 MG TABLET PO SCH (06:53)
[2019-03-20] MEDS: SEVELAMER 800 MG TABLET PO SCH (06:53)
[2019-03-20] MEDS: LOSARTAN 50 MG TABLET PO SCH (07:54)
[2019-03-20] MEDS: DULoxetine 30 MG CAPSULE PO SCH (07:55)
[2019-03-20] MEDS: FUROSEMIDE 80 MG TABLET PO SCH (07:55)
[2019-03-20] MEDS: FOLIC ACID/VITAMIN B COMP W-C 1 TAB TABLET PO SCH (07:55)
[2019-03-20] MEDS: GABAPENTIN 300 MG CAPSULE PO SCH (07:56)
[2019-03-20] MEDS: NYSTATIN 500,000 UNITS/5 ML ORAL.SUSP SSP SCH (07:56)
[2019-03-20] MEDS: amLODIPine 5 MG TABLET PO SCH (07:56)
[2019-03-20] MEDS: ALLOPURINOL 100 MG TABLET PO SCH (07:57)
[2019-03-20] MEDS: TIMOLOL 0.5% OPHTH DROPS BOTTLE 5ML OD SCH (07:57)
[2019-03-20] MEDS: INSULIN LISPRO 1 UNIT/0.01 ML UNIT SQ SCH (07:59)
--- NOTE | 2019-03-20 17:53 | Infectious Disease Prog Note ---
Subjective Patient information: Note initiated : 03/20/19 at 5:38 pm Service Date, if different from initiated Date: [] Patient: Delonte Gutierres 63 y/o M admitted on 03/16/19 for Fever. Chief Complaint: [] Interval history: Pt feels back to baseline. Is ready for discharge. Shared ID clinic follow up plan, IV Vanc dosing after each HD and checking levels before each HD. Also shared that duration of antibiotic therapy per JOSE results. Pt and her voiced understanding. Objective Objective Narrative: ao x 3, in nad no thrush chest cta s1 s2 normal, 2/6 systolic murmur heard over 2nd ICS space and at apex bs ++ - Vital Signs Vital signs: Vital Signs Temp Pulse Pulse Resp BP Pulse Ox 03/20/19 09:00 37.1 C 86 20 124/62 94 03/20/19 07:45 84 20 93 03/20/19 07:21 36.9 C 20 118/59 93 03/20/19 03:15 36.6 C 70 16 130/52 100 03/20/19 01:32 75 20 03/20/19 00:00 36.6 C 90 18 123/59 94 03/19/19 19:16 80 14 03/19/19 19:15 80 14 91 03/19/19 18:32 36.8 C 83 18 121/71 85 L Intake and Output 03/20/19 03/20/19 03/20/19 05:59 13:59 21:59 Intake Total 760 Balance 760 Intake: Oral 760 Other: Stool Size Moderate Stool Color Brown Stool Consistency Soft Formed # Voids 1 # Bowel Movements 1 Weight 107.501 kg Intake & Output: Intake & Output 03/20/19 03/20/19 03/20/19 05:59 13:59 21:59 Intake Total 760 Balance 760 Weight 107.501 kg Intake: Oral 760 Other: Stool Size Moderate Stool Color Brown Stool Consistency Soft Formed # Voids 1 # Bowel Movements 1 - Lab 03/19/19 03:55 03/19/19 03:55 Most recent lab results Calcium 8.0 mg/dl (8.6-10.4) L 03/19/19 03:55 Phosphorus 4.5 mg/dL (2.7-4.5) 03/19/19 03:55 Magnesium 2.3 mg/dL (1.6-2.5) 03/19/19 03:55 Microbiology 03/17/19 09:16 Blood Blood Culture - Preliminary 03/17/19 09:09 Blood Blood Culture - Preliminary 03/16/19 09:30 Blood Blood Culture - Preliminary 03/17/19 08:41 Sputum - Expectorated Gram Stain - Final 03/17/19 08:41 Sputum - Expectorated Sputum Culture - Final 03/16/19 08:34 Blood Blood Culture - Preliminary Gram positive cocci 03/16/19 10:38 Nose - Both Right and Left MRSA (PCR) - Final 03/16/19 08:41 Sputum - Expectorated Gram Stain - Final 03/16/19 08:41 Sputum - Expectorated Sputum Culture - Final Assessment and Plan - Narrative A/P Narrative: A: 1. Strept mitis bacteremia: growing from 2 bottles of 2 different sets - resistant to IV Ceftriaxone, sens to Vanc - 1st neg blood Cx so far are from 03/17 - Pt meets 3 minor of Modified Hall criteria ---> Possible IE. A JOSE is optimal imaging to r/o IE - no sepsis - likely source is skin wounds as in (3) 2. ESRD on HD: - volume overload at admisssion with pulm edema, now resolved with improvement in serial CXR (admission vs at day 2) 3. Lt hand superficial wounds: no signs of active infection 4. History of CABG, prosthetic mitral valve 5. Oral thrush Recommendations: - Continue IV Vanc post-HD per Pharmacy with checking of pre-HD serum levels (target 10-20) and adjusting of the IV dose as needed to keep the blood level in range. - JOSE scheduled today after discharge to r/o IE - Duration to be decided based on JOSE results - Nystatin swish and spit, [id number] U qid x 7 days, day 2 - ID clinic follow up appointment next week Raheem Acevedo MD Infectious diseases
== END 2019-03-20 09:15 | disposition short-term general hospital (02) | DRG 193 ==
LOC: ED 04:57 → ICU 09:00
PROVIDERS: ADMIT Internal Medicine; ATTEND Internal Medicine

== ENCOUNTER 2019-07-24 09:53 | Inpatient (IN) ==
--- NOTE | 2019-07-24 10:34 | Emergency Department Note ---
Weakness HPI - General Chief complaint: Weakness Stated complaint: weakness Time Seen by Provider: 07/24/19 10:09 Source: patient Mode of arrival: wheelchair Limitations: no limitations - History of Present Illness HPI Narrative: 64-year-old comes in from dialysis where he reportedly had saturations of 67% on room air. In triage was 86%. Had been placed on 6 L per nasal cannula. He has had a recent diagnosis of pneumonia treated in the hospital. He reports feeling not well and upset stomach today. He reports being on amoxicillin when he left the hospital for 4 days. He reports having dialysis today and having 4000 cc removed. He has felt cold but no specific chills. No sweats or fevers. He does not specifically feel short of breath. He has no oxygen at home. He has a past history of cardiac resuscitation due to bradycardia that occurred with a little toe amputation ended up with three-vessel disease where he had bypass and a valve replacement, aorta, porcine. This was August 28, 2016, Dr. Lazaro Curran. REVIEW OF SYSTEMS: Denies fever, sweats. Has had some double vision chronically. Has exotropia. No sore throat. Has had a little runny nose for 2 weeks. Has some dry mouth. No chest pain Has some chronic cough. Has some phlegm production but no major change. No shortness of breath described Abdominal pain is been this morning across the abdomen. Vomited twice today. No diarrhea or constipation. Had a bowel movement last evening and this morning. No weakness. No dizziness. Denies anxiety and depression. - Related Data Home Medications Medication Instructions Recorded Confirmed DULoxetine HCL [Cymbalta] 30 mg PO DAILY 11/24/18 07/06/19 Furosemide [Lasix] 160 mg PO BID 11/24/18 07/06/19 Ranitidine HCl [Heartburn Relief] 150 mg PO BID 11/24/18 07/06/19 Gabapentin [Neurontin] 100 mg PO DAILY 03/16/19 07/06/19 Pramipexole Di-HCl [Pramipexole 0.25 mg PO HSP 03/16/19 07/06/19 Dihydrochloride] Rosuvastatin [Crestor] 10 mg PO HS 03/16/19 07/06/19 semaglutide 0.25 mg or 0.5 mg (2 0.25 mg SUB-Q WEEKLY #1 ml 03/27/19 07/06/19 mg/1.5 mL) subcutaneous pen injector sevelamer HCl 800 mg tablet 1,600 mg PO TIDCC 06/01/19 07/06/19 apixaban 2.5 mg tablet 2.5 mg PO BID tab 06/25/19 07/06/19 insulin glargine 100) 100 unit/mL 55 unit SUB-Q BID ml 06/25/19 07/06/19 subcutaneous solution Acetaminophen [Pain Relief] 325 mg PO Q4HP PRN 07/06/19 07/06/19 Aspirin [Adult Low Dose Aspirin EC] 81 mg PO DAILY 07/06/19 07/06/19 Betamethasone Dipr Oint 0.05% 1 appful TOPICAL BID 07/06/19 07/06/19 [Diprolene] Calcium Carbonate [Tums] 500 mg CHEWED 3XW PRN 07/06/19 07/06/19 Cider Vinegar [Apple Cider Vinegar] 5 ml PO QDP PRN 07/06/19 07/06/19 Folic Acid/Vit B Complex and C 1 tab PO DAILY 07/06/19 07/06/19 [Dialyvite 800 Tablet] HumaLIN N 1 unit SC BIDCC 07/06/19 07/06/19 Lubiprostone [Amitiza] 24 mcg PO DAILY 07/06/19 07/06/19 Mecobalamin [B-12] 1,000 mcg SL DAILY 07/06/19 07/06/19 Metoclopramide [Reglan] 7.5 mg PO QIDP PRN 07/06/19 07/06/19 metroNIDAZOLE [Metronidazole] 250 mg PO TID 07/06/19 07/06/19 oxyCODONE [Oxycontin] 10 mg PO BID 07/06/19 07/06/19 Previous Rx's Medication Instructions Recorded allopurinol 100 mg tablet 50 mg PO QDAY #45 tab 05/14/19 losartan 50 mg tablet 50 mg PO QDAY #90 tab 05/14/19 calcium acetate 667 mg tablet 667 mg PO .QIDCC #360 tab 06/01/19 Amoxicillin/Potassium Clav 875 mg PO Q12H #8 tab 07/09/19 [Augmentin] Allergies Allergy/AdvReac Type Severity Reaction Status Date / Time iron [IRON] Allergy Severe Anaphylaxis Verified 07/24/19 09:56 hydrocodone [From [place]] Allergy Mild Hives Verified 07/24/19 09:56 exenatide [From [place]] Allergy Unknown Unknown Verified 07/24/19 09:56 lisinopril AdvReac Mild Cough Verified 07/24/19 09:56 Past Medical History - Past Medical History [facility] Narrative: Is on Eliquis Medical History (Last Reviewed 06/25/19 @ 10:38 by Yamel Haji RN) Cardiac arrest (Acute) Respiratory failure (Acute) Congestive heart failure (Acute) Fluid overload (Chronic) Acute decompensated heart failure (Acute) Cellulitis of toe (Acute) Hypoxia (Acute) Acute respiratory failure (Acute) Pulmonary edema with congestive heart failure (Acute) Acute respiratory failure with hypoxia (Acute) Anemia (Chronic) Upper respiratory tract infection (Chronic) Hypertensive renal disease with renal failure (Chronic) Hypertensive renal disease (Chronic) Edema (Chronic) Diabetes mellitus type 2 in obese (Chronic) Vitamin D deficiency (Acute) Tobacco abuse (Acute) Testosterone deficiency (Acute) Sleep apnea (Chronic) Secondary hyperparathyroidism of renal origin (Chronic 08/12/13) Proteinuria (Chronic) Peripheral neuropathy (Acute) Peptic ulcer disease (Acute) Osteoarthritis, knee (Acute) Obesity (Acute) Muscle cramps (Acute 03/07/14) correction current use of insulin (Acute) Hypertension, essential (Acute) Hyperlipemia (Acute) Hyperkalemia (Acute 07/12/14) HTN (hypertension) (Chronic) Gastroesophageal reflux (Acute) Erectile dysfunction (Acute) Diabetic nephropathy (Acute) Diabetes mellitus type II, uncontrolled (Chronic) Osteoarthrosis (Acute) Congestive heart failure (Acute) Colon polyps (Acute) Chronic obstructive pulmonary disease (Acute) CAD (coronary artery disease) (Acute) Back pain (Acute) Anemia in chronic kidney disease (Chronic 08/12/13) Past Surgical History (Last Reviewed 06/25/19 @ 10:38 by Yamel Haji RN) History of arthroscopic knee surgery (Acute) History of cataract surgery (Chronic) Family History (Last Updated 07/07/19 @ 08:07 by Tanika Santiago MD) Sister Diabetes mellitus Father No problems noted. Mother No problems noted. 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 Absent: EOMI (Mild exotropia primarily the left eye.), scleral icterus ENT: Present: normal oropharynx, mucous membranes moist Neck: Present: trachea midline. Absent: lymphadenopathy, thyromegaly Neck - focused: Absent: carotid bruit Chest: Present: symmetric chest wall rise Respiratory: Present: normal lung sounds bilaterally. Absent: respiratory distress, wheezes, stridor, accessory muscle use, prolonged expiratory phase Cardiovascular: Present: regular rate, tachycardia, systolic murmur. Absent: diastolic murmur Type of murmur: systolic, blowing, soft Location of murmur: LUSB Intensity of murmur: 2/6 Pitch of murmur: Medium Abdominal: Present: soft, other (Exam also demonstrates a small to moderate faustino ana of the abdominal wallAnterior left, not particularly tender, he attributes this to his needle injections of insulin.). Absent: distention, tenderness, guarding, rebound, rigidity, organomegaly, mass Extremities: Present: other (Left fifth finger with a scab. Patient reports stitches recently removed and that he had the partial amputation 1 month ago related to a significant injury. Right below the knee amputation.). Absent: pedal edema, pretibial edema, calf tenderness Back: Absent: CVA tenderness (R), CVA tenderness (L), spinous process tenderness Neurological: Present: alert, oriented X3, other (Quickly goes back to sleep/resting.) Psychiatric: Present: flat affect, serious (Somewhat). Absent: depressed, agitated, anxious Skin: Present: warm, dry Course Vital Signs Temperature 97.5 F 07/24/19 09:53 Pulse Rate 112 H 07/24/19 09:53 Respiratory Rate 16 07/24/19 09:53 Pulse Oximetry (%) 86 L 07/24/19 09:53 Temperature 97.5 F 07/24/19 09:53 Pulse Rate 99 H 07/24/19 11:52 Respiratory Rate 19 07/24/19 11:52 Blood Pressure 99/75 07/24/19 11:52 Pulse Oximetry (%) 100 07/24/19 11:52 Weakness - [facility] Narrative Medical decision making narrative: Patient seems somewhat lethargic and had significant hypoxia that is unexpected with a recent pneumonia. Multiple labs, imaging, ABG, EKG, etc. 10:10 AM - EKG shows a right bundle branch block and old inferior MS but otherwise fairly unremarkable. Venous blood gas demonstrates pH 7.40, PCO2 of 51, PO2 26, base excess 5.7, bi carb 31.6. Patient's oxygen FiO2 was decreased from 6 L down to 5 or 4 and he was placed on BiPAP. 12:05 PM - spoke with family. Patient is resting peacefully with the BiPAP. Willingness to have him be admitted. 12:06 PM - chest x-ray demonstrates increased infiltrates on the right side. This has not been read by radiology and I called and requested a an official reading. 12:18 PM - chest x-ray read as an increase infiltrates, not likely to be fluid overload. 12:24 PM - I asked staff to help contact Dr. Kirby, to let him know interpretation of the x-ray and that patient was discharged on amoxicillin recently so consider whether Zosyn is the correct antibiotic. - Lab Data Lab results reviewed: Yes I reviewed the patient's lab results. Result diagrams: 07/24/19 10:30 07/24/19 10:29 Lab Results 07/24/19 07/24/19 07/24/19 Range/Units 10:29 10:29 10:30 WBC 13.9 H (4.5-11.0) K/mcL RBC 4.49 L (4.50-5.90) M/mcL Hgb 12.1 L (13.5-16.5) g/dL Hct 38.1 L (41.0-55.0) % MCV 84.9 (80.0-100.0) fL MCH 27.0 (26.0-34.0) pg MCHC 31.8 (31.0-36.0) g/dL RDW 18.9 H (11.5-14.5) % Plt Count 294 (140-440) K/mcL MPV 8.7 (7.4-10.4) fL Gran % 93.1 H (38.0-78.0) % Lymph % (Auto) 2.6 L (15.5-49.0) % [place] % (Auto) 4.0 (1.0-12.0) % Eos % (Auto) 0.3 (0.0-7.0) % Baso % (Auto) 0 (0.0-2.0) % Gran # 12.9 H (1.8-8.0) K/mcL Lymph # (Auto) 0.4 L (1.5-4.8) K/mcL [place] # (Auto) 0.6 (0.1-0.9) K/mcL Eos # (Auto) 0 (0.0-0.7) K/mcL Baso # (Auto) 0 (0.0-0.3) K/mcL VBG Lactic Acid 1.4 (0.5-2.0) mmol/L Sodium 135 (133-145) mmol/L Potassium 5.0 (3.3-5.1) mmol/L Chloride 92 L (96-108) mmol/L Carbon Dioxide 27 (22-30) mmol/L Anion Gap 16.0 (8-16) BUN 26 H (8-23) mg/dl Creatinine 3.8 H (0.7-1.2) mg/dl GFR Calculation 16 Glucose 114 H (70-105) mg/dL Calcium 8.9 (8.6-10.4) mg/dl Total Bilirubin 0.5 (0.0-1.0) mg/dL AST 29 (0-37) U/l ALT 14 (0-40) U/l Alkaline Phosphatase 108 (39-117) U/L Total Protein 7.7 (5.9-8.4) gm/dL Albumin 4.1 (3.2-5.2) gm/dL Globulin 3.6 (2.2-3.7) gm/dL Albumin/Globulin Ratio 1.1 (1.0-2.3) - Radiology Data Radiology results reviewed: Yes I reviewed the patient's radiology results. - EKG Data EKG attestation: Yes There are no EKG findings of acute coronary syndrome, Yes This EKG will be read by business services representative Disposition Pt seen by CONSUMER SERVICES ADVISOR/PA only: No Clinical Impression: Hypoxia, Carbon dioxide retention Pneumonia Qualifiers: Pneumonia type: due to unspecified organism Laterality: right Lung location: lower lobe of lung Qualified Code(s): J18.9 - Pneumonia, unspecified organism Disposition: Xfer As Inpt ([facility]) Referrals: Byron Be MD [Primary Care Provider] -
[2019-07-24] MEDS ORDERED: ALTEPLASE 100 MG/100 ML VIAL IV ONE (10:36)
[2019-07-24 10:59] LABS: Basophils # (Auto) 0 K/mcL (0.0-0.3); Basophils % (Auto) 0 % (0.0-2.0); Eosinophils # (Auto) 0 K/mcL (0.0-0.7); Eosinophils % (Auto) 0.3 % (0.0-7.0); Granulocytes % (Auto) 93.1 % (38.0-78.0); Hematocrit 38.1 % (41.0-55.0); Hemoglobin 12.1 g/dL (13.5-16.5); Lymphocytes # (Auto) 0.4 K/mcL (1.5-4.8); Lymphocytes % (Auto) 2.6 % (15.5-49.0); Mean Cell Volume 84.9 fL (80.0-100.0); Mean Corpuscular HGB Conc 31.8 g/dL (31.0-36.0); Mean Platelet Volume 8.7 fL (7.4-10.4); Monocytes # (Auto) 0.6 K/mcL (0.1-0.9); Platelet Count 294 K/mcL (140-440); RBC 4.49 M/mcL (4.50-5.90); Red Cell Distribution Width 18.9 % (11.5-14.5); WBC 13.9 K/mcL (4.5-11.0)
[2019-07-24 11:24] LABS: ALT/SGPT 14 U/l (0-40); AST/SGOT 29 U/l (0-37); Albumin 4.1 gm/dL (3.2-5.2); Albumin/Globulin Ratio 1.1 (1.0-2.3); Alkaline Phosphatase 108 U/L (39-117); Bilirubin,Total 0.5 mg/dL (0.0-1.0); Blood Urea Nitrogen 26 mg/dl (8-23); Calcium 8.9 mg/dl (8.6-10.4); Carbon Dioxide 27 mmol/L (22-30); Chloride 92 mmol/L (96-108); Globulin 3.6 gm/dL (2.2-3.7); Glomerular Filtration Rate 16; Glucose 114 mg/dL (70-105)
[2019-07-24] MEDS ORDERED: VANCOMYCIN 1,500 MG in 0.9 % SODIUM CHLORIDE 250 ML IV ONE (12:03)
[2019-07-24] MEDS ORDERED: PIPERACILLIN SODIUM/TAZOBACTAM 2.25 GM in DEXTROSE 5% IN WATER 50 ML IV ONE (12:07)
--- NOTE | 2019-07-24 12:14 | Internal Med History&Physical ---
Medical - H&P: [facility] Patient information: Note initiated : 07/24/19 at 12:10 pm Service Date, if different from initiated Date: [] Patient: Delonte Gutierres a 64 y/o M admitted on for weakness. Chief Complaint: [] Chief complaint: Shortness of breath following dialysis History of present illness: Mr. Gutierres is a 64 year old M with a history of ESRD on HD/CABG/prosthetic mitral valve and obese who has had multiple episodes of aspiration pneumonia requiring hospitalization now presents to ED with severe shortness of breath and hypoxia noted during dialysis. Patient is accompanied with his Ingrid. She was able to answer most the question. Patient was found to be profoundly dyspneic and hypoxic required and was started on noninvasive ventilation. Per history he was fine this morning however cyanosis noticing abdominal discomfort and nausea followed by emesis. Thereafter he went to hemodialysis and became profoundly hypoxic. He denies associated fever. He was recently discharged on the following treatment for aspiration/nosocomial pneumonia and completed his antibiotics. He was in his baseline state of health until this morning. He had a large Thanksgiving dinner with his family yesterday. He did not have any symptoms then. Rested overnight without any events. He denies fever, chest pain, diarrhea, dysuria. Initial work-up in the ER was consistent with right-sided pneumonia extensive infiltrate. White count over 13,000 with ABG 7.4/61/28. Patient was started on antibiotic coverage. Hospitalist service is consulted to at the time of evaluation patient is on noninvasive ventilation. at bedside. Most of the history was obtained from . Patient is significantly distressed and intermittently nauseous and vomiting. Review of systems A 10 point review of system was performed and is negative except was discussed above Medical - H&P: [facility] Medical history: 2018 -hospitalization pneumonia/streptococcal bacteremia Cardiac arrest (Acute) Respiratory failure (Acute) Congestive heart failure (Acute) Fluid overload (Acute) Acute decompensated heart failure (Acute) Cellulitis of toe (Acute) Hypoxia (Acute) Acute respiratory failure (Acute) Pulmonary edema with congestive heart failure (Acute) Acute respiratory failure with hypoxia (Acute) Anemia (Chronic) Upper respiratory tract infection (Chronic) Hypertensive renal disease with renal failure (Chronic) Hypertensive renal disease (Chronic) Edema (Chronic) Diabetes mellitus type 2 in obese (Chronic) Chronic kidney disease, stage IV (severe) (Chronic) Vitamin D deficiency (Acute) Tobacco abuse (Acute) Testosterone deficiency (Acute) Sleep apnea (Chronic) Secondary hyperparathyroidism of renal origin (Chronic 08/12/13) Proteinuria (Chronic) Peripheral neuropathy (Acute) Peptic ulcer disease (Acute) Osteoarthritis, knee (Acute) Obesity (Acute) Muscle cramps (Acute 03/07/14) 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 (Acute) Hypertension, essential (Acute) Hyperlipemia (Acute) Hyperkalemia (Acute 07/12/14) HTN (hypertension) (Chronic) Gastroesophageal reflux (Acute) Erectile dysfunction (Acute) Diabetic nephropathy (Acute) Diabetes mellitus type II, uncontrolled (Chronic) Osteoarthrosis (Acute) Congestive heart failure (Acute) Colon polyps (Acute) Chronic obstructive pulmonary disease (Acute) Chronic kidney disease, stage II (mild) (Acute) CAD (coronary artery disease) (Acute) Back pain (Acute) Anemia in chronic kidney disease (Chronic 08/12/13) Surgical history: Past Surgical History History of arthroscopic knee surgery (Acute) History of cataract surgery (Chronic) CABG Pertinent family history: Family History Sister Diabetes mellitus Father Acute myocardial infarction, Onset Age: 52 Mother Obesity Medical - H&P: Meds Home Medications Medication Instructions Recorded Confirmed Type DULoxetine HCL [Cymbalta] 30 mg PO DAILY 11/24/18 07/24/19 History Furosemide [Lasix] 160 mg PO BID 11/24/18 07/24/19 History Ranitidine HCl [Heartburn Relief] 150 mg PO BID 11/24/18 07/24/19 History Gabapentin [Neurontin] 100 mg PO DAILY 03/16/19 07/24/19 History Pramipexole Di-HCl [Pramipexole 0.25 mg PO HSP 03/16/19 07/24/19 History Dihydrochloride] Rosuvastatin [Crestor] 10 mg PO HS 03/16/19 07/24/19 History semaglutide 0.25 mg or 0.5 mg (2 0.25 mg SUB-Q WEEKLY #1 ml 03/27/19 07/24/19 History mg/1.5 mL) subcutaneous pen injector allopurinol 100 mg tablet 50 mg PO QDAY #45 tab 05/14/19 07/24/19 Rx losartan 50 mg tablet 50 mg PO QDAY #90 tab 05/14/19 07/24/19 Rx calcium acetate 667 mg tablet 667 mg PO .QIDCC #360 tab 06/01/19 07/24/19 Rx sevelamer HCl 800 mg tablet 1,600 mg PO TIDCC 06/01/19 07/24/19 History apixaban 2.5 mg tablet 2.5 mg PO BID tab 06/25/19 07/24/19 History insulin glargine 100) 100 unit/mL 55 unit SUB-Q BID ml 06/25/19 07/24/19 History subcutaneous solution Acetaminophen [Pain Relief] 325 mg PO Q4HP PRN 07/06/19 07/24/19 History Aspirin [Adult Low Dose Aspirin EC] 81 mg PO DAILY 07/06/19 07/24/19 History Betamethasone Dipr Oint 0.05% 1 appful TOPICAL BID 07/06/19 07/24/19 History [Diprolene] Calcium Carbonate [Tums] 500 mg CHEWED 3XW PRN 07/06/19 07/24/19 History Cider Vinegar [Apple Cider Vinegar] 5 ml PO QDP PRN 07/06/19 07/24/19 History Folic Acid/Vit B Complex and C 1 tab PO DAILY 07/06/19 07/24/19 History [Dialyvite 800 Tablet] HumaLIN N 1 unit SC BIDCC 07/06/19 07/24/19 History Lubiprostone [Amitiza] 24 mcg PO DAILY 07/06/19 07/24/19 History Mecobalamin [B-12] 1,000 mcg SL DAILY 07/06/19 07/24/19 History Metoclopramide [Reglan] 7.5 mg PO QIDP PRN 07/06/19 07/24/19 History metroNIDAZOLE [Metronidazole] 250 mg PO TID 07/06/19 07/24/19 History oxyCODONE [Oxycontin] 10 mg PO BID 07/06/19 07/24/19 History Amoxicillin/Potassium Clav 875 mg PO Q12H #8 tab 07/09/19 07/24/19 Rx [Augmentin] Allergies Allergy/AdvReac Type Severity Reaction Status Date / Time iron [IRON] Allergy Severe Anaphylaxis Verified 07/24/19 09:56 hydrocodone [From [place]] Allergy Mild Hives Verified 07/24/19 09:56 exenatide [From [place]] Allergy Unknown Unknown Verified 07/24/19 09:56 lisinopril AdvReac Mild Cough Verified 07/24/19 09:56 Medical - H&P: Exam - Constitutional Vitals: Temp Pulse Resp BP Pulse Ox 97.5 F 99 H 19 99/75 100 07/24/19 09:53 07/24/19 11:52 07/24/19 11:52 07/24/19 11:52 07/24/19 11:52 General appearance: moderate distress (Nausea and short of breath) Exam: Patient nauseous and frequently vomiting On noninvasive ventilation Appears very distressed but responding to commands Head normocephalic Oral cavity dry No ear nose discharge Neck no lymphadenopathy Bilateral diffuse bronchial breath sounds/inspiratory crackles Irregular rhythm/PSM murmur Abdomen soft nontender Lower extremity right BKA stump wound No cyanosis or clubbing Skin no suspicious lesion Anxious and distressed Neuro moving all extremities Medical - H&P: Reslt - Labs CBC & Chem 7: 07/24/19 10:30 07/24/19 10:29 Labs: Short CBC 07/24/19 Range/Units 10:30 WBC 13.9 H (4.5-11.0) K/mcL Hgb 12.1 L (13.5-16.5) g/dL Hct 38.1 L (41.0-55.0) % Plt Count 294 (140-440) K/mcL BMP 07/24/19 10:29 Sodium 135 Potassium 5.0 Chloride 92 L Carbon Dioxide 27 BUN 26 H Creatinine 3.8 H Glucose 114 H Calcium 8.9 Liver Function 07/24/19 Range/Units 10:29 Total Bilirubin 0.5 (0.0-1.0) mg/dL AST 29 (0-37) U/l ALT 14 (0-40) U/l Alkaline Phosphatase 108 (39-117) U/L Albumin 4.1 (3.2-5.2) gm/dL Medical - H&P: A/P (1) Acute respiratory failure with hypoxia Current visit: No Status: Acute * Acute respiratory failure with hypoxia-recurring multiple episodes within the last few months and recent hospitalization early June. Chest infiltrates consistent with pulmonary edema/aspiration/consolidative changes. Initiate noninvasive ventilation/nephrology consult for HD * Nosocomial pneumonia-broad antibiotic coverage * Recurrent nausea-abdominal imaging to rule out SBO * Right BKA stump wound-wound care consult * ESRD on HD-consult nephrology * History of CAD status post CABG/cardiac arrest. recent echocardiogram February EF 55% * DM type II/PVD-continue basal prandial insulin/CCD * Status post BKA/PVD continue anticoagulation on apixaban * Hypertension-hold antihypertensives * History of glaucoma continue latanoprost/timolol * Neuropathy continue gabapentin * Chronic pain on oral hydromorphone at home * Anxiety disorder continue duloxetine * Restless leg syndrome on pramipexole at home * Mitral Valve replacement * Chronic anticoagulation on apixaban * Paroxysmal atrial fibrillation, rate controlled * Full code Plan * ICU admit , [place] 2 score 20. Critically ill * Noninvasive mechanical ventilation/ABGs/titration/serial chest imaging * Intubate if worsening respiratory status * Start antibiotic coverage for nosocomial pathogen * Abdominal imaging to rule out SBO * nephrology consult for HD * Wound care consult for right BKA stump wound Time spent on history and physical in excess of 70 minutes. Additional critical care time spent 55 minutes on management of respiratory failure/noninvasive ventilation/discussion with physician
[2019-07-24] MEDS ORDERED: DEXTROSE 5% IN WATER 50 ML IV ONE (12:30)
[2019-07-24] MEDS ORDERED: ONDANSETRON 4 MG/2 ML VIAL IV ONE (12:47)
[2019-07-24] MEDS ORDERED: VANCOMYCIN PER PHARMACY IV SCH (13:21)
[2019-07-24] MEDS ORDERED: POLYETHYLENE GLYCOL 3350 17 GM PACKET PO PRN (13:21)
[2019-07-24] MEDS ORDERED: hydrALAZINE 20 MG/ML VIAL IV PRN (13:21)
[2019-07-24] MEDS ORDERED: MELATONIN 3 MG TABLET PO PRN (13:21)
[2019-07-24] MEDS ORDERED: ACETAMINOPHEN 650 MG/65 ML BOTTLE IV PRN (13:21)
[2019-07-24] MEDS ORDERED: ONDANSETRON 4 MG/2 ML VIAL IV PRN (13:21)
[2019-07-24] MEDS ORDERED: ONDANSETRON 4 MG ODT TABLET SL PRN (13:21)
[2019-07-24] MEDS ORDERED: DEXTROSE 50% 50 ML VIAL IV PRN (13:21)
[2019-07-24] MEDS ORDERED: BISACODYL 10 MG SUPP.RECT PR PRN (13:21)
[2019-07-24] MEDS ORDERED: IPRATROPIUM/ALBUTEROL 3 ML AMPUL.NEB NEB PRN (13:21)
[2019-07-24] MEDS ORDERED: METOPROLOL TARTRATE 5 MG/5 ML VIAL IV PRN (13:21)
[2019-07-24] MEDS ORDERED: guaiFENesin/CODEINE 10 ML UDC PO PRN (13:21)
[2019-07-24] MEDS ORDERED: DEXTROSE 31 GM ORAL.SUSP PO PRN (13:21)
[2019-07-24] MEDS ORDERED: ACETAMINOPHEN 325 MG TABLET PO PRN (13:21)
[2019-07-24] MEDS ORDERED: PROMETHAZINE 25 MG/ML VIAL IV PRN (13:25)
[2019-07-24] MEDS ORDERED: NOREPINEPHRINE BITARTRATE 16 MG in 0.9 % SODIUM CHLORIDE 234 ML IV SCH (13:30)
[2019-07-24] MEDS ORDERED: PROPOFOL 200 MG/20 ML VIAL IV ONE (14:00)
[2019-07-24] MEDS ORDERED: SUCCINYLCHOLINE 20 MG/ML ML IV ONE (14:00)
[2019-07-24] MEDS ORDERED: MIDAZOLAM 5 MG/5 ML VIAL IV ONE (14:00)
[2019-07-24] MEDS ORDERED: 0.9 % SODIUM CHLORIDE 10 ML SYRINGE IV SCH ×2 (14:00→21:00)
[2019-07-24] MEDS ORDERED: 0.9 % SODIUM CHLORIDE 10 ML SYRINGE IV PRN (14:01)
[2019-07-24] MEDS ORDERED: DEXTROSE IV ONE (14:13)
[2019-07-24] MEDS ORDERED: HEPARIN IV ONE (14:13)
[2019-07-24] MEDS ORDERED: HEPARIN/NS 500 ML IV SCH (14:15)
[2019-07-24] MEDS ORDERED: PROPOFOL 1,000 MG in PREMIX 1 BAG IV SCH (14:45)
[2019-07-24] MEDS ORDERED: PROPOFOL 100 ML IV ONE ×2 (14:57→17:31)
[2019-07-24] MEDS ORDERED: fentaNYL 2,500 MCG in 0.9 % SODIUM CHLORIDE 200 ML IV SCH (15:00)
[2019-07-24] MEDS ORDERED: MIDAZOLAM PF 50 MG in 0.9 % SODIUM CHLORIDE 90 ML IV SCH (15:00)
--- NOTE | 2019-07-24 15:35 | XRay Report ---
CLINICAL INFORMATION: Low sats COMPARISON: 07/06/2019 FINDINGS: Mild cardiomegaly is unchanged. Mediastinum and pulmonary vessels are normal. Large patchy infiltrates show increasing consolidation throughout the right lung. Left lung infiltrate has cleared. No effusions. IMPRESSION: Diffuse right lung infiltrate with increasing consolidation has worsened considerably since comparison exam two weeks ago. Suspect pneumonia. Interval clearance of left lung infiltrate Interpreted and Authenticated by: Chris Manzano 07/24/19
--- NOTE | 2019-07-24 15:48 | XRay Report ---
CLINICAL INFORMATION: Central Line Placement COMPARISON: 07/24/2019 1049 hours FINDINGS: Heart size, mediastinum and pulmonary vessels remain normal. Large patchy infiltrate diffusely throughout the right lung is unchanged. Small patchy pneumonia developing in the left base. Endotracheal tip is 6.7 cm above the john. Left IJ tip overlies the IJ brachycephalic junction. No pneumothorax or other complication from line placement IMPRESSION: 1. Large diffuse right lung infiltrate - no change. Small infiltrate is developing in the left base 2. Endotracheal tip 6.7 cm above the john. Left IJ line satisfactory with additional comments Interpreted and Authenticated by: Chris Manzano 07/24/19
[2019-07-24] MEDS ORDERED: VASOPRESSIN 20 UNIT in DEXTROSE 5% IN WATER 99 ML IV SCH (16:00)
--- NOTE | 2019-07-24 16:07 | Transfer Summary ---
Transfer Discharge Sum: Prov Patient information: Note initiated : 07/24/19 at 4:02 pm Service Date, if different from initiated Date: [] Patient: Delonte Gutierres 64 y/o M admitted on 07/24/19 for weakness. Chief Complaint: [] Date of admission: 07/24/19 13:18 Discharge Date: 07/24/19 Primary care physician: Byron Be Consults: 07/24/19 Consult to Physician [CONS] Stat Comment: Consulting Provider: Vazquez Plaza Reason For Exam: Physician to Consult 07/24/19 13:21 Consult to Physician [CONS] Routine Comment: Consulting Provider: Tanika Santiago Reason For Exam: Physician to Consult Transfer Discharge Sum: Diag - Discharge Diagnosis (1) Acute respiratory failure with hypoxia Status: Acute Transfer Discharge Sum: Med - Medications Active and Home Medications: Home Medications DULoxetine HCL [Cymbalta] 30 mg PO DAILY 11/24/18 [History Confirmed 07/24/19] Furosemide [Lasix] 160 mg PO BID 11/24/18 [History Confirmed 07/24/19] Ranitidine HCl [Heartburn Relief] 150 mg PO BID 11/24/18 [History Confirmed 07/24/19] Gabapentin [Neurontin] 100 mg PO DAILY 03/16/19 [History Confirmed 07/24/19] Pramipexole Di-HCl [Pramipexole Dihydrochloride] 0.25 mg PO HSP 03/16/19 [History Confirmed 07/24/19] Rosuvastatin [Crestor] 10 mg PO HS 03/16/19 [History Confirmed 07/24/19] semaglutide 0.25 mg or 0.5 mg (2 mg/1.5 mL) subcutaneous pen injector 0.25 mg SUB-Q WEEKLY #1 ml 03/27/19 [History Confirmed 07/24/19] allopurinol 100 mg tablet 50 mg PO QDAY #45 tab 05/14/19 [Rx Confirmed 07/24/19] losartan 50 mg tablet 50 mg PO QDAY #90 tab 05/14/19 [Rx Confirmed 07/24/19] calcium acetate 667 mg tablet 667 mg PO .QIDCC #360 tab 06/01/19 [Rx Confirmed 07/24/19] sevelamer HCl 800 mg tablet 1,600 mg PO TIDCC 06/01/19 [History Confirmed 07/24/19] apixaban 2.5 mg tablet 2.5 mg PO BID tab 06/25/19 [History Confirmed 07/24/19] insulin glargine 100) 100 unit/mL subcutaneous solution 55 unit SUB-Q BID ml 06/25/19 [History Confirmed 07/24/19] Acetaminophen [Pain Relief] 325 mg PO Q4HP PRN 07/06/19 [History Confirmed 07/24/19] Aspirin [Adult Low Dose Aspirin EC] 81 mg PO DAILY 07/06/19 [History Confirmed 07/24/19] Betamethasone Dipr Oint 0.05% [Diprolene] 1 appful TOPICAL BID 07/06/19 [History Confirmed 07/24/19] Calcium Carbonate [Tums] 500 mg CHEWED 3XW PRN 07/06/19 [History Confirmed 07/24/19] Cider Vinegar [Apple Cider Vinegar] 5 ml PO QDP PRN 07/06/19 [History Confirmed 07/24/19] Folic Acid/Vit B Complex and C [Dialyvite 800 Tablet] 1 tab PO DAILY 07/06/19 [History Confirmed 07/24/19] HumaLIN N 1 unit SC BIDCC 07/06/19 [History Confirmed 07/24/19] Lubiprostone [Amitiza] 24 mcg PO DAILY 07/06/19 [History Confirmed 07/24/19] Mecobalamin [B-12] 1,000 mcg SL DAILY 07/06/19 [History Confirmed 07/24/19] Metoclopramide [Reglan] 7.5 mg PO QIDP PRN 07/06/19 [History Confirmed 07/24/19] metroNIDAZOLE [Metronidazole] 250 mg PO TID 07/06/19 [History Confirmed 07/24/19] oxyCODONE [Oxycontin] 10 mg PO BID 07/06/19 [History Confirmed 07/24/19] Amoxicillin/Potassium Clav [Augmentin] 875 mg PO Q12H #8 tab 07/09/19 [Rx Confirmed 07/24/19] Active Medications Acetaminophen (Tylenol) 650 mg PO Q4-6HP PRN; Protocol PRN Reason: Per Pain Protocol/Fever > 101 Albuterol/Ipratropium (Duoneb) 3 ml NEB Q4HP PRN PRN Reason: Shortness Of Breath Bisacodyl (Dulcolax) 10 mg HI Q2-3DAYS PRN PRN Reason: Constipation Budesonide (Pulmicort) 0.5 mg NEB Q12 LEX Dextrose (Dextrose 50%) 0 ml IV UD PRN PRN Reason: Hypoglycemia Diagnostic Test (Pha) (Accu-Chek) 1 each FS ACHS LEX Docusate Sodium (Colace) 100 mg PO BID LEX Glucose (Insta-Glucose) 15 gm PO PRN PRN PRN Reason: Hypoglycemia Guaifenesin/Codeine Phosphate (Robitussin Ac) 10 ml PO Q4HP PRN PRN Reason: Cough Hydralazine HCl (Apresoline) 10 mg IV Q4-6HP PRN PRN Reason: Hypertension Acetaminophen (Ofirmev) 650 mg in 65 mls @ 130 mls/hr IV Q6HP PRN; Protocol PRN Reason: Per Pain Protocol/Fever > 101 Piperacillin Sod/Tazobactam (Sod 2.25 gm/ Dextrose) 50 mls @ 100 mls/hr IV Q12H LEX; Protocol Norepinephrine Bitartrate 16 (mg/ Sodium Chloride) 250 mls @ 9.375 mls/hr IV Q24H LEX; Protocol Last Admin: 07/24/19 14:04 Dose: 10 mcg/min, 9.375 mls/hr Documented by: Heparin Sodium/Sodium Chloride (Heparin/Ns) 500 mls @ 0 mls/hr IV .Q0M LEX; Protocol Fentanyl 2,500 mcg/ Sodium (Chloride) 250 mls @ 7.779 mls/hr IV Q24H LEX; Protocol Propofol 1,000 mg/ Premix 100 mls @ 3.334 mls/hr IV .Q24H LEX; Protocol Insulin Human Lispro (Humalog) 0 unit SQ ACHS LEX; Protocol Iron Carb/Multivit/[place]/Folic Acid (Multivitamin W/Minerals) 1 tab PO DAILY LEX Melatonin (Melatonin 3mg Tablet) 3 mg PO HSP PRN PRN Reason: Insomnia Metoprolol Tartrate (Lopressor) 5 mg IV Q5M PRN PRN Reason: Heart Rate > 140 bpm Ondansetron HCl (Zofran Odt) 4 mg SL Q4-6HP PRN; Protocol PRN Reason: Nausea And Vomiting Ondansetron HCl (Zofran) 4 mg IV Q4-6HP PRN; Protocol PRN Reason: Nausea And Vomiting Polyethylene Glycol (Miralax) 17 gm PO DAILYP PRN PRN Reason: Constipation Promethazine HCl (Phenergan) 6.25 mg IV Q4-6HP PRN PRN Reason: Nausea And Vomiting Last Admin: 07/24/19 13:45 Dose: 6.25 mg Documented by: Senna/Docusate Sodium (Senna Plus Tablet) 1 tab PO HS LEX Sodium Chloride (Saline Flush) 10 ml IV Q8 LEX Sodium Chloride (Saline Flush) 10 ml IV Q12 LEX Sodium Chloride (Saline Flush) 10 ml IV UD PRN PRN Reason: Flush Vancomycin HCl (Vancomycin Per Pharmacy) 1 order IV UD LEX; Protocol Transfer Discharge Sum: Hosp Hospital course: Transfer diagnosis * Acute respiratory failure with hypoxia-traumatic worsening requiring mechanical ventilation. 100% FiO2/12 PEEP with PaO2 86. multiple recent ho spitalizations due to aspiration/nosocomial pneumonia. Transfer to tertiary center due to inability to maintain oxygenation despite mechanical ventilation. * Mechanical ventilation on sedation, continue fentanyl/propofol, Plateau Pr 37. PEEP12/tidal volume 14/FiO2 100%, last ABG 7.35/PaO2 86 * Septic shock-on dual vasopressors. 250 crystalloid bolus. Keep map at goal, left IJ central line secured * Aspiration versus nosocomial pneumonia-on broad antibiotic coverage. Prior medical issues as below * ESRD on HD-status post HD today. * History of CAD status post CABG/cardiac arrest . recent echocardiogram February EF 55% * DM type II/PVD-continue basal prandial insulin/CCD * Status post BKA/PVD on anticoagulation on apixaban * Hypertension-held antihypertensives * History of glaucoma continue latanoprost/timolol * Neuropathy on gabapentin * Chronic pain on oral hydromorphone at home * Anxiety disorder continue duloxetine * Restless leg syndrome on pramipexole at home * Mitral Valve repair/replacement * Right BKA stump wound * Chronic anticoagulation on apixaban * Paroxysmal atrial fibrillation Brief hospital course Mr. Gutierres is a 64 year old M with a history of ESRD on HD/CABG/prosthetic mitral valve and obese who has had multiple episodes of aspiration pneumonia requiring hospitalization now presents to ED with severe shortness of breath and hypoxia noted during dialysis. Patient is accompanied with his Ingrid. She was able to answer most the question. Patient was found to be profoundly dyspneic and hypoxic required and was started on noninvasive ventilation. Per history he was fine this morning however cyanosis noticing abdominal discomfort and nausea followed by emesis. Thereafter he went to hemodialysis and became profoundly hypoxic. He denies associated fever. He was recently discharged on the following treatment for aspiration/nosocomial pneumonia and completed his antibiotics. He was in his baseline state of health until this morning. He had a large Thanksgiving dinner with his family yesterday. He did not have any symptoms then. Rested overnight without any events. He denies fever, chest pain, diarrhea, dysuria. Initial work-up in the ER was consistent with right-sided pneumonia extensive infiltrate. White count over 13,000 with ABG 7.4/61/28. Patient was started on antibiotic coverage. Hospitalist service is consulted to at the time of evaluation patient is on noninvasive ventilation. at bedside. Most of the history was obtained from . Patient is significantly distressed and intermittently nauseous and vomiting. ADDENDUM- Patient rapidly deteriorated. Intubated and started on mechanical ventilation. Systolics dropped to 70s. Started on vasopressors to keep map at goal. Multiple family members at bedside. Informed about poor prognosis. Despite 100% FiO2/12 PEEP patient unable to oxygenate. Emergent central venous access/A-line secured. Transfer coordination to tertiary center initiated. Case discussed with Dr. Matthews Vandervoort electronic component processor. Highly appreciate an accepting further management of this critically ill and extremely complex patient Patient will be transferred via air ambulance - Time Spent with Patient Total time spent providing and/or coordinating transfer services: Greater than 30 minutes Transfer Discharge Sum: Exam - Constitutional Vitals: Vital Signs Temp Pulse Resp Resp BP Pulse Ox Pulse Ox 07/24/19 15:46 17 87 L 07/24/19 13:17 111 H 38 H 180/116 82 L 07/24/19 13:16 115 H 34 H 180/116 71 L 07/24/19 13:01 120 H 21 185/168 92 07/24/19 12:47 98 H 27 H 131/120 97 07/24/19 12:46 99 H 21 92/51 97 07/24/19 12:31 92 H 18 92/51 97 07/24/19 12:15 96 H 20 115/70 98 07/24/19 12:01 102 H 15 107/49 99 07/24/19 11:52 99 H 19 99/75 100 07/24/19 11:46 86 20 99/75 96 07/24/19 11:32 35 L 18 105/52 98 07/24/19 11:18 94 H 18 103/57 99 07/24/19 11:05 103 H 18 130/72 90 07/24/19 11:02 101 H 19 130/72 92 07/24/19 10:55 102 H 17 95 07/24/19 10:46 100 H 20 144/104 90 07/24/19 09:53 97.5 F 112 H 16 86 L Intake and Output 07/24/19 07/24/19 07/24/19 05:59 13:59 21:59 Intake Total 50 Balance 50 Intake: IV 50 Zosyn 2.25 gm In Dextrose 5% in 50 Water 50 ml @ 100 mls/hr IV ONCE ONE Rx#:[id number] Other: Weight 245 lb Patient Weight 07/25/19 05:59 Weight 245 lb Transfer Discharge Sum: Data Procedures and tests throughout hospitalization: Pending Orders 07/24/19 Consult to Physician [CONS] Stat 07/24/19 10:32 VBG (RT) NOW 07/24/19 10:49 Bipap [BIPAP] NOW 07/24/19 12:06 Resuscitation Status Routine 07/24/19 12:51 XR abdomen 1V Stat 07/24/19 13:21 Acetaminophen [Ofirmev] 650 mg in 65 ml IV Q6HP Acetaminophen [Tylenol] 650 mg PO Q4-6HP PRN Bisacodyl [Dulcolax] 10 mg HI Q2-3DAYS PRN Dextrose 50% See Dose Instructions IV UD PRN Dextrose [Insta-Glucose] 15 gm PO PRN PRN Ipratropium/Albuterol [Duoneb] 3 ml NEB Q4HP PRN Melatonin [Melatonin 3Mg Tablet] 3 mg PO HSP PRN Metoprolol Tartrate [Lopressor] 5 mg IV Q5M PRN Ondansetron [Zofran Odt] 4 mg SL Q4-6HP PRN Ondansetron [Zofran] 4 mg IV Q4-6HP PRN Polyethylene Glycol 3350 [Miralax] 17 gm PO DAILYP PRN Vancomycin Per Pharmacy 1 order IV UD guaiFENesin/CODEINE [Robitussin AC] 10 ml PO Q4HP PRN hydrALAZINE [Apresoline] 10 mg IV Q4-6HP PRN 07/24/19 13:21 Case Management Referral .Routine Admit as Inpatient Routine Ambulate-Progressive PRN Blood Culture PRN PRN front desk monitor CONT Condition Routine Elevate head of bed .ROUTINE Intake and Output Q1H Occult blood, stool, guaic poc .ALL STOOLS Oral hygiene .ROUTINE PICC Line PRN Specialty Bed PRN Vital Signs Q1H Weight Monitoring QHS Consult to Physician [CONS] Routine RD to Adjust Diet/Supplements as Needed Routine Occupational Therapy Eval & Tx DAILY Physical Therapy Eval & Tx QD-BID Incentive Spirometry Assess/Tx Q2HWA Nebulizer management .Routine Oxygen Order .Routine 07/24/19 13:22 Renal/Consistent Carbohydrate Diet 07/24/19 13:25 Promethazine [Phenergan] 6.25 mg IV Q4-6HP PRN 07/24/19 13:30 Norepinephrine Bitartrate [Levophed] 16 mg 0.9 % Sodium Chloride [Sodium Chloride 0.9%] 234 ml IV Q24H 07/24/19 14:00 0.9 % Sodium Chloride [Saline Flush] 10 ml IV Q8 07/24/19 14:01 0.9 % Sodium Chloride [Saline Flush] 10 ml IV UD PRN 07/24/19 14:02 Central Line Dressing Change PRN Central Line ONCE Consent for Procedure ONCE 07/24/19 14:04 Arterial Line Dressing Change PRN Arterial Line NOW 07/24/19 14:15 Heparin/Ns 500 ml IV KVO mls/hr 07/24/19 14:45 Premix 1 bag Propofol [Diprivan] 1,000 mg IV 5 mcg/kg/min 07/24/19 15:00 fentaNYL 2,500 mcg 0.9 % Sodium Chloride [Sodium Chloride 0.9%] 200 ml IV Q24H 07/24/19 15:48 ABG (RT) NOW 07/24/19 17:00 Accu-Chek 1 each FS ACHS Insulin Lispro [HumaLOG] See Dose Instructions SQ ACHS 07/24/19 21:00 0.9 % Sodium Chloride [Saline Flush] 10 ml IV Q12 Budesonide [Pulmicort] 0.5 mg NEB Q12 Docusate Sodium [Colace] 100 mg PO BID Piperacillin Sodium/Tazobactam [Zosyn] 2.25 gm Dextrose 5% in Water 50 ml IV Q12H Sennosides/Docusate Sodium [Senna Plus Tablet] 1 tab PO HS 07/25/19 04:00 Complete Blood Count Man Dif DAILY Inpatient Panel DAILY 07/25/19 09:00 Multivit,Ther Iron,Ca,FA & Min [Multivitamin W/Minerals] 1 tab PO DAILY 07/26/19 04:00 Complete Blood Count Man Dif DAILY Inpatient Panel DAILY 07/26/19 14:02 Central Line Dressing Change Q48 07/27/19 04:00 Complete Blood Count Man Dif DAILY Inpatient Panel DAILY 07/28/19 04:00 Complete Blood Count Man Dif DAILY Inpatient Panel DAILY 07/28/19 14:04 Arterial Line Dressing Change Q4D 07/29/19 04:00 Complete Blood Count Man Dif DAILY Inpatient Panel DAILY Transfer Discharge Sum: A/P - Problem Maintenance (1) Acute respiratory failure with hypoxia Status: Acute - Plan Functional capacity at transfer: bed bound (Mechanical ventilation) Overall status at transfer: patient is not back to baseline Disposition: [facility]
[2019-07-24] MEDS ORDERED: 0.9 % SODIUM CHLORIDE 250 ML IV SCH (16:15)
[2019-07-24] MEDS ORDERED: INSULIN LISPRO 1 UNIT/0.01 ML UNIT SQ SCH (17:00)
[2019-07-24] MEDS ORDERED: PIPERACILLIN SODIUM/TAZOBACTAM 2.25 GM in DEXTROSE 5% IN WATER 50 ML IV SCH (21:00)
[2019-07-24] MEDS ORDERED: DOCUSATE SODIUM 100 MG CAPSULE PO SCH (21:00)
[2019-07-24] MEDS ORDERED: SENNOSIDES/DOCUSATE SODIUM 1 TAB TABLET PO SCH (21:00)
[2019-07-24] MEDS ORDERED: BUDESONIDE 0.5 MG/2 ML AMPUL.NEB NEB SCH (21:00)
[2019-07-25] MEDS ORDERED: MULTIVIT,THER IRON,CA,FA & MIN 1 TABLET PO SCH (09:00)
== END 2019-07-24 17:45 | disposition short-term general hospital (02) | DRG 871 ==
LOC: ED 09:53 → ICU 13:18
PROVIDERS: ADMIT Internal Medicine; ATTEND Internal Medicine